=== PATIENT | male | born 1945 | race Hispanic/Latino ===

== ENCOUNTER 2019-03-05 14:31 | Inpatient (IN) | payer OTHER, SELFPAY ==
[2019-03-05] MEDS ORDERED: Nitroglycerin 2% Ointment 1 INCH/1 GM Packet ONE (14:54)
--- NOTE | 2019-03-05 15:26 | RAD ---
SINGLE VIEW OF THE CHEST: COMPARISON: None. HISTORY: Shortness of breath for 2 weeks. FINDINGS: Single view of the chest shows a normal sized cardiomediastinal silhouette. There is no evidence of c onsolidation, mass, or pleural effusion. The bones are unremarkable. IMPRESSION: No evidence of acute cardiopulmonary disease. POS: C
[2019-03-05 15:27] LABS: #Basophils 0.1 thou/uL (0.0-0.2); #Eosinphils 0.2 thou/uL (0.0-0.7); #Lymphocytes 1.7 thou/uL (1.20-3.40); #Monocytes 0.6 thou/uL (0.11-0.59); #Neutrophils 5.5 thou/uL (1.40-6.50); %Basophils 0.7 % (0.0-1.0); %Eosinophils 2.1 % (0.0-10.0); %Lymphocytes 21.1 % (21.0-51.0); %Monocytes 7.4 % (0.0-10.0); %Neutrophils 68.8 % (42.0-75.0); Hemoglobin 13.1 g/dL (14.0-18.0); Mean Corpuscular HGB CONC 31.2 g/dL (32.0-36.0); Mean Corpuscular Hemoglobin 29.5 pg (27.0-31.0); Mean Corpuscular Volume 94.7 fL (78.0-98.0); Mean Platelet Volume 7.2 fL (7.4-10.4); Platelet Count 262 thou/uL (130-400); RBC Distribution Width 13.4 % (11.5-14.5); Red Blood Cell (RBC) Count 4.44 mill/uL (4.70-6.10)
[2019-03-05 15:40] LABS: ALT (SGPT) 17 U/L (8-55); AST (SGOT) 15 U/L (5-34); Albumin 4.1 g/dL (3.4-4.8); Alkaline Phosphatase 68 U/L (40-150); Anion Gap 13 mmol/L (10-20); BUN (Urea Nitrogen) 15 mg/dL (8.4-25.7); Bilirubin, Total 0.8 mg/dL (0.2-1.2); CK (CPK) 88 U/L (30-200); Calc. Creatinine Clearance 0 mL/min (70-130); Calcium 10.3 mg/dL (7.8-10.44); Carbon Dioxide 25 mmol/L (23-31); Chloride 106 mmol/L (98-107); Estimated GFR-MDRD 69; Globulin 2.8 g/dL (2.4-3.5); Glucose 147 mg/dL (83-110); Lipase 9 U/L (8-78); Potassium 4.9 mmol/L (3.5-5.1); Protein, Total 6.9 g/dL (5.8-8.1); Sodium 139 mmol/L (136-145)
[2019-03-05 16:02] LABS: CKMB 5.3 ng/mL (0-6.6)
[2019-03-05] MEDS ORDERED: Dextrose 5% in Water 1,000 ML IV PRN (18:23)
[2019-03-05] MEDS ORDERED: HumaLOG 300 UNITS/3 ML VIAL SC PRN (18:23)
[2019-03-05] MEDS ORDERED: Dextrose 50% Abboject 50 ML SYRINGE SLOW IVP PRN (18:23)
[2019-03-05] MEDS ORDERED: Artificial Tears 18 DROP/0.9 ML EA EYE PRN (18:39)
[2019-03-05] MEDS ORDERED: Furosemide 40 MG/4 ML VIAL SLOW IVP SCH (19:15)
--- NOTE | 2019-03-05 19:20 | HP ---
PRIMARY CARE PROVIDER: [facility]. CHIEF COMPLAINT: "Stopped breathing." HISTORY OF PRESENT ILLNESS: This is a 74-year-old male with history of hypertension, diabetes, dyslipidemia, hypothyroidism, coronary artery disease with history of stents, who presents to the emergency room due to difficulty breathing. The patient reports about a week ago the onset of difficulty lying down at night to sleep, requiring him to sit up for him to breathe. He reports that the symptoms continued and today while sitting up he was unable to catch his breath. He contacted the nurse at the [facility] facility, who administered oxygen, but no medications. He was directed to the emergency room for further evaluation. The patient does endorse chest pressure for a few minutes today that was better when he stood up and started walking around. He denies any precipitating or relieving factors. Denies any other chest pain, nausea, or vomiting. He has noticed abdominal bloating that is new today. He does have a history of coronary disease and reports cardiac stents placed 3 or 4 years ago. In the emergency room, the patient evaluated, received nitropaste of 1 inch and hospitalist called for admission. ALLERGIES: NO KNOWN DRUG ALLERGIES. CURRENT MEDICATIONS: Reconciled with the list provided by the [facility]. 1. Aspirin 81 mg daily. 2. Carbamazepine extended release three tablets once a day. 3. Vitamin B12 injections 1000 mcg q.3 weeks. 4. Furosemide 20 mg b.i.d. 5. Glipizide 10 mg b.i.d. 6. Levothyroxine 150 mcg plus 25 mcg each once daily. 7. Metoprolol tartrate 25 mg b.i.d. 8. Novolin N 7 units at noon, 7 units at bedtime. 9. Pravastatin 40 mg at bedtime. 10. Ranitidine 150 mg daily. 11. Novolin R sliding scale insulin with meals. 12. Metformin 1000 mg b.i.d. 13. As needed Tylenol. PAST MEDICAL HISTORY: 1. Coronary artery disease with history of stents 3 or 4 years ago. 2. GERD. 3. Hypothyroidism secondary to hyperthyroidism for which he received radiation therapy. 4. Osteoarthritis. 5. Diabetes mellitus type 2. 6. Vitamin B12 deficiency. PAST SURGICAL HISTORY: 1. Appendectomy. 2. Tonsillectomy. 3. Back surgery. SOCIAL HISTORY: He denies alcohol or tobacco. He currently is incarcerated. He reports his surrogate decision maker is his , Catherine, and he is a full code. FAMILY HISTORY: Mom, who had a stroke. REVIEW OF SYSTEMS: Positive for abdominal bloating today, itchy watery eyes, chest pressure as noted above. He denies any nausea, vomiting, lower extremity swelling, fevers, or chills. All remaining review of systems are reviewed and negative. PHYSICAL EXAMINATION: VITAL SIGNS: Blood pressure 129/97, pulse 108, respirations 24, sats 99% on 3 L O2, temp 97.7. GENERAL: Awake, alert, responsive, in no apparent distress. The patient is currently in hand and leg cuffs and attended by 2 officers. HEENT: His pupils are equal and round. No scleral icterus. Oral mucosa is pink and moist. NECK: Supple, nontender. No audible carotid bruits. LYMPHATICS: No palpable, cervical, or supraclavicular lymphadenopathy. LUNGS: The patient has right-sided basilar rales. No audible wheezing or rhonchi. HEART: Normal S1 and S2. Regular rate and rhythm. No significant murmur. ABDOMEN: Soft, present bowel sounds, nontender, nondistended. EXTREMITIES: 2+ pitting edema bilateral. VASCULAR: 2+ dorsalis pedis pulses. SKIN: No visible rashes. NEUROLOGIC: No focal deficits. PSYCH: Appears euthymic. DIAGNOSTIC DATA: EKG personally reviewed 1st degree AV block with MI interval of 232, no ST changes, abnormal R-wave progression, sinus rhythm with QTc of 456. Chest x-ray personally reviewed. It does show some volume overload by my read, no pleural effusions and per Radiology read, no acute process. LABORATORY DATA: Labs reviewed. CBC; 8, 13.1, 32.1, 262. Chemistry; 139, 4.9, 106, 25, 15, 1.05, 147. Calcium 10.3. LFTs negative. BNP 834. Troponin 0.043. IMPRESSION: 1. Acute heart failure with no reported history of the same, with the symptoms of orthopnea, lower extremity edema, abdominal bloating, on a patient who is on daily diuretic therapy. 2. Coronary artery disease with history of stents and indeterminate troponin level here. 3. Diabetes mellitus, unknown control. 4. Hypertension. 5. Dyslipidemia. 6. Gastroesophageal reflux disease. 7. Eye irritation. 8. Unknown medical problem for which patient is prescribed carbamazepine. PLAN: 1. Admission to the hospital. 2. Start diuresis with IV furosemide dose now, and scheduled b.i.d. dosing starting tomorrow with monitoring renal function and potassium levels. 3. Continuing his current beta arnol, we will obtain an echocardiogram and Cardiology consultation. 4. Continuing the daily aspirin, statin. 5. Check TSH to ensure that he is on appropriate levothyroxine replacement. 6. We will use sliding scale insulin for now, I anticipate long-acting insulin can be added, however, want to see at least overnight what his blood sugars are. Holding metformin and glipizide for now, add back if the patient does not require any studies. 7. We will add some eyedrops for the itchy watery eyes. 8. DVT prophylaxis with pneumatic compression devices. 9. GI prophylaxis, not indicated. We will keep him on an H2 arnol. 10. Code status is full. Surrogate decision maker is his . 11. The patient is at high risk given age comorbidities and current presentation. Reviewed the plan of care with the patient as well as the [facility] attendant. No questions or further needs at the end of evaluation. Anticipate the patient will be here for few days for diuresis, medication adjustment, and monitoring. Job ID: [id number] MTDD
[2019-03-05 19:33] LABS: Troponin I 0.056 ng/mL (< 0.028)
[2019-03-05] MEDS: Pravastatin Sodium 40 MG TAB PO SCH (20:31)
[2019-03-05] MEDS: Metoprolol Tartrate 25 MG TAB PO SCH (20:31)
[2019-03-05] MEDS: Famotidine 20 MG TAB PO SCH (20:31)
[2019-03-05 21:46] VITALS: BMI 35.1
[2019-03-05 21:53] LABS: Troponin I 0.042 ng/mL (< 0.028)
[2019-03-06] MEDS: Acetaminophen 325 MG TAB PO PRN ×3 (00:34→20:31)
[2019-03-06] MEDS: Furosemide 40 MG/4 ML VIAL SLOW IVP SCH ×2 (05:12→13:32)
[2019-03-06] MEDS: Levothyroxine 175 MCG TAB PO SCH (05:12)
[2019-03-06 05:14] LABS: Anion Gap 13 mmol/L (10-20); BUN (Urea Nitrogen) 15 mg/dL (8.4-25.7); Calc. Creatinine Clearance 92 mL/min (70-130); Calcium 10.3 mg/dL (7.8-10.44); Carbon Dioxide 26 mmol/L (23-31); Chloride 104 mmol/L (98-107); Estimated GFR-MDRD 65; Glucose 200 mg/dL (83-110); Potassium 5.3 mmol/L (3.5-5.1); Sodium 138 mmol/L (136-145)
[2019-03-06] MEDS ORDERED: Prevnar 13-Val Conj/PF 0.5 ML SYRINGE IM ONE (09:00)
[2019-03-06] MEDS: Aspirin Chewable 81 MG TAB PO SCH (10:00)
[2019-03-06] MEDS: Metoprolol Tartrate 25 MG TAB PO SCH ×2 (10:00→20:30)
[2019-03-06] MEDS: Famotidine 20 MG TAB PO SCH ×2 (10:00→20:31)
[2019-03-06] MEDS: HumaLOG 300 UNITS/3 ML VIAL SC PRN ×3 (10:01→17:34)
--- NOTE | 2019-03-06 14:39 | PRG ---
DATE OF SERVICE: 03/06/2019 SUBJECTIVE: The patient was seen and examined at the bedside. He is feeling better. His shortness of breath improved. He does not have any chest pain. OBJECTIVE: VITAL SIGNS: Blood pressure is 147/93, pulse is 108, respirations 18, O2 saturation is 95% on room air, and his temperature is 97.8. HEENT: His head is atraumatic and normocephalic. Sclerae are nonicteric. Oral mucosa is slightly dry. NECK: Supple. Obese. HEART: S1 and S2 normal. There is a 2/6 systolic murmur at the left sternal border, mostly audible. LUNGS: Breath sounds diminished at both bases with bilateral crackles at both bases. ABDOMEN: Soft and nontender. Bowel sounds are present. No organomegaly. EXTREMITIES: 1+ peripheral edema similar bilaterally. NEUROLOGICAL: He follows my commands. He moves his all 4 extremities. There is no any motor or sensory deficits. LABORATORY DATA: Sodium of 130, potassium 5.3, chloride 104, CO2 of 26, BUN 15, creatinine 1.10, glycemia is ranging from 147 to 311, and calcium is 10.3. Three sets of troponin I are 0.043, 0.056, and 0.042. BNP 834.4. Third generation TSH is 0.9225. IMPRESSION: 1. Acute heart failure with history of previous problems. 2. Coronary artery disease with history of stents and indeterminate troponin levels. 3. Diabetes mellitus. 4. Hyperlipidemia. 5. Dyslipidemia. 6. Gastroesophageal reflux disease. PLAN: Continue diuresis. Echocardiogram is pending. Cardiology consultation is pending. We will continue his aspirin and statin. He is getting appropriate dose of levothyroxine. His TSH is normal. We will continue his glipizide and long-acting insulin, which is NPH 7 units at bedtime and we will continue DVT prophylaxis. Job ID: [id number]
--- NOTE | 2019-03-06 16:36 | CON ---
DATE OF CONSULTATION: 03/06/2019 REASON FOR CONSULTATION: Shortness of breath. HISTORY OF PRESENT ILLNESS: Mr. Soto is a 74-year-old white gentleman, who [facility], who presented for shortness of breath, where he states that he has been noticing for the last week worsening shortness of breath, difficulty sleeping at night, and cough and shortness of breath when lying flat. He went to see the nurse in the [facility] and eventually was transferred here for further evaluation. He was found to be in volume overload, so he has been started on IV Lasix, and Cardiology is being consulted for this. He states that he has had stents placed about 4 years ago. He does not remember anything about that admission other than he had stents placed. He cannot remember if he was told he had a weak heart or anything else for that matter. He has not seen a budget controller since. PAST MEDICAL HISTORY: 1. Hypertension. 2. Type 2 diabetes. 3. Hyperlipidemia. 4. . 5. Coronary artery disease with history of stents 4 years ago. 6. receiving radiation therapy. 7. Osteoarthritis. 8. Vitamin B12 deficiency. PAST SURGICAL HISTORY: 1. Appendectomy. 2. Tonsillectomy. 3. Back surgery. 4. Stenting as well. SOCIAL HISTORY: No alcohol, tobacco, or drugs. Currently incarcerated. FAMILY HISTORY: Mother with a stroke. No early coronary artery disease. OUTPATIENT MEDICATIONS: 1. Aspirin 81 a day. 2. Carbamazepine. 3. Vitamin B12. 4. Furosemide 20 mg b.i.d. 5. Glipizide 10 mg b.i.d. 6. Levothyroxine 175 mcg a day. 7. Metoprolol tartrate 25 mg b.i.d. 8. Novolin N. 9. Pravastatin 40 mg a day. 10. Ranitidine. 11. Novolin R sliding scale. 12. Metformin 1000 b.i.d. 13. Tylenol p.r.n. ALLERGIES: NO KNOWN DRUG ALLERGIES. REVIEW OF SYSTEMS: A 12-point review of systems was done and was all negative unless stated in the history of present illness. PHYSICAL EXAMINATION: VITAL SIGNS: Temperature 97.8, pulse 108, respiratory rate 18, satting 95% on room air, and blood pressure 147/93. GENERAL: Awake, alert, and oriented x3, in no distress. HEENT: Normocephalic and atraumatic. NECK: Supple. LUNGS: Have mild crackles at the bases. CARDIOVASCULAR: S1 and S2. No S3 or S4. There is a grade 2/6 systolic murmur at the right upper sternal border. ABDOMEN: Soft, positive bowel sounds. EXTREMITIES: No edema. SKIN: Warm and dry. LABORATORY DATA: Reviewed. CBC with a white count of 8, hemoglobin of 13, hematocrit of 42, platelet count of 262. Chemistry with sodium of 138, potassium 5.3, chloride, carbon dioxide, anion gap, BUN are 104, 26, 13, 15, creatinine 1.1, GFR of 65. Troponin was in the indeterminate range of 0.04, 0.05, and 0.04. TSH was on the low side and was 0.9. Lipase was normal. BNP was 834. ASSESSMENT: 1. Acute on chronic systolic versus diastolic heart failure. 2. Volume overload. 3. Hypertension. 4. Coronary artery disease. PLAN: 1. No evidence of an acute coronary syndrome at this time. 2. Symptoms concerning more for heart failure than an acute coronary syndrome. 3. Agree with continued IV diuresis. 4. Echocardiogram is still pending at the time of evaluation. He cannot tell me much information about his heart otherwise. 5. Further recommendations per results of echocardiogram. 6. For now, continue diuresis. Thank you for letting us participate in the care of your patient. We will follow. Job ID: [id number]
[2019-03-06] MEDS: glipiZIDE 10 MG TAB PO SCH (20:30)
[2019-03-06] MEDS: Pravastatin Sodium 40 MG TAB PO SCH (20:31)
[2019-03-06] MEDS ORDERED: NPH, Human Insulin Isophane 300 UNIT/3 ML VIAL SC SCH (21:00)
[2019-03-07 06:17] LABS: Anion Gap 11 mmol/L (10-20); BUN (Urea Nitrogen) 18 mg/dL (8.4-25.7); Calc. Creatinine Clearance 96 mL/min (70-130); Calcium 9.4 mg/dL (7.8-10.44); Carbon Dioxide 30 mmol/L (23-31); Chloride 99 mmol/L (98-107); Estimated GFR-MDRD 71; Glucose 150 mg/dL (83-110); Potassium 4.1 mmol/L (3.5-5.1); Sodium 136 mmol/L (136-145)
[2019-03-07] MEDS: Levothyroxine 175 MCG TAB PO SCH (06:17)
[2019-03-07] MEDS: Furosemide 40 MG/4 ML VIAL SLOW IVP SCH ×2 (06:17→13:17)
[2019-03-07] MEDS: Famotidine 20 MG TAB PO SCH ×2 (08:47→20:40)
[2019-03-07] MEDS: Aspirin Chewable 81 MG TAB PO SCH (08:47)
[2019-03-07] MEDS: glipiZIDE 10 MG TAB PO SCH ×2 (08:48→20:40)
[2019-03-07] MEDS: Metoprolol Tartrate 25 MG TAB PO SCH ×2 (08:52→20:43)
[2019-03-07] MEDS: HumaLOG 300 UNITS/3 ML VIAL SC PRN ×2 (11:14→17:34)
--- NOTE | 2019-03-07 14:51 | PRG ---
DATE OF SERVICE: 03/07/2019 SUBJECTIVE: The patient is seen and examined at bedside. Two guards are present, one in the room and one outside of the room. The patient has plastic handcuffs and cuffs on his ankles. He states that he feels better. His appetite is fair. Bowel movements, none yesterday. OBJECTIVE: VITAL SIGNS: Blood pressure is 119/73, pulse is 102, temperature is 98.3, respirations 18, O2 saturation 95% on room air. HEENT: His head is atraumatic and normocephalic. Eyes are PERRLA. Sclerae are nonicteric. Oral mucosa is moist. NECK: Supple. LUNGS: Breath sounds diminished at both bases with some bilateral crackles at both bases. HEART: S1 and S2 normal. No S3. No S4. Somewhat distant. ABDOMEN: Soft, nontender. Bowel sounds are present. No organomegaly. EXTREMITIES: No clubbing, cyanosis, or edema. NEUROLOGICAL: He is alert and oriented x3. There are no any motor deficits. LABORATORY DATA: Normal chemistry, glycemia is ranging from 130 to 249. IMPRESSION: 1. Acute congestive heart failure. 2. Coronary artery disease with history of stenting. 3. Diabetes mellitus. 4. Hyperlipidemia. 5. Dyslipidemia. 6. Gastroesophageal reflux disease. PLAN: Plan is to continue diuresis. The patient was seen by Dr. Young for Cardiology consultation. He agrees with the current plan. Continue statin and aspirin. I will intensify his diabetic regimen since his glycemia is ranging from 200 to 300, and the current regimen he was on before this hospitalization is not working. We will double the dose on NPH and do twice-a-day dosing. Job ID: [id number]
--- NOTE | 2019-03-07 15:19 | PQF ---
DEEPAK GAVIRIA ZBIGNIEW A MD [id number] [facility]-288 [id number] CLINICAL DOCUMENTATION IMPROVEMENT CLARIFICATION FORM: ICD-10 Updated PLEASE DO AN ADDENDUM TO THE PROGRESS NOTE WITH ANY DOCUMENTATION UPDATES OR ADDITIONS AND CARRY THROUGH TO DC SUMMARY. THANK YOU. DATE: 03/07/19 ATTN:DR. Francoise LAYTON Please exercise your independent, professional judgment in responding to the clarification form. Clinical indicators are provided on the bottom of this form for your review. Please check appropriate box(s): [ ] NSTEMI ([place] type I) [ ] NSTEMI due to Demand Ischemia (AMI Type II) [ ] Demand Ischemia without [place] [ ] Other diagnosis [ ] Unable to determine In addition, please specify: Present on Admission (POA): [ ] Yes [ ] No [ ] Unable to determine CLINICAL INDICATORS - SIGNS / SYMPTOMS / LABS 03/05 ED PHYSICIAN FINAL DX: CHEST PAIN, DYSPNEA , ELEVATED TROPONIN 03/05 H & P (DEEPAK) CORONARY ARTERY DISEASE W HISTORY OF STENTS AND INDETERMINATE TROPONIN LEVEL HERE. 03/05 TROPONIN I 0.043, 0.056, 0.042 03/06 PN ( CALIN) IMPRESSION 2) CORONARY ARTERY DISEASE W HISTORY OF STENTS AND INDETERMINATE TROPONIN LEVELS. RISK: HX OF CAD W STENTS , DM, DYSLIPIDEMIA ( DEEPAK/ H & P ) TREATMENTS: FEED RESEARCH TECHNICIAN CONSULT CONTINUOUS TELEMETRY MONITORING THANK YOU! JENNY (This form is maintained as a part of the permanent medical record) 2014 [employer], [employer]. All Rights Reserved [email or web address] [phone] MTDD
--- NOTE | 2019-03-07 15:25 | PDOC.CTH ---
Cardiology Progress Note - Subjective He is feeling better. Breathing is back to normal. - Objective Vital Signs Temp Pulse Resp BP Pulse Ox 03/07/19 13:13 119/73 03/07/19 11:10 98.3 F 102 H 18 97/54 L 95 03/07/19 08:45 108/70 03/07/19 07:33 98.5 F 95 18 104/56 L 94 L 03/07/19 03:45 98.3 F 88 20 98/67 92 L Weight 233 lb 3.2 oz 03/06/19 03/07/19 03/08/19 06:59 06:59 06:59 Intake Total 215 600 Output Total 3150 4500 Balance -2935 -3900 - Physical Examination General/Neuro: alert & oriented x3, NAD Neck: no JVD present Lungs: CTA, unlabored respirations Heart: RRR Abdomen: NT/ND Extremities: other: (no edema) - Telemetry Telemetry Rhythm: NSR - Labs Result Diagrams: 03/05/19 15:15 03/07/19 05:33 Troponin/CKMB CK-MB (CK-2) 5.3 ng/mL (0-6.6) 03/05/19 15:15 Troponin I 0.042 ng/mL (< 0.028) H 03/05/19 21:21 - Assessment/Plan 1. Acute on chronic diastolic heart failure. 2. Elevated gradient across aortic valve. 3. HTN 4. CAD, stable no ACS. PLAN: - Aortic valve looks to open adequately by direct visualization of the valve with echo but gradients are elevated and calculated valve area would make the valve seem severely stenotic. I do not think this is the case. I cannot see any sub aortic stenosis or any sub aortic membrane on trans thoracic echo. - Will further evaluate Aortic valve with a FREDDY on Sunday. - Would cut back on diuresis to once a day IV lasix and switch to PO lasix daily on Sunday. - Continue other home meds.
[2019-03-07] MEDS: Pravastatin Sodium 40 MG TAB PO SCH (20:40)
[2019-03-07] MEDS: NPH, Human Insulin Isophane 300 UNIT/3 ML VIAL SC SCH (20:44)
[2019-03-08] MEDS: Levothyroxine 175 MCG TAB PO SCH (05:46)
[2019-03-08 07:51] LABS: Anion Gap 14 mmol/L (10-20); BUN (Urea Nitrogen) 21 mg/dL (8.4-25.7); Calc. Creatinine Clearance 84 mL/min (70-130); Calcium 9.8 mg/dL (7.8-10.44); Carbon Dioxide 28 mmol/L (23-31); Chloride 98 mmol/L (98-107); Estimated GFR-MDRD 66; Glucose 185 mg/dL (83-110); Potassium 3.7 mmol/L (3.5-5.1); Sodium 136 mmol/L (136-145)
[2019-03-08] MEDS ORDERED: Furosemide 40 MG/4 ML VIAL SLOW IVP SCH (09:00)
--- NOTE | 2019-03-08 09:33 | PDOC.CTH ---
Cardiology Progress Note - Subjective No complaints. Good diuresis overnight. - Objective Vital Signs Temp Pulse Resp BP Pulse Ox 03/08/19 07:59 94 L 03/08/19 07:56 98.4 F 103 H 20 116/59 L 87 L 03/08/19 03:40 98.3 F 101 H 20 111/56 L 93 L 03/07/19 23:15 104 H 108/52 L Weight 225 lb 8 oz 03/07/19 03/08/19 03/09/19 06:59 06:59 06:59 Intake Total 600 600 Output Total 4500 3600 Balance -3900 -3000 - Physical Examination General/Neuro: alert & oriented x3 Neck: no JVD present Lungs: CTA Heart: RRR, other: (2/6 SM at [facility]) Abdomen: NT/ND - Telemetry Telemetry Rhythm: SR - Labs Result Diagrams: 03/05/19 15:15 03/09/19 05:22 Troponin/CKMB CK-MB (CK-2) 5.3 ng/mL (0-6.6) 03/05/19 15:15 Troponin I 0.042 ng/mL (< 0.028) H 03/05/19 21:21 - Assessment/Plan 1. Acute on chronic diastolic heart failure. 2. Elevated gradient across aortic valve. 3. HTN 4. CAD, stable no ACS. PLAN: - Diurese and plan for FREDDY to asses AV on Sunday. Pt seen and examined. Pt prepared to FREDDY on Sunday. No other recommentaions. Keep NPO after MN on sunday
[2019-03-08] MEDS: Metoprolol Tartrate 25 MG TAB PO SCH ×2 (10:24→20:27)
[2019-03-08] MEDS: Famotidine 20 MG TAB PO SCH ×2 (10:24→20:27)
[2019-03-08] MEDS: glipiZIDE 10 MG TAB PO SCH (10:25)
[2019-03-08] MEDS: Aspirin Chewable 81 MG TAB PO SCH (10:25)
[2019-03-08] MEDS: NPH, Human Insulin Isophane 300 UNIT/3 ML VIAL SC SCH ×2 (12:31→20:59)
[2019-03-08] MEDS: HumaLOG 300 UNITS/3 ML VIAL SC PRN ×2 (12:47→17:54)
--- NOTE | 2019-03-08 13:29 | EKG ---
Test Reason : SOB Blood Pressure : / mmHG Vent. Rate : 106 BPM Atrial Rate : 106 BPM P-R Int : 000 ms QRS Dur : 078 ms QT Int : 344 ms P-R-T Axes : 085 -11 045 degrees QTc Int : 456 ms Sinus tachycardia with 1st degree A-V block with Premature supraventricular complexes Otherwise normal ECG Confirmed by CRISTINA KELLY DO ([id number]), subeditor GAVIN RECINOS ([id number]) on 03/08/2019 1:29:30 PM Referred By: Confirmed By:CRISTINA KELLY DO
[2019-03-08] MEDS ORDERED: NPH, Human Insulin Isophane 300 UNIT/3 ML VIAL SC SCH (14:45)
--- NOTE | 2019-03-08 15:07 | PRG ---
DATE OF SERVICE: 03/08/2019 SUBJECTIVE: The patient is seen and examined at the bedside. He gets somewhat dizzy and tachycardic when he gets up and this makes him feel bad. OBJECTIVE: VITAL SIGNS: Blood pressure is 136/77, pulse is 92, respiratory rate is 20, he is 93% on room air. HEENT: His head is atraumatic and normocephalic. Eyes are PERRLA. Sclerae are nonicteric. Oral mucosa is moist. NECK: Supple. LUNGS: Breath sounds diminished at both bases with few crackles bilaterally at both bases. HEART: S1 and S2, somewhat distant. Somewhat irregular. No S3. No S4. ABDOMEN: Soft, nontender. Bowel sounds present. No organomegaly. EXTREMITIES: 1+ peripheral edema similar bilaterally on lower extremities. NEUROLOGIC: He is alert and oriented x4. There are no any motor deficits. LABORATORY DATA: Showed normal chemistry, glycemia is ranging from 157 to 263, calcium is 9.8. Echocardiogram showed LVEF estimated at 50% to 55%, grade 1 diastolic dysfunction, moderate mitral regurgitation, and hemodynamic measurements suggestive of [id number] aortic valve stenosis, but this measurement did not go with direct visualization of the valve and since the valve is opening adequately, FREDDY is recommended. IMPRESSION: 1. Acute congestive heart failure. 2. Coronary artery disease with history of stenting. 3. Diabetes mellitus type 2. 4. Hyperlipidemia. 5. Gastroesophageal reflux disease. PLAN: Senior Sql Server Developer wants to do FREDDY to get better view of his heart. I am going to stop his Lasix today because it looks like he is volume depleted. He gets tachycardic when he gets up and his glycemia is ranging from 150 to 265, which is some improvement from the previous measurements, which were above 200s and 300s most of the time. I will continue his regimen with small change. I will go up on his insulin to 10 units twice a day and continue sliding scale. Job ID: [id number]
[2019-03-08] MEDS ORDERED: glipiZIDE 10 MG TAB PO SCH (18:00)
[2019-03-08] MEDS: Pravastatin Sodium 40 MG TAB PO SCH (20:27)
[2019-03-09] MEDS: Acetaminophen 325 MG TAB PO PRN (00:41)
[2019-03-09] MEDS ORDERED: Diabetic Tussin 200 MG/10 ML UDCUP PO PRN (00:42)
[2019-03-09] MEDS: Levothyroxine 175 MCG TAB PO SCH (05:38)
[2019-03-09 06:04] LABS: Anion Gap 12 mmol/L (10-20); BUN (Urea Nitrogen) 24 mg/dL (8.4-25.7); Calc. Creatinine Clearance 108 mL/min (70-130); Calcium 9.5 mg/dL (7.8-10.44); Carbon Dioxide 28 mmol/L (23-31); Chloride 99 mmol/L (98-107); Estimated GFR-MDRD 90; Glucose 174 mg/dL (83-110); Potassium 3.5 mmol/L (3.5-5.1); Sodium 135 mmol/L (136-145)
[2019-03-09] MEDS: Metoprolol Tartrate 25 MG TAB PO SCH ×2 (08:18→20:44)
[2019-03-09] MEDS: glipiZIDE 10 MG TAB PO SCH ×2 (08:18→16:01)
[2019-03-09] MEDS: guaiFENesin ER 600 MG TAB PO SCH ×2 (08:18→20:44)
[2019-03-09] MEDS: Famotidine 20 MG TAB PO SCH ×2 (08:19→20:44)
[2019-03-09] MEDS: Aspirin Chewable 81 MG TAB PO SCH (08:19)
[2019-03-09] MEDS: NPH, Human Insulin Isophane 300 UNIT/3 ML VIAL SC SCH ×2 (08:22→20:51)
[2019-03-09] MEDS ORDERED: Metoprolol Tartrate 25 MG TAB PO SCH (12:00)
[2019-03-09 12:10] LABS: #Eosinphils 0.1 thou/uL (0.0-0.7); #Lymphocytes 1.5 thou/uL (1.20-3.40); #Monocytes 0.9 thou/uL (0.11-0.59); #Neutrophils 8.3 thou/uL (1.40-6.50); %Basophils 0.4 % (0.0-1.0); %Lymphocytes 13.5 % (21.0-51.0); %Monocytes 7.9 % (0.0-10.0); %Neutrophils 77.2 % (42.0-75.0); Hemoglobin 14.7 g/dL (14.0-18.0); Mean Corpuscular HGB CONC 30.3 g/dL (32.0-36.0); Mean Corpuscular Hemoglobin 28.3 pg (27.0-31.0); Mean Corpuscular Volume 93.4 fL (78.0-98.0); Platelet Count 307 thou/uL (130-400); RBC Distribution Width 13.3 % (11.5-14.5); Red Blood Cell (RBC) Count 5.18 mill/uL (4.70-6.10); White Blood Cell (WBC) Count 10.8 thou/uL (4.8-10.8)
--- NOTE | 2019-03-09 12:31 | PDOC.CTH ---
Cardiology Progress Note - Subjective C/O dry cough today. No CP/SOB. Toprol decreased secondary to hypotension today. - Objective Vital Signs Temp Pulse Pulse Pulse Resp BP BP 03/09/19 11:54 114 H 104 H 128/77 128/67 03/09/19 11:06 97.9 F 100 18 03/09/19 08:00 98.0 F 101 H 16 03/09/19 03:35 98.8 F 97 20 BP BP Pulse Ox Pulse Ox Pulse Ox 03/09/19 11:54 94 L 96 03/09/19 11:06 93/52 L 95 03/09/19 08:00 86/42 L 94 L 03/09/19 03:35 101/54 L 97 Weight 223 lb 03/08/19 03/09/19 03/10/19 06:59 06:59 06:59 Intake Total 600 360 Output Total 3600 1300 Balance -3000 -940 - Physical Examination General/Neuro: alert & oriented x3 Neck: no JVD present Lungs: CTA Heart: other: (2/6 SM at [facility] - Labs Result Diagrams: 03/09/19 11:46 03/09/19 05:22 Troponin/CKMB CK-MB (CK-2) 5.3 ng/mL (0-6.6) 03/05/19 15:15 Troponin I 0.042 ng/mL (< 0.028) H 03/05/19 21:21 - Assessment/Plan 1. Acute on chronic diastolic heart failure. 2. Elevated gradient across aortic valve. 3. HTN 4. CAD, stable no ACS. Volume status improved. Plan for FREDDY tomorrow by Dr. Young. No changes on my part today.
[2019-03-09] MEDS: HumaLOG 300 UNITS/3 ML VIAL SC PRN ×2 (12:35→17:48)
--- NOTE | 2019-03-09 14:04 | PRG ---
DATE OF SERVICE: 03/09/2019 SUBJECTIVE: The patient is seen and examined at the bedside. He gets dizzy when he gets up and he wants me to keep the Green catheter in. He does want to get up and urinate since he is on diuretics. His appetite is fair. OBJECTIVE: VITAL SIGNS: Blood pressure is running between 86 systolic to 114 and from 42 to 77 diastolic. His temperature is 97.9, pulse is 100, respiratory rate is 18, and O2 saturation is a 95. HEENT: His head is atraumatic and normocephalic. Eyes are PERRLA. Sclerae are nonicteric. Oral mucosa is moist. NECK: Supple. LUNGS: Breath sounds somewhat diminished at both bases. HEART: S1 and S2 normal. ABDOMEN: Soft, nontender. EXTREMITIES: 1+ peripheral edema similar bilaterally on both lower extremities. NEUROLOGICAL: He follows my commands. He moves his all 4 extremities. LABORATORY DATA: Showed normal CBC. Sodium of 135. The rest of chemistry is within normal limits, except for glucose which is running from 158 to 327. Microbiology, none. IMPRESSION: 1. Acute congestive heart failure. 2. Coronary artery disease with history of stenting. 3. Diabetes mellitus type 2. 4. Hyperlipidemia. 5. Gastroesophageal reflux disease. 6. Hypotension. PLAN: We held his Lasix today and his blood pressure should be getting better, although I am planning to cut back on his metoprolol from 25 to 12.5 mg twice a day and start him on 40 mg of Lasix p.o. tomorrow morning. Also, the plan is to go up on his insulin NPH to 16 units twice a day and continue his sliding scale. We would keep his Green catheter in, and we will check his vitamin D level. Job ID: [id number]
[2019-03-09] MEDS: Pravastatin Sodium 40 MG TAB PO SCH (20:44)
[2019-03-10] MEDS ORDERED: Ondansetron PF 4 MG/2 ML Vial IVP PRN (00:20)
[2019-03-10 05:04] LABS: Anion Gap 10 mmol/L (10-20); BUN (Urea Nitrogen) 25 mg/dL (8.4-25.7); Calc. Creatinine Clearance 96 mL/min (70-130); Carbon Dioxide 28 mmol/L (23-31); Chloride 101 mmol/L (98-107); Estimated GFR-MDRD 78; Glucose 158 mg/dL (83-110); Potassium 3.9 mmol/L (3.5-5.1); Sodium 135 mmol/L (136-145)
[2019-03-10] MEDS: Levothyroxine 175 MCG TAB PO SCH (05:31)
[2019-03-10] MEDS: Metoprolol Tartrate 25 MG TAB PO SCH ×2 (05:34→20:25)
[2019-03-10] MEDS: glipiZIDE 10 MG TAB PO SCH ×2 (09:00→16:43)
[2019-03-10] MEDS: Famotidine 20 MG TAB PO SCH ×2 (09:00→20:25)
[2019-03-10] MEDS: guaiFENesin ER 600 MG TAB PO SCH ×2 (09:00→22:32)
[2019-03-10] MEDS: NPH, Human Insulin Isophane 300 UNIT/3 ML VIAL SC SCH ×2 (09:05→20:26)
--- NOTE | 2019-03-10 10:13 | PQF ---
DEEPAK GAVIRIA ZBIGNIEW A MD [id number] [facility]-288 [id number] CLINICAL DOCUMENTATION IMPROVEMENT CLARIFICATION FORM: ICD-10 Updated PLEASE DO AN ADDENDUM TO THE PROGRESS NOTE WITH ANY DOCUMENTATION UPDATES OR ADDITIONS AND CARRY THROUGH TO DC SUMMARY. THANK YOU. DATE: 03/07/19 ,03/12/19 ATTN:DR. Francoise LAYTON, DR. Aleta SOSA Please exercise your independent, professional judgment in responding to the clarification form. Clinical indicators are provided on the bottom of this form for your review. Please check appropriate box(s): [ ] NSTEMI ([place] type I) [ x ] NSTEMI due to Demand Ischemia (AMI Type II) [ ] Demand Ischemia without [place] [ ] Other diagnosis [ ] Unable to determine In addition, please specify: Present on Admission (POA): [ x ] Yes [ ] No [ ] Unable to determine CLINICAL INDICATORS - SIGNS / SYMPTOMS / LABS 03/05 ED PHYSICIAN FINAL DX: CHEST PAIN, DYSPNEA , ELEVATED TROPONIN 03/05 H & P (DEEPAK) CORONARY ARTERY DISEASE W HISTORY OF STENTS AND INDETERMINATE TROPONIN LEVEL HERE. 03/05 TROPONIN I 0.043, 0.056, 0.042 03/06 PN ( CALIN) IMPRESSION 2) CORONARY ARTERY DISEASE W HISTORY OF STENTS AND INDETERMINATE TROPONIN LEVELS. 03/07 PN (CAREY) ACUTE ON CHRONIC DIASTOLIC HEART FAILURE 03/07 ECHO: EF 50-55, MILDLY DILATED LEFT ATRIUM, MITRAL CALCIFICATION IS PRESENT , MODERATE MITRAL REGURGITATION, MILD TRICUSPID REGURGITATION, AORTIC VALVE SCLEROSIS BUT OPENS WELL. RECOMMEND FREDDY FOR FURTHER EVALUATION. RISK: HX OF CAD W STENTS , DM, DYSLIPIDEMIA ( DEEPAK/ H & Nico ) TREATMENTS: CREDIT PRODUCT ANALYST CONSULT CONTINUOUS TELEMETRY MONITORING THANK YOU ! JENNY (This form is maintained as a part of the permanent medical record) 2014 [employer], [employer]. All Rights Reserved [email or web address] [phone] [email or web address]
[2019-03-10] MEDS: Aspirin Chewable 81 MG TAB PO SCH (11:05)
[2019-03-10] MEDS ORDERED: PROPOFOL 20 ML ONE (12:52)
--- NOTE | 2019-03-10 14:24 | PRG ---
DATE OF SERVICE: 03/10/2019 SUBJECTIVE: The patient is seen and examined at the bedside. He is getting ready for his FREDDY by Dr. Young. He still gets somewhat dizzy when he gets up. OBJECTIVE: VITAL SIGNS: Blood pressure is 108/61, pulse is 99, temperature is 97.7, respirations are 16, O2 saturation is 98% on room air. HEENT: His head is atraumatic and normocephalic. Sclerae are nonicteric. Oral mucosa is moist. NECK: Supple. LUNGS: Diminished at both bases with few crackles bilaterally at both bases. HEART: S1, S2 normal. No S3. No S4. There is a systolic murmur at the right sternal border, 3/6. EXTREMITIES: No clubbing, cyanosis, or edema. NEUROLOGICAL: He is alert and oriented x4. LABORATORY DATA: Showed sodium of 135, potassium 3.9, chloride 101, CO2 of 28, BUN 25, creatinine 0.94. Glycemia is ranging from 147 to 209. Vitamin D level is 5. Calcium is 10.0. IMPRESSION: 1. Acute congestive heart failure. 2. Coronary artery disease with history of stenting. 3. Diabetes mellitus type 2. 4. Hyperlipidemia. 5. Gastroesophageal reflux disease. 6. Hypotension secondary to iatrogenic cause. 7. Aortic valve murmur, which is going to be checked with a FREDDY, which is supposed to be done today by Dr. Young. We will continue the regimen as of now. Job ID: [id number]
[2019-03-10] MEDS ORDERED: PROPOFOL 200 MG/20 ML VIAL ONE (15:28)
[2019-03-10] MEDS: Pravastatin Sodium 40 MG TAB PO SCH (20:25)
[2019-03-11 05:23] LABS: Anion Gap 12 mmol/L (10-20); BUN (Urea Nitrogen) 27 mg/dL (8.4-25.7); Calc. Creatinine Clearance 96 mL/min (70-130); Calcium 9.9 mg/dL (7.8-10.44); Carbon Dioxide 26 mmol/L (23-31); Chloride 101 mmol/L (98-107); Estimated GFR-MDRD 80; Glucose 216 mg/dL (83-110); Potassium 4.4 mmol/L (3.5-5.1); Sodium 135 mmol/L (136-145)
[2019-03-11] MEDS: Levothyroxine 175 MCG TAB PO SCH (05:33)
[2019-03-11] MEDS: guaiFENesin ER 600 MG TAB PO SCH ×2 (09:01→20:09)
[2019-03-11] MEDS: Famotidine 20 MG TAB PO SCH ×2 (09:01→20:09)
[2019-03-11] MEDS: glipiZIDE 10 MG TAB PO SCH ×2 (09:02→16:28)
[2019-03-11] MEDS: Acetaminophen 325 MG TAB PO PRN ×2 (09:02→21:06)
[2019-03-11] MEDS: Aspirin Chewable 81 MG TAB PO SCH (09:02)
[2019-03-11] MEDS: Metoprolol Tartrate 25 MG TAB PO SCH ×2 (09:02→21:03)
[2019-03-11] MEDS: NPH, Human Insulin Isophane 300 UNIT/3 ML VIAL SC SCH ×2 (09:05→21:01)
[2019-03-11] MEDS: HumaLOG 300 UNITS/3 ML VIAL SC PRN ×2 (09:05→12:35)
--- NOTE | 2019-03-11 11:26 | ECHO ---
TRANSESOPHAGEAL ECHOCARDIOGRAM: DATE OF SERVICE: 03/10/19 REASON FOR STUDY: Heart failure. Transesophageal echocardiogram performed to evaluate for aortic earlene ve elevated pressures. DETAILS: The anesthesia department provided anesthesia for the patient. Please see their notes for details. Af ter adequate level of sedation achieved, the transesophageal probe was inserted into the patient's mo uth and into the esophagus, and multiplanar views were then obtained. FINDINGS: Left ventricle normal sized with reduced systolic function. Ejection fraction estimated at about 35-4 0%. Left atrium dilated. Right atrium severely dilated. Right ventricle dilated with reduced RV systolic function. Aortic valve structurally normal, three cusps. No stenosis or regurgitation. No subvalvular stenosis or supravalvular stenosis seen. Mitral valve has a ruptured leaflet, in effectively prolapsing the anterior leaflet with severe louise l regurgitation with anteriorly directed jet. Tricuspid valve structurally normal. Moderate TR. Pulmonary valve structurally normal. No stenosis or regurgitation. Left atrial appendage without mass or thrombus. CONCLUSIONS: 1. Reduced systolic function, ejection fraction at 35-40%. 2. Dilated right ventricle with reduced RV systolic function. 3. Biatrial enlargement. 4. Tricuspid aortic valve with normal function. 5. Ruptured chordae with mitral valve prolapse of the anterior leaflet due to the ruptured chordae, with severe mitral regurgitation and anteriorly directed jet with Coanda effect that reaches all the way up to the top of the left atrium. 5. Moderate tricuspid regurgitation.
--- NOTE | 2019-03-11 14:24 | PRG ---
DATE OF SERVICE: 03/11/2019 SUBJECTIVE: He seems to be doing better. He does not have much complaints to offer. OBJECTIVE: VITAL SIGNS: Blood pressure is 111/55, pulse is 100, respiratory rate is 18, O2 saturation is 98% on 2 L by nasal cannula. HEENT: Head is atraumatic and normocephalic. Eyes are PERRLA. Sclerae are nonicteric. Oral mucosa is moist. NECK: Supple. LUNGS: Breath sounds again diminished at both bases with sporadic crackles at both bases. HEART: S1, S2 normal. No S3, no S4. There is a systolic murmur 3/6 at the apex, mostly audible. ABDOMEN: Soft and nontender. EXTREMITIES: No clubbing, cyanosis, or edema. He has plastic cuffs on his hands and ankles. NEUROLOGIC: He follows my commands. He moves his all 4 extremities. LABORATORY DATA: Labs showed sodium of 135, potassium 4.4, chloride 101, CO2 of 26, BUN 27, creatinine 0.92. Glycemia is ranging from 170 to 287, calcium is 9.9. IMPRESSION: 1. Acute congestive heart failure. 2. Coronary artery disease with history of stenting. 3. Diabetes mellitus type 2. 4. Severe mitral regurgitation with prolapse of the anterior leaflet, cardiomyopathy with left ventricular ejection fraction of 35% to 40%. 5. Diabetes mellitus type 2. We are going to restart his metformin today. He is on 1000 mg twice a day according to his schedule prior to this hospitalization. We will continue his aspirin and Synthroid along with beta-arnol and statin, and he should be able to go back to his place tomorrow as per Dr. Young's recommendation. Job ID: [id number]
[2019-03-11] MEDS ORDERED: Furosemide 40 MG/4 ML VIAL SLOW IVP SCH (18:30)
--- NOTE | 2019-03-11 18:32 | PDOC.CTH ---
Cardiology Progress Note - Subjective No new issues. Still requiring oxygen supplementation. - Objective Vital Signs Temp Pulse Pulse Pulse Resp BP BP 03/11/19 16:00 98.3 F 98 16 03/11/19 13:04 100 95 111/55 L 115/67 03/11/19 12:40 97.5 F L 100 18 03/11/19 07:00 97.7 F 93 18 BP Pulse Ox Pulse Ox Pulse Ox 03/11/19 16:00 115/80 98 03/11/19 13:04 97 95 03/11/19 12:40 112/66 98 03/11/19 07:00 119/73 98 Weight 222 lb 9.6 oz 03/10/19 03/11/19 03/12/19 06:59 06:59 06:59 Intake Total 549 262 7925 Output Total 1050 900 500 Balance -210 20 950 - Physical Examination General/Neuro: alert & oriented x3, NAD Neck: no JVD present Lungs: CTA, unlabored respirations Heart: RRR Abdomen: NT/ND Extremities: + edema B (trace) - Telemetry Telemetry Rhythm: NSR - Labs Result Diagrams: 03/09/19 11:46 03/11/19 04:47 Troponin/CKMB CK-MB (CK-2) 5.3 ng/mL (0-6.6) 03/05/19 15:15 Troponin I 0.042 ng/mL (< 0.028) H 03/05/19 21:21 - Assessment/Plan 1. Acute on chronic systolic heart failure. 2. Severe MR 3. HTN 4. CAD, stable no ACS. PLAN: - Aortic valve is only sclerotic without stenosis. Gradients seen were actually anteriorly directed jet of severe MR. He has a ruptured chordae and prolapse of the mitral leaflet leading to anteriorly directed jet of MR. - WIll gove on dose IV lasix today and PO maintenance tomorrow. - Continue other home meds. - Home tomorrow if he remains stable.
[2019-03-11] MEDS: Pravastatin Sodium 40 MG TAB PO SCH (20:09)
[2019-03-12 05:23] LABS: Anion Gap 13 mmol/L (10-20); BUN (Urea Nitrogen) 26 mg/dL (8.4-25.7); Calc. Creatinine Clearance 95 mL/min (70-130); Calcium 10.5 mg/dL (7.8-10.44); Carbon Dioxide 28 mmol/L (23-31); Chloride 99 mmol/L (98-107); Estimated GFR-MDRD 78; Glucose 158 mg/dL (83-110); Potassium 4.2 mmol/L (3.5-5.1); Sodium 136 mmol/L (136-145)
[2019-03-12] MEDS: Levothyroxine 175 MCG TAB PO SCH (05:28)
[2019-03-12] MEDS: Acetaminophen 325 MG TAB PO PRN ×2 (05:31→18:07)
[2019-03-12] MEDS: glipiZIDE 10 MG TAB PO SCH ×2 (08:56→18:01)
[2019-03-12] MEDS: Furosemide 40 MG TAB PO SCH (08:56)
[2019-03-12] MEDS: Famotidine 20 MG TAB PO SCH ×2 (08:57→20:04)
[2019-03-12] MEDS: Aspirin Chewable 81 MG TAB PO SCH (08:57)
[2019-03-12] MEDS: Metoprolol Tartrate 25 MG TAB PO SCH ×2 (08:57→20:04)
[2019-03-12] MEDS: guaiFENesin ER 600 MG TAB PO SCH ×2 (08:57→20:04)
[2019-03-12] MEDS: NPH, Human Insulin Isophane 300 UNIT/3 ML VIAL SC SCH ×2 (08:58→21:34)
[2019-03-12] MEDS: HumaLOG 300 UNITS/3 ML VIAL SC PRN ×2 (11:20→18:01)
--- NOTE | 2019-03-12 18:44 | PDOC.CTH ---
Cardiology Progress Note - Subjective Breathing back to baseline. No new CV issues. - Objective Vital Signs Temp Pulse Resp BP BP Pulse Ox 03/12/19 15:45 98.5 F 97 16 120/59 L 95 03/12/19 11:36 96 18 115/60 03/12/19 11:34 98.7 F 93 16 92/54 L 95 03/12/19 08:03 97.4 F L 108 H 18 120/75 96 Weight 217 lb 6.4 oz 03/11/19 03/12/19 03/13/19 06:59 06:59 06:59 Intake Total 920 2050 Output Total 900 2100 800 Balance 20 -50 -800 - Physical Examination General/Neuro: alert & oriented x3, NAD Neck: no JVD present Lungs: CTA, unlabored respirations Heart: RRR Abdomen: NT/ND Extremities: other: (No edema.) - Telemetry Telemetry Rhythm: NSR - Labs Result Diagrams: 03/09/19 11:46 03/12/19 04:34 Troponin/CKMB CK-MB (CK-2) 5.3 ng/mL (0-6.6) 03/05/19 15:15 Troponin I 0.042 ng/mL (< 0.028) H 03/05/19 21:21 - Assessment/Plan 1. Acute on chronic systolic heart failure. 2. Severe MR 3. HTN 4. CAD, stable no ACS. PLAN: - PO lasix. - Continue other home meds. - Home anytime from cardiac perspective.
[2019-03-12] MEDS: Pravastatin Sodium 40 MG TAB PO SCH (20:04)
--- NOTE | 2019-03-12 20:41 | PRG ---
DATE OF SERVICE: 03/12/2019 SUBJECTIVE: The patient is a 74-year-old male with hypertension; diabetes; coronary artery disease, status post stent placement, who was brought in from the retirement with shortness of breath. His workup was consistent with congestive heart failure exacerbation. He was started on IV diuretics. The patient was evaluated by Cardiology, Dr. Young. Echocardiogram showed ejection fraction of 50% to 55% with 1/3 diastolic dysfunction, [id number] aortic valve stenosis. He underwent a transesophageal echocardiogram, that showed ejection fraction of 35% to 40% with ruptured chordae with mitral valve prolapse of the anterior leaflet due to ruptured chordae with severe mitral regurgitation. Aortic valve was normal without any stenosis. Earlier today, the patient had a near syncopal episode while he was trying to urinate. No loss of consciousness reported. There were no significant injuries reported. At this time, he denies any headache, double vision, blurring of vision, or facial asymmetry. OBJECTIVE: VITAL SIGNS: Temperature 98.5, pulse rate of 97, respirations of 16 , blood pressure 120/59, O2 saturation 95% on room air. CURRENT MEDICATIONS: Reviewed. The patient is on: 1. Aspirin. 2. Tegretol. 3. Lasix p.o. 4. Glipizide. 5. Lisinopril. 6. NPH 16 units b.i.d. 7. Metoprolol 12.5 b.i.d. PHYSICAL EXAMINATION: GENERAL: A 74-year-old male, in no apparent distress. LUNGS: Show diminished air entry at bilateral bases with scattered rhonchi. HEART: S1 and S2 present. Regular rate and rhythm. No rubs or gallops. ABDOMEN: Soft. Bowel sounds present. EXTREMITIES: No calf tenderness. NEUROLOGIC: Grossly nonfocal. Power was 5/5 in all extremities. LABORATORY FINDINGS: Sodium 136, potassium 4.2, chloride 99, bicarb 28, BUN 26, creatinine 0.94. Vitamin D was 5.0. Troponin maximum was 0.056. BNP 834. Telemetry monitoring by my review showed sinus rhythm. Chest x-ray by my review on admission showed mild pulmonary vascular congestion. IMPRESSION: 1. Bekpp-il-dascsec systolic heart failure exacerbation, ACC stage C. 2. Severe mitral regurgitation secondary to ruptured chordae. 3. Elevated troponin secondary to demand ischemia/type 2 myocardial infarction. 4. Coronary artery disease. 5. Vitamin D deficiency. 6. Obesity with BMI of 30.3. 7. Chronic kidney disease, stage 2. 8. Moderate tricuspid regurgitation. 9. Diabetes mellitus, type 2. 10. Gastroesophageal reflux disease. 11. Generalized weakness. 12. Urinary retention. 13. Hyperlipidemia. PLAN: Green catheter has been discontinued today. Postvoid residual was around 30 mL. We will continue to monitor. We will consult walking program. The patient will be discharged in a.m., after overnight monitoring if okay with Cardiology. We will continue Lasix oral. We will continue current dose of NPH. We will recheck labs in a.m. Continue fluid restriction. Replace vitamin D. Plan was discussed with the patient. He stated understanding. Job ID: [id number] MTDD
[2019-03-13] MEDS: Levothyroxine 175 MCG TAB PO SCH (05:06)
[2019-03-13 05:09] LABS: Hemoglobin 14.3 g/dL (14.0-18.0); Platelet Count 337 thou/uL (130-400)
[2019-03-13 05:29] LABS: Anion Gap 14 mmol/L (10-20); BUN (Urea Nitrogen) 27 mg/dL (8.4-25.7); Calc. Creatinine Clearance 97 mL/min (70-130); Calcium 10.1 mg/dL (7.8-10.44); Carbon Dioxide 26 mmol/L (23-31); Chloride 99 mmol/L (98-107); Estimated GFR-MDRD 82; Glucose 116 mg/dL (83-110); Magnesium 1.9 mg/dL (1.6-2.6); Potassium 3.9 mmol/L (3.5-5.1); Sodium 135 mmol/L (136-145)
[2019-03-13] MEDS: Furosemide 40 MG TAB PO SCH (08:44)
[2019-03-13] MEDS: Calcium Carbonate + Vit D 1 TAB PO SCH ×2 (08:44→17:23)
[2019-03-13] MEDS: Metoprolol Tartrate 25 MG TAB PO SCH (08:44)
[2019-03-13] MEDS: glipiZIDE 10 MG TAB PO SCH ×2 (08:44→17:30)
[2019-03-13] MEDS: Aspirin Chewable 81 MG TAB PO SCH (08:44)
[2019-03-13] MEDS: Famotidine 20 MG TAB PO SCH (08:45)
[2019-03-13] MEDS: guaiFENesin ER 600 MG TAB PO SCH (08:46)
[2019-03-13] MEDS ORDERED: Lisinopril 2.5 MG TAB PO SCH (09:00)
[2019-03-13] MEDS: NPH, Human Insulin Isophane 300 UNIT/3 ML VIAL SC SCH (09:14)
[2019-03-13] MEDS: HumaLOG 300 UNITS/3 ML VIAL SC PRN (11:26)
[2019-03-13 16:33] VITALS: BP 132/74; TEMP 98.2
--- NOTE | 2019-03-14 08:01 | DIS ---
DATE OF ADMISSION: 03/05/2019 DATE OF DISCHARGE: 03/13/2019 DISCHARGE DISPOSITION: The patient is an inmate. A basic metabolic profile after 1 week is recommended. Primary care physician advised to follow. The patient was advised to follow up with the staff educator at [facility]. The patient was seen and examined on the day of discharge. Denies any new complaints. No chest pain, shortness of breath, or palpitations reported. DISCHARGE MEDICATIONS: 1. Carvedilol 3.125 mg b.i.d. 2. Lisinopril 1.25 mg daily. 3. Multivitamin one tablet daily. 4. Pravastatin 40 mg nightly. 5. Metformin 1000 mg b.i.d. 6. Levothyroxine 175 mcg daily. 7. NPH 7 units at bedtime with regular insulin sliding scale. 8. Glipizide 10 mg b.i.d. 9. Lasix 20 mg b.i.d. 10. Carbamazepine 300 mg daily. 11. Aspirin 81 mg daily. 12. Vitamin B12 1000 mcg every 30 days. 13. Calcium with vitamin D daily. 14. Ergocalciferol 1.25 mg every 7 days. The patient was extensively counseled on congestive heart failure. INPATIENT TOP STOP ATTACHER: Cardiology, Dr. Young. DIAGNOSTIC TESTS: Echocardiogram showed left ventricular ejection fraction of 50% to 55% with grade 1 of 3 diastolic dysfunction with questionable aortic valve stenosis. He underwent a transesophageal echocardiogram on March 10, 2019, that showed normal aortic valve. Ejection fraction was 35% to 40% with dilated right ventricle and ruptured chordae with mitral valve prolapse of the anterior leaflet due to ruptured chordae with severe mitral regurgitation. He also had moderate tricuspid regurgitation. BRIEF HOSPITAL COURSE: The patient is a 74-year-old male with cardiomyopathy, hypertension, diabetes mellitus type 2, coronary artery disease status post stent, presented to the hospital with shortness of breath on March 06, 2019. The patient was admitted by Dr. Stark, who followed the patient until the March 11. He was evaluated by Cardiology. His workup was consistent with congestive heart failure exacerbation. His weight on admission was 251 pounds, that improved to 216 pounds. His workup was consistent with severe mitral regurgitation due to ruptured chordae. He was extensively counseled on congestive heart failure. Lasix has been changed to oral. Green catheter was removed yesterday. He has been urinating well. He needs to be on 2 L fluid restriction. He was advised to follow up with Urology at [facility]. FINAL DIAGNOSES: 1. Acute on chronic systolic heart failure exacerbation. 2. Severe mitral regurgitation due to ruptured chordae. 3. Moderate tricuspid regurgitation. 4. Type 2 myocardial infarction present on admission (due to demand ischemia). 5. Coronary artery disease status post stent placement. 6. Vitamin D deficiency. His vitamin D level was 5.0. 7. Obesity with a body mass index of 30.3. 8. Chronic kidney disease, stage 2. 9. Diabetes mellitus type 2. 10. Gastroesophageal reflux disease. 11. Urinary retention, requiring Green catheter. Please note that Green catheter was removed yesterday. 12. Hyperlipidemia. TIME SPENT WITH PATIENT: Total time coordinating the discharge with this patient was 36 minutes. Job ID: [id number]
[2019-03-19] MEDS ORDERED: Ergocalciferol 1.25 MG(50,000 UNITS) CAP PO SCH (09:00)
== END 2019-03-13 19:30 | DRG 280 ==
LOC: ERS 14:31 → 2NO 18:52 → OBSVTOIN 18:52
PROVIDERS: ADMIT Internal Medicine; ATTEND Internal Medicine
PROC: B24BZZ4 Ultrasonography of Heart with Aorta, Transesophageal (ICD-10-PCS; principal; 2019-03-10)
DX: I13.0 Hypertensive heart and chronic kidney disease with heart failure and stage 1 through stage 4 chronic kidney disease, or unspecified chronic kidney disease (principal); I21.A1 Myocardial infarction type 2; I50.23 Acute on chronic systolic (congestive) heart failure; E11.22 Type 2 diabetes mellitus with diabetic chronic kidney disease; E78.5 Hyperlipidemia, unspecified; E03.9 Hypothyroidism, unspecified; I25.10 Atherosclerotic heart disease of native coronary artery without angina pectoris; K21.9 Gastro-esophageal reflux disease without esophagitis; M19.90 Unspecified osteoarthritis, unspecified site; E53.8 Deficiency of other specified B group vitamins; I08.1 Rheumatic disorders of both mitral and tricuspid valves; E66.9 Obesity, unspecified; N18.2 Chronic kidney disease, stage 2 (mild); R33.9 Retention of urine, unspecified; Z68.30 Body mass index [BMI] 30.0-30.9, adult; Z95.5 Presence of coronary angioplasty implant and graft; Z90.49 Acquired absence of other specified parts of digestive tract; Z79.82 Long term (current) use of aspirin; Z79.4 Long term (current) use of insulin; Z79.899 Other long term (current) drug therapy
CPT/HCPCS: 36415; 36416; 71045; 80048; 80053; 82306; 82550; 82553; 83690; 83735; 83880; 84443; 84484; 85014; 85018; 85025; 85049; 90471; 90670; 93005; 93306; 93312; 93798; G0009; J1815; J1940; J2704

== ENCOUNTER 2019-10-05 18:54 | Emergency (ER) | payer OTHER ==
--- NOTE | 2019-10-05 20:12 | RAD ---
XR Chest 1 View Portable HISTORY: Dizziness COMPARISON: 03/05/2019 FINDINGS: The heart size is normal. There is continued elevation the right hemidiaphragm. The lungs a re without focal areas of consolidation, pneumothorax or pleural effusions. IMPRESSION: No radiographic evidence of acute cardiopulmonary process.
[2019-10-05 20:25] LABS: #Basophils 0.1 thou/uL (0.0-0.2); #Eosinphils 0.7 thou/uL (0.0-0.7); #Lymphocytes 1.6 thou/uL (1.20-3.40); #Monocytes 0.7 thou/uL (0.11-0.59); #Neutrophils 6.1 thou/uL (1.40-6.50); %Basophils 1.1 % (0.0-1.0); %Lymphocytes 17.2 % (21.0-51.0); %Monocytes 7.5 % (0.0-10.0); %Neutrophils 66.3 % (42.0-75.0); Hemoglobin 11.8 g/dL (14.0-18.0); Mean Corpuscular HGB CONC 34.3 g/dL (32.0-36.0); Mean Corpuscular Hemoglobin 33.2 pg (27.0-31.0); Mean Corpuscular Volume 96.9 fL (78.0-98.0); Mean Platelet Volume 7.6 fL (7.4-10.4); Platelet Count 302 thou/uL (130-400); RBC Distribution Width 13.8 % (11.5-14.5); Red Blood Cell (RBC) Count 3.55 mill/uL (4.70-6.10); White Blood Cell (WBC) Count 9.1 thou/uL (4.8-10.8)
[2019-10-05 20:49] LABS: ALT (SGPT) 42 U/L (8-55); AST (SGOT) 34 U/L (5-34); Albumin 3.8 g/dL (3.4-4.8); Alkaline Phosphatase 82 U/L (40-110); Anion Gap 12 mmol/L (10-20); BUN (Urea Nitrogen) 18 mg/dL (8.4-25.7); Bilirubin, Total 0.5 mg/dL (0.2-1.2); Calc. Creatinine Clearance 0 mL/min (70-130); Calcium 8.9 mg/dL (7.8-10.44); Carbon Dioxide 24 mmol/L (23-31); Chloride 103 mmol/L (98-107); Estimated GFR-MDRD 63; Globulin 2.5 g/dL (2.4-3.5); Glucose 152 mg/dL (83-110); Potassium 4.8 mmol/L (3.5-5.1); Protein, Total 6.3 g/dL (5.8-8.1); Sodium 134 mmol/L (136-145)
[2019-10-05] MEDS ORDERED: Ketorolac Tromethamine 30 MG/ML VIAL ONE (21:09)
[2019-10-05] MEDS ORDERED: Meclizine HCl 25 MG TAB ONE ×2 (21:09→21:11)
[2019-10-05 21:22] LABS: CKMB 8.4 ng/mL (0-6.6)
[2019-10-05] MEDS ORDERED: diphenhydrAMINE 25 MG CAP ONE (22:13)
[2019-10-05] MEDS ORDERED: Ondansetron ODT 4 MG TAB ONE ×2 (22:16→22:57)
== END 2019-10-06 00:25 ==
LOC: ERS 18:54 → EEVIPCON 18:54 → ERS 10-06 00:25
DX: I10 Essential (primary) hypertension (principal); R11.0 Nausea; K21.9 Gastro-esophageal reflux disease without esophagitis; I25.10 Atherosclerotic heart disease of native coronary artery without angina pectoris; E03.9 Hypothyroidism, unspecified; M19.90 Unspecified osteoarthritis, unspecified site; E11.9 Type 2 diabetes mellitus without complications; D51.9 Vitamin B12 deficiency anemia, unspecified; Z79.4 Long term (current) use of insulin; Z79.82 Long term (current) use of aspirin; Z79.899 Other long term (current) drug therapy
CPT/HCPCS: 71045; 80053; 82553; 83880; 84484; 85025; 93005; 96372; J1885; J8597; Q0162; Q0163

== ENCOUNTER 2019-10-12 15:00 | Inpatient (IN) | payer OTHER ==
[~2019-10-12 15:00] MED LIST: Iopamidol-370 76% 500 ML 1 ML ONE
[2019-10-12 16:00] LABS: #Eosinphils 0.1 thou/uL (0.0-0.7); #Lymphocytes 0.7 thou/uL (1.20-3.40); #Monocytes 0.9 thou/uL (0.11-0.59); #Neutrophils 14.4 thou/uL (1.40-6.50); %Basophils 0.3 % (0.0-1.0); %Eosinophils 0.9 % (0.0-10.0); %Lymphocytes 4.2 % (21.0-51.0); %Monocytes 5.8 % (0.0-10.0); %Neutrophils 88.8 % (42.0-75.0); Hemoglobin 11.7 g/dL (14.0-18.0); Mean Corpuscular Hemoglobin 32.5 pg (27.0-31.0); Mean Corpuscular Volume 98.6 fL (78.0-98.0); Mean Platelet Volume 7.3 fL (7.4-10.4); Platelet Count 343 thou/uL (130-400); RBC Distribution Width 13.8 % (11.5-14.5); White Blood Cell (WBC) Count 16.2 thou/uL (4.8-10.8)
[2019-10-12 16:22] LABS: BUN (Urea Nitrogen) 22 mg/dL (8.4-25.7); CK (CPK) 150 U/L (30-200); Calc. Creatinine Clearance 0 mL/min (70-130); Calcium 9.2 mg/dL (7.8-10.44); Carbon Dioxide 23 mmol/L (23-31); Estimated GFR-MDRD 49; Globulin 3.2 g/dL (2.4-3.5); Glucose 225 mg/dL (83-110); Potassium 4.8 mmol/L (3.5-5.1); Protein, Total 6.7 g/dL (5.8-8.1); Sodium 135 mmol/L (136-145)
--- NOTE | 2019-10-12 16:31 | ULT ---
EXAM: Bilateral lower extremity venous ultrasound HISTORY: Bilateral lower extremity pain and swelling. COMPARISON: None TECHNIQUE: Multiplanar grayscale and color Doppler images were obtained in a bilateral lower extremit y venous ultrasound. Spectral analysis of the Doppler waveforms were performed. FINDINGS: The bilateral common femoral vein, profunda femoral veins, superficial femoral veins, and p opliteal veins are normal in appearance without visible thrombus. These vessels demonstrate normal compression, flow, and augmentation. The bilateral posterior tibial veins, profunda femoral veins and greater saphenous veins are patent w ithout evidence of DVT. Bilateral lower extremity soft tissue edema. IMPRESSION: 1. No evidence of DVT in the left or right lower extremity. 2. Bilateral lower extremity soft tissue edema.
[2019-10-12 16:47] LABS: CKMB 8.7 ng/mL (0-6.6)
[2019-10-12 16:59] LABS: Albumin 3.5 g/dL (3.4-4.8)
[2019-10-12 17:00] LABS: Chloride 102 mmol/L (98-107)
--- NOTE | 2019-10-12 17:00 | RAD ---
Exam: Chest one view HISTORY:Dyspnea Comparison: 10/05/2019 FINDINGS: Cardiac silhouette: Normal Aorta: Unremarkable Pulmonary vessels: Normal Costophrenic angles: Clear LUNGS: Diminished lung volumes. Probable right lower lobe atelectasis. Pneumothorax: None Osseous abnormalities: None IMPRESSION: Diminished lung volumes. Right lower lobe atelectasis.
--- NOTE | 2019-10-12 17:01 | CT ---
Exam: CT angiogram of the chest HISTORY: Dyspnea COMPARISON: None TECHNIQUE: CT angiogram of the chest is performed in the axial plane. Three-dimensional reformatted i mages are submitted for interpretation FINDINGS: Mediastinum: No mass, lymphadenopathy or hematoma. HEART: Normal size. No significant pericardial fluid. There are coronary artery calcifications. Aorta: No aneurysm or dissection Upper solid abdominal viscera: No abnormality enhancement. Trachea and central bronchi: Patent Pleural spaces: Small to moderate right-sided pleural effusion. Lung parenchyma: Groundglass opacities, scattered throughout the lung parenchyma. There is more focal linear opacification in the middle lobe and right lower lobe which may represent areas of atelectasis. Infiltrate cannot be entirely excluded. Pneumothorax: None Osseous structures: No lytic or blastic lesions Soft tissues: There is evidence of mild anasarca. There is increased density in the right and to less er extent left breast with coarse calcifications. Findings may represent gynecomastia. Mammogram is recommended for confirmation. Pulmonary arteries: Adequate contrast opacification pulmonary arterial system to the level of segment al arteries. No filling defect to suggest pulmonary embolism IMPRESSION: 1. No evidence of pulmonary artery embolism to the level of the segmental arteries. 2. Right middle lobe and lower lobe atelectasis. Right-sided pleural effusion. 3. Probable gynecomastia with coarse calcifications in the right and to lesser extent left breast. Co nfirmation of gynecomastia with a nonemergent mammogram. Transcribed Date/Time: 10/12/2019 5:26 PM
[2019-10-12 17:03] LABS: Anion Gap 17 mmol/L (10-20); Bilirubin, Total 0.4 mg/dL (0.2-1.2)
[2019-10-12 17:04] LABS: Alkaline Phosphatase 99 U/L (40-110)
[2019-10-12 17:06] LABS: AST (SGOT) 20 U/L (5-34)
[2019-10-12 17:07] LABS: ALT (SGPT) 26 U/L (8-55)
--- NOTE | 2019-10-12 17:55 | PDOC.FPRHP ---
- History of Present Illness Chief Complaint: B leg cramping History of Present Illness: 74-year-old male with a past medical history of type two diabetes, hypertension , mitral valve prolapse with anterior leaflet insufficiency. Pt c/o 2 week hx of LE pain, crampy in character, at first intermittent, and became constant today prompting him to come to ER from [facility]. Pt denies CP, palpitations, Loer extremity edema. Patient admits having orthopnea when laying flat to sleep. Denies PND. Patient states he is chronically short of breath and he has no increased shortness of breath than normal. Pt states he has gained about 10 pounds over the last month. He drinks about 4, 32 oz water daily. Has noticed increase in thirst and urination. Pt states today he has been unable to urinate because he has not had much to drink today however. Denies dysuria or hematuria. Pt was never followed up with cardiology after being worked up for heart failure in February. He had a FREDDY, which shoed ruptured chordae on anterior leaflet of MV, with severe MR. Dilated RV with decreased RV function. EF 35-40%. CXr today: RLL atelectasis BNP 570 Trop 0.058 D-dimer 2.49, CTA neg for PE. R sided pleural effision. Gynocomastia present, recommending f/u mammogram. Cr 1.41, up from baseline. wbc 16.2 glucose 225 - Allergies/Adverse Reactions Allergies Allergy/AdvReac Type Severity Reaction Status Date / Time No Known Allergies Allergy Verified 10/12/19 22:31 - Home Medications Medication Instructions Recorded Confirmed Type Aspirin [Ecotrin Low Strength] 81 mg PO DAILY 03/06/19 10/12/19 History Furosemide [Lasix] 20 mg PO BID 03/06/19 10/12/19 History Insulin NPH Human Isophane 10 unit SC BID-AC 03/06/19 10/12/19 History [NovoLIN N] Insulin Regular, Human [Novolin R] 0 - 100 unit SQ ACHS 03/06/19 10/12/19 History Levothyroxine Sodium [Synthroid] 0.025 mcg PO DAILY 03/06/19 10/12/19 History carBAMazepine [Carbamazepine ER] 600 mg PO DAILY 03/06/19 10/12/19 History metFORMIN [Glucophage] 1,000 mg PO BID-WM 03/06/19 10/12/19 History Acetaminophen [Tylenol] 650 mg PO TID 10/12/19 10/12/19 History Loratadine [Claritin] 10 mg PO DAILY PRN 10/12/19 10/12/19 History Meclizine HCl [Antivert] 25 mg PO BID PRN 10/12/19 10/12/19 History Naphazoline/Hpm/Ps80/Zinc Sulf 1 - 2 drop EA EYE QID PRN 10/12/19 10/12/19 History [Clear Eyes Complete Eye Drops] Naproxen [Naprosyn] 500 mg PO BID 10/12/19 10/12/19 History diphenhydrAMINE [Benadryl] 25 mg PO TID PRN 10/12/19 10/12/19 History - History PMHx: HTN, DM II, MV prolapse with severe MV regurgitation causing R sided HF. FHx: mother: form CVA, father: from CVA, 2 sons that via drug overdose. Social: lives in [facility]. Denies current tobacco use, etoh or illicit drug use. States he smoked about 5 years when younger. - Review of Systems General: reports: weight/appetite/sleep changes (increase weight recently). denies: fever/chills, night sweats Eyes: denies: eye pain, vision changes Respiratory: reports: shortness of breath, exercise intolerance Cardiovascular: reports: orthopnea. denies: chest pain, palpitation, edema, paroxysmal nocturnal dyspnea Gastrointestinal: denies: nausea, vomiting, diarrhea, constipation, abdominal pain Genitourinary: reports: polyuria. denies: incontinence, dysuria, discharge Skin: denies: rashes Musculoskeletal: reports: pain, tenderness, stiffness. denies: swelling, arthritis/arthralgias Neurological: denies: numbness, syncope, seizure, weakness - Vital signs BP: 135/85 HR: 98 RR: 16 Tmax: 97.3 Pox: 100% on ra Wt: 119 kg - Physical Exam Constitutional: NAD, awake, alert and oriented HEENT: normocephalic and atraumatic, PERRLA, EOMI, conjunctiva clear, no scleral icterus, grossly normal vision, grossly normal hearing, MMM, oropharynx clear Neck: supple, FROM, trachea midline -Neck: JVD, with + hepatojugular reflex Chest: no-tender to palpation, no lesions Heart: RRR, normal S1/S2, no murmurs/rubs/gallops, pulses present -Heart: BLE pitting 2 + edema Lungs: no respiratory distress, good air movement -Lungs: Bibasilar crackles Abdomen: soft, non-tender, bowel sounds present Musculoskeletal: normal structure, normal tone, ROM grossly normal Neurological: no focal deficit, CN II-XII intact, normal sensation Skin: no rash/lesions, good turgor, capillary refill <2 seconds, no jaundice Heme/Lymphatic: no unusual bruising or bleeding, no purpura Psychiatric: normal mood and affect FMR H&P: Results - Labs Result Diagrams: 10/12/19 15:44 10/12/19 15:44 Lab results: WBC 16.2 thou/uL (4.8-10.8) H 10/12/19 15:44 Hgb 11.7 g/dL (14.0-18.0) L 10/12/19 15:44 Hct 35.5 % (42.0-52.0) L 10/12/19 15:44 MCV 98.6 fL (78.0-98.0) H 10/12/19 15:44 Plt Count 343 thou/uL (130-400) 10/12/19 15:44 Neutrophils % 88.8 % (42.0-75.0) H 10/12/19 15:44 Sodium 135 mmol/L (136-145) L 10/12/19 15:44 Potassium 4.8 mmol/L (3.5-5.1) 10/12/19 15:44 Chloride 102 mmol/L (98-107) 10/12/19 15:44 Carbon Dioxide 23 mmol/L (23-31) 10/12/19 15:44 BUN 22 mg/dL (8.4-25.7) 10/12/19 15:44 Creatinine 1.41 mg/dL (0.7-1.3) H 10/12/19 15:44 Glucose 225 mg/dL (83-110) H 10/12/19 15:44 Calcium 9.2 mg/dL (7.8-10.44) 10/12/19 15:44 Total Bilirubin 0.4 mg/dL (0.2-1.2) 10/12/19 15:44 AST 20 U/L (5-34) 10/12/19 15:44 ALT 26 U/L (8-55) 10/12/19 15:44 Alkaline Phosphatase 99 U/L (40-110) 10/12/19 15:44 Creatine Kinase 150 U/L (30-200) 10/12/19 15:44 CK-MB (CK-2) 8.7 ng/mL (0-6.6) H* 10/12/19 15:44 B-Natriuretic Peptide 570.4 pg/mL (0-100) H 10/12/19 15:43 Serum Total Protein 6.7 g/dL (5.8-8.1) 10/12/19 15:44 Albumin 3.5 g/dL (3.4-4.8) 10/12/19 15:44 - Radiology Interpretation Chest x-ray Status: image reviewed by me (RLL atelectasis), report reviewed by me CT scan - chest Status: report reviewed by me (no PE. R sided pleura effusion) FMR H&P: A/P - Problem List (1) Mitral valve anterior leaflet prolapse Current Visit: Yes Status: Acute Code(s): I34.1 - NONRHEUMATIC MITRAL (VALVE ) PROLAPSE (2) HTN (hypertension) Current Visit: Yes Status: Acute Code(s): I10 - ESSENTIAL (PRIMARY) HYPERTENSION (3) DM II (diabetes mellitus, type II), controlled Current Visit: Yes Status: Acute Code(s): E11.9 - TYPE 2 DIABETES MELLITUS WITHOUT COMPLICATIONS (4) CHF (congestive heart failure) Current Visit: Yes Status: Acute Code(s): I50.9 - HEART FAILURE, UNSPECIFIED (5) Macrocytic anemia Current Visit: Yes Status: Acute Code(s): D53.9 - NUTRITIONAL ANEMIA, UNSPECIFIED - Plan 74 y/o male admitted for further treatment and workup of acute CHF exacerbation 1. Acute CHF exacerbation, HFrEF - FREDDY in 02/2019: ruptured chordae of anterior leaflet MV prolapse with severe MR. biatrial enlargement, RV dilation with decreased RV function. EF 35-40% - ordered TTE - CXR RLL atelectais - CTA chest: R sided pleural effusion, no PE. D-dimer 2.49 - BNP 570 - Fluid restrict <1800 mL daily, daily weights, strict I/O. - IV 40 mg lasix BID 2. Indeterminate troponin levels - Trop 0.058, trending X2 - EKG: Sinus, rate 99, no ST elevations or depressions. - Most likely 2/2 volume overload and stretching of myocytes 3. FABIAN - Cr 1.41, up from baseline. - Cr 1.13 last week. - given 40 IV lasix, will monitor QAM for improvement. 4. R sided Pleural effusion - Most likely from R sided heart strain - will repeat c-xray in AM to monitor 5. hx of DM II - random Glucose 225 - ordered A1C - continue metformin 1000 mg BID, SSI, Qachs accuchecks. 6. Hx of HTN - pt only on lasix Po 20 mg BID - will monitor and optimize therapy. BETSY-I, bb 7. Hx of hypothyroidism - continuehome medication of levothyroxine 25 mcg daily 8. Macrocytic anemia - Iron, ITBC, ferritin ordered - B12, folate ordered Code status: full code diet: HH, CC, <1800 mL daily fluid restriction dvt ppx: lovenox Dispo: stable, admit to tele inpt. FMR H&P: Upper Level - Plan Date/Time: 10/12/19 0805 PCP: Olamide HPI: 69 yo M with chief complaint of leg cramps being admitted for CHF exacerbation. PMH includes CAD, HTN, OA, DM2, Anemia, right sided HF. Leg cramps have been going on for months, have gotten worse over the last few weeks. He denies CP or palpitations. He does get short of breath lying flat. Drinks 4+ 32 oz. bottles of water per day. Denies fevers, chills, or sweats. Does not know if he saw any cardiologists after his last admission to [facility]. REVIEW OF SYSTEMS: Gen: no fever, chills, or sweats Neuro: denies headache Eyes: no visual changes ENT: no hearing changes, no sore throat, no congestion Resp: see hpi Card: denies CP, palpitations GI: denies abd pain, N/V/D Skin: no rash, no erythema PHYSICAL EXAMINATION: General: NAD, alert and oriented x3 HEENT: PERRLA, EOMI, normal sclera, oropharynx without erythema or exudate Neck: Supple. Full ROM. Heart/Cardiovascular System: RRR, Cap refill < 3 seconds, 2/6 diastolic murmur Lungs/Respiratory System: decreased sounds at bases, short of breath at the end of a sentence, not in resp distress, no posturing Abdomen/Gastro-Intestinal System: normal bowel sounds, nontender Extremities: Warm extremities. +3 edema to mid calf Neuro: No gross deficits appreciated. CN 2-12 grossly intact Psychiatry: Awake, Alert and cooperative with exam Skin: no rashes, ulcers Musculoskeletal: Full ROM A/P: # HFrEF Exacerbation, Severe mitral valve prolapse, RV reduced fxn - FREDDY march 14 showed EF 35-40%, ruptured chordae w/ severe mitral valve prolapse - Discharged in february with wt 216lbs, wt today 250lbs - Not adhering to fluid rest, unknown outpt followup - CTA neg, Doppler neg bilatal, dimer 2.2, BNP 570 - TTE ordered, Lasix 40mg BID, Cr 1.41 - Consult Cardiology in AM, appreciate recs - trend trops # FABIAN - Cr 1.41, baseline ~0.9 - Cortez diuresis # HTN, DM2, hypothyroidism - Home meds # Chronic Anemia - Hgb 11.7, iron studies # mild R pleural effusion, atelectasis - Repeat CXR in AM # Gynectomastia - Noted on CTA, consider outpt mammo Fluids: tko Code status: full PPx: lovenox Dispo: inpt, will likely take afew days of diuresis
[2019-10-12] MEDS ORDERED: Furosemide 40 MG/4 ML VIAL ONE (18:46)
[2019-10-12] MEDS ORDERED: Dextrose 5% in Water 1,000 ML IV PRN (19:47)
[2019-10-12] MEDS ORDERED: Dextrose 50% Abboject 50 ML SYRINGE SLOW IVP PRN (19:47)
[2019-10-12 20:12] LABS: Troponin I 0.045 ng/mL (< 0.028)
[2019-10-12 20:30] LABS: Hemoglobin A1c 8.6 % (4.0-6.0)
[2019-10-12 23:27] LABS: Troponin I 0.046 ng/mL (< 0.028)
[2019-10-13] MEDS ORDERED: diphenhydrAMINE 25 MG CAP PO PRN (00:23)
[2019-10-13] MEDS ORDERED: Loratadine 10 MG TAB PO PRN (00:23)
[2019-10-13] MEDS ORDERED: NAPHAZOLINE EA EYE PRN (00:23)
[2019-10-13] MEDS ORDERED: ZINC SULF EA EYE PRN (00:23)
[2019-10-13] MEDS ORDERED: [UNRECOGNIZED DRUG - OTHER] EA EYE PRN (00:23)
[2019-10-13 00:40] LABS: Amphetamine Not Detected (NotDetected); Barbiturates Screen Not Detected (NotDetected); Benzodiazepine Screen Not Detected (NotDetected); Cocaine Metabolite Screen Not Detected (NotDetected); Medtox Control Line Valid? VALID (VALID); Medtox Reader # READER 4; Methadone Not Detected (NotDetected); Methamphetamine Not Detected (NotDetected); Opiate Screen Not Detected (NotDetected); Oxycodone Screen Not Detected (NotDetected); Phencyclidine (PCP) Not Detected (NotDetected); THC/Cannabinoid Screen Not Detected (NotDetected); Tricyclic Screen Not Detected (NotDetected)
[2019-10-13 01:57] LABS: Iron 10 ug/dL (65-175); Iron Binding Capacity, Total 211 mcg/dL (261-462)
[2019-10-13 04:43] LABS: Ferritin 264.74 ng/mL (22-322)
[2019-10-13 05:11] LABS: Anion Gap 17 mmol/L (10-20); BUN (Urea Nitrogen) 19 mg/dL (8.4-25.7); Calc. Creatinine Clearance 95 mL/min (70-130); Calcium 9.7 mg/dL (7.8-10.44); Carbon Dioxide 21 mmol/L (23-31); Chloride 101 mmol/L (98-107); Estimated GFR-MDRD 64; Glucose 150 mg/dL (83-110); Magnesium 1.8 mg/dL (1.6-2.6); Potassium 4.2 mmol/L (3.5-5.1); Sodium 135 mmol/L (136-145)
[2019-10-13] MEDS: Furosemide 40 MG/4 ML VIAL SLOW IVP SCH ×2 (05:22→13:57)
[2019-10-13 05:38] LABS: Mean Corpuscular HGB CONC 32.4 g/dL (32.0-36.0); Mean Corpuscular Hemoglobin 31.9 pg (27.0-31.0); Mean Corpuscular Volume 98.5 fL (78.0-98.0); Platelet Count 328 thou/uL (130-400); RBC Distribution Width 13.9 % (11.5-14.5); Red Blood Cell (RBC) Count 3.75 mill/uL (4.70-6.10); White Blood Cell (WBC) Count 21.9 thou/uL (4.8-10.8)
[2019-10-13] MEDS ORDERED: Levothyroxine Sodium 25 MCG TAB PO SCH (06:00)
[2019-10-13 06:05] LABS: Band 27 % (5-11); Lymphocytes 4 % (21-51); MDiff Complete? YES; Monocytes 4 % (0-10); Neutrophil 65 % (42-75)
[2019-10-13] MEDS: carBAMazepine SR 300 mg Capsule PO SCH (08:09)
[2019-10-13] MEDS: metFORMIN 500 MG TAB PO SCH ×2 (08:10→17:56)
[2019-10-13] MEDS: Acetaminophen 325 MG TAB PO SCH ×3 (08:10→20:01)
[2019-10-13] MEDS: Naproxen 500 MG TAB PO SCH ×2 (08:12→17:55)
[2019-10-13] MEDS: Aspirin 81 mg Enteric Coated Tablet PO SCH (08:12)
[2019-10-13] MEDS: Enoxaparin Sodium 40 MG/0.4 ML SYRINGE SC SCH (08:12)
[2019-10-13] MEDS: Insulin Regular 300 UNITS/3 ML VIAL SC PRN ×3 (08:14→21:42)
--- NOTE | 2019-10-13 08:26 | PDOC.FM ---
- Subjective Subjective: Pt is a 74 yo male prisoner here for shortness of breath. He remains dyspneic. He started diuresing yesterday. He also subtherapeutic on levothyroxine. He denies diarrhea, fever, hemoptysis, dysuria, hematuria, progressing skin lesions. - Objective Vital Signs & Weight: Vital Signs (12 hours) Temp Pulse Resp BP BP Pulse Ox 10/13/19 03:04 97.6 F 98 20 139/82 96 10/12/19 21:57 97.3 F L 98 16 135/85 100 Weight Weight 119.023 kg I&O: 10/12/19 10/13/19 10/14/19 06:59 06:59 06:59 Output Total 525 Balance -525 Result Diagrams: 10/13/19 03:40 10/13/19 03:40 Phys Exam - Physical Examination Constitutional: NAD HEENT: PERRLA, moist MMs Respiratory: no wheezing Decreased breath sounds on R side Cardiovascular: RRR, no significant murmur Gastrointestinal: soft, non-tender, no distention Musculoskeletal: pulses present 1+ Pitting edema Psychiatric: normal affect, A&O x 3 Skin: cap refill <2 seconds Deviation from normal: skin scratches on legs but no sign of erythema Dx/Plan (1) Hypothyroid Code(s): E03.9 - HYPOTHYROIDISM, UNSPECIFIED Status: Acute (2) Leukocytosis Code(s): D72.829 - ELEVATED WHITE BLOOD CELL COUNT, UNSPECIFIED Status: Acute (3) CHF (congestive heart failure) Code(s): I50.9 - HEART FAILURE, UNSPECIFIED Status: Acute (4) DM II (diabetes mellitus, type II), controlled Code(s): E11.9 - TYPE 2 DIABETES MELLITUS WITHOUT COMPLICATIONS Status: Acute (5) HTN (hypertension) Code(s): I10 - ESSENTIAL (PRIMARY) HYPERTENSION Status: Acute (6) Macrocytic anemia Code(s): D53.9 - NUTRITIONAL ANEMIA, UNSPECIFIED Status: Acute (7) Mitral valve anterior leaflet prolapse Code(s): I34.1 - NONRHEUMATIC MITRAL (VALVE) PROLAPSE Status: Acute - Plan Plan: 74 y/o male admitted for further treatment and workup of acute CHF exacerbation 1. Acute CHF exacerbation, HFrEF - FREDDY in 02/2019: ruptured chordae of anterior leaflet MV prolapse with severe MR. biatrial enlargement, RV dilation with decreased RV function. EF 35-40% - ordered TTE - CXR RLL atelectais - CTA chest: R sided pleural effusion, no PE. D-dimer 2.49 - BNP 570 - Fluid restrict <1800 mL daily, daily weights, strict I/O. - IV 40 mg lasix BID 2. Indeterminate troponin levels - Trop 0.058, trending X2 - EKG: Sinus, rate 99, no ST elevations or depressions. - Most likely 2/2 volume overload and stretching of myocytes 3. FABIAN, Cardiorenal Syndrome - Cr 1.41 -> 1.1 - Cr 1.13 last week. - given 40 IV lasix, will monitor QAM for improvement. 4. R sided Pleural effusion - Most likely from R sided heart strain - will repeat c-xray in AM to monitor 5. hx of DM II - random Glucose 225 - ordered A1C - continue metformin 1000 mg BID, SSI, Qachs accuchecks. 6. Hx of HTN - pt only on lasix Po 20 mg BID - will monitor and optimize therapy. BETSY-I, bb 7. Hx of hypothyroidism Subtherapeutic. - start levothyroxine 125 mcg 8. Macrocytic anemia - Iron, ITBC, ferritin ordered - B12, folate ordered 9. Leukocytosis No signs of infection but WBC 21.9. - will discuss care on rounds Code status: full code diet: HH, CC, <1800 mL daily fluid restriction dvt ppx: lovenox Dispo: stable, admit to tele inpt.
--- NOTE | 2019-10-13 08:28 | RAD ---
TWO VIEWS OF THE CHEST: COMPARISON: 10/12/2019. HISTORY: CHF. FINDINGS: Two views of the chest show an enlarged but stable cardiomediastinal silhouette. Atelectasis is seen in the right lung base. There is no evidence of pleural effusion. IMPRESSION: Cardiomegaly and right basilar atelectasis. POS: [facility]
[2019-10-13 11:38] LABS: Free T4 (Free Thyroxine) Less than 0.40 ng/dL (0.70-1.48)
[2019-10-13] MEDS ORDERED: Azithromycin 250 MG TAB PO SCH (12:30)
--- NOTE | 2019-10-13 13:03 | PRG ---
DATE OF SERVICE: 10/13/2019 ADDENDUM: This as an addendum to the note of Dr. Johny Cheng. Mr. Soto is a 74-year-old man who was noted last February to have flail mitral valve leaflet and significant mitral regurgitation. [facility] with leg cramping, pain as well as some symptoms of orthopnea. He states that he is chronically short of breath. He also states he has gained about 10 pounds in the last month. In the event, he was admitted with changes consistent with mild pulmonary congestion and has responded well to intravenous Lasix. We are repeating his echo to examine again his mitral valve and we will consult Cardiology to determine whether or not surgical intervention will be necessary. Otherwise, we will continue with his heart failure regimen as clinically he has improved somewhat. There was a questionable infiltrate on chest x-ray as well, so we will go ahead and cover him with antibiotics given that his white count is also significantly elevated. Job ID: [id number]
[2019-10-13] MEDS: cefTRIAXone\\ROCEPHIN 1 GM in Sodium Chloride 0.9% 100 ML IVPB SCH (14:02)
[2019-10-13 15:12] LABS: Bacteria/HPF None Seen HPF (None Seen); Bilirubin Negative (Negative); Blood, Urine Negative (Negative); Clarity Clear (Clear); Glucose, Urine (Dipstick) 150 mg/dL (Negative); Leukocyte Negative Leu/uL (Negative); Nitrite Negative (Negative); Protein, Urine (Dipstick) 100 mg/dL (Neg-Trace); RBC/HPF 0-3 HPF (0-3); Squamous Epithelial None Seen HPF (0-3); Urobilinogen 3 mg/dL (Less than 2); WBC/HPF 0-3 HPF (0-3)
--- NOTE | 2019-10-13 16:34 | CON ---
DATE OF CONSULTATION: 10/13/2019 REASON FOR CONSULTATION: Heart failure. HISTORY OF PRESENT ILLNESS: Mr. Soto is a 74-year-old white gentleman, who comes to the hospital, brought in from shelter for shortness of breath and bilateral leg cramping. He has gained about 10 pounds over the last month. He drinks four 32-ounce water bottles daily in shelter. He is having orthopnea, but no PND. He started noticing worsening leg cramps, so he has to be seen, and [facility] He was seen in the hospital back in February of 2019. At that point, he had a transesophageal echo that showed ruptured chordae on his mitral valve with severe anteriorly directed jet of MR. His EF at that time was about 35% to 40%. There was moderate TR at that time. Given his reduced EF, it was thought that he would not be a candidate for repair of the valve; however, he continues to come in for heart failure exacerbations. Currently, he denies any chest pain, tightness, or pressure, only he has shortness of breath. PAST MEDICAL HISTORY: 1. Hypertension. 2. Type 2 diabetes. 3. 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 4. Coronary artery disease with stenting several years back. 5. Osteoarthritis. 6. Vitamin B12. 7. Hypothyroidism. 8. GERD. SURGICAL HISTORY: 1. Appendectomy. 2. Tonsillectomy. 3. Back surgery. 4. Stenting in the past. FAMILY HISTORY: Mother with CVA. Father with CVA. Two sons of drug overdose. SOCIAL HISTORY: Currently in shelter. Denies alcohol, tobacco, or drugs. Former tobacco user, none for a long time. OUTPATIENT MEDICATIONS: Include; 1. Lasix 20 mg b.i.d. 2. Aspirin 81 a day. 3. Insulin Novolin N. 4. Novolin R. 5. Synthroid 25 mcg a day. 6. Carbamazepine 600 mg a day. 7. Metformin 1000 mg b.i.d. 8. Tylenol p.r.n. 9. Loratadine p.r.n. 10. Meclizine. 11. Clear Eyes Complete eye drops p.r.n. 12. Naproxen 500 mg b.i.d. 13. Diphenhydramine 25 mg p.o. t.i.d. REVIEW OF SYSTEMS: A 12-point review of systems was done and was all negative unless stated in the history of present illness. PHYSICAL EXAMINATION: VITAL SIGNS: Temperature 97.5, pulse 95, respiratory rate 20, saturating 95% on room air, and blood pressure 123/60. GENERAL: Awake, alert, and oriented x3. No distress. HEENT: Normocephalic and atraumatic. NECK: Supple. LUNGS: Clear. CARDIOVASCULAR: S1 and S2. There is a holosystolic murmur at the apex. ABDOMEN: Soft. EXTREMITIES: 2+ edema. SKIN: Warm and dry. LABORATORY DATA: Laboratory work was reviewed. CBC with a white count of 16, up to 21; hemoglobin of 12; hematocrit of 37; and platelet count of 328. Coags, D-dimer was elevated. Chemistry with a sodium of 135, potassium 4.8, chloride 102, carbon dioxide of 23, anion gap of 17, BUN of 23, creatinine 1.41, GFR of 49, glucose of 225, calcium 9.2. CK-MB of 8.7. Troponin was 0.05, 0.04, and 0.04 with a BNP of 570. TSH was 40 with undetectable free T3 and undetectable free T4 suggestive of him not taking any of his thyroid medications. UA was reviewed. Toxicology was negative. ASSESSMENT: 1. Acute on chronic systolic heart failure. 2. Right-sided heart failure secondary to severe mitral regurgitation. 3. Reduced systolic function, EF at 35% to 40%. 4. Medication noncompliance. 5. Severe hypothyroidism, likely secondary to noncompliance. PLAN: 1. IV diuresis. 2. His mitral valve is most likely going to need repair. He may not be a great candidate given his reduced EF already, but we do not perform this procedure in this facility. We would recommend transfer to a higher level of care in [place] for further evaluation of his mitral valve. His noncompliance is likely the source of his acute exacerbation. At this time, continue IV diuresis. Workup for infection is being done by the primary team as he does have an elevated white count. I have not seen any fevers though. 3. Thank you for letting us to participate in the care of your patient. We will continue to follow. Job ID: [id number]
[2019-10-14 04:17] LABS: Anion Gap 15 mmol/L (10-20); BUN (Urea Nitrogen) 25 mg/dL (8.4-25.7); Calc. Creatinine Clearance 91 mL/min (70-130); Calcium 9.4 mg/dL (7.8-10.44); Carbon Dioxide 22 mmol/L (23-31); Chloride 101 mmol/L (98-107); Estimated GFR-MDRD 62; Glucose 172 mg/dL (83-110); Potassium 4.2 mmol/L (3.5-5.1); Sodium 134 mmol/L (136-145)
[2019-10-14 05:31] LABS: Band 22 % (5-11); Eosinophils 2 % (0-10); Hemoglobin 11.1 g/dL (14.0-18.0); Lymphocytes 6 % (21-51); MDiff Complete? YES; Mean Corpuscular Hemoglobin 32.2 pg (27.0-31.0); Mean Corpuscular Volume 97.6 fL (78.0-98.0); Monocytes 5 % (0-10); Neutrophil 65 % (42-75); Platelet Count 320 thou/uL (130-400); Red Blood Cell (RBC) Count 3.44 mill/uL (4.70-6.10); White Blood Cell (WBC) Count 19.2 thou/uL (4.8-10.8)
[2019-10-14] MEDS: Furosemide 40 MG/4 ML VIAL SLOW IVP SCH ×2 (05:46→13:39)
[2019-10-14] MEDS: Levothyroxine Sodium 50 MCG TAB PO SCH (05:46)
[2019-10-14] MEDS ORDERED: Levothyroxine Sodium 75 MCG TAB PO SCH (06:00)
[2019-10-14] MEDS ORDERED: Levothyroxine Sodium 125 MCG TAB PO SCH (06:00)
--- NOTE | 2019-10-14 06:47 | PDOC.FM ---
- Subjective Subjective: Pt remains short of breath but improving. He does not tolerate walking well. Seen by cardiology yesterday who states he will need transfer if pt wants procedure. Discussed this with pt today and he would like transfer to [place] for evaluation. - Objective Vital Signs & Weight: Vital Signs (12 hours) Temp Pulse Resp BP Pulse Ox 10/14/19 03:19 97.8 F 95 18 109/61 95 10/14/19 01:27 94 16 93 L 10/13/19 19:00 97.6 F 99 20 119/61 97 Weight Weight 118.297 kg I&O: 10/12/19 10/13/19 10/14/19 06:59 06:59 06:59 Intake Total 500 Output Total 525 725 Balance -525 -225 Result Diagrams: 10/14/19 03:35 10/14/19 03:35 EKG Reviewed by me: Yes (NSR) Phys Exam - Physical Examination Constitutional: NAD HEENT: PERRLA, sclera anicteric Neck: no JVD, full ROM Respiratory: no wheezing, no rhonchi decreased breath sounds Cardiovascular: RRR, no significant murmur Gastrointestinal: soft, non-tender, no distention Musculoskeletal: pulses present trace pitting edema Neurological: normal sensation, moves all 4 limbs Psychiatric: normal affect, A&O x 3 Dx/Plan (1) Hypothyroid Code(s): E03.9 - HYPOTHYROIDISM, UNSPECIFIED Status: Acute (2) Leukocytosis Code(s): D72.829 - ELEVATED WHITE BLOOD CELL COUNT, UNSPECIFIED Status: Acute (3) CHF (congestive heart failure) Code(s): I50.9 - HEART FAILURE, UNSPECIFIED Status: Acute (4) DM II (diabetes mellitus, type II), controlled Code(s): E11.9 - TYPE 2 DIABETES MELLITUS WITHOUT COMPLICATIONS Status: Acute (5) HTN (hypertension) Code(s): I10 - ESSENTIAL (PRIMARY) HYPERTENSION Status: Acute (6) Macrocytic anemia Code(s): D53.9 - NUTRITIONAL ANEMIA, UNSPECIFIED Status: Acute (7) Mitral valve anterior leaflet prolapse Code(s): I34.1 - NONRHEUMATIC MITRAL (VALVE) PROLAPSE Status: Acute - Plan Plan: 74 y/o male admitted for further treatment and workup of acute CHF exacerbation 1. Acute CHF exacerbation, HFrEF 2/2 mitral valve regurgitation - continue diuresis - FREDDY in 02/2019: ruptured chordae of anterior leaflet MV prolapse with severe MR. biatrial enlargement, RV dilation with decreased RV function. EF 35-40% - ordered TTE - CXR RLL atelectais - CTA chest: R sided pleural effusion, no PE. D-dimer 2.49 - BNP 570 - Fluid restrict <1800 mL daily, daily weights, strict I/O. - IV 40 mg lasix BID - Cardiology consulted - If pt would like to have valve repair will need to be transferred for procedure as we do not do this at our facility, cards does not believe he is a great candidate for procedure due to depressed EF, also believe he is non-compliant complicating exacerbations. - Pt would prefer to be evaluated for mitral valve replacement in [place]. 2. Indeterminate troponin levels - Trop 0.058 indeterminate, denies chest pain. - EKG: Sinus, rate 99, no ST elevations or depressions. - Most likely 2/2 volume overload and stretching of myocytes 3. FABIAN, Cardiorenal Syndrome - stable - Cr 1.41 -> 1.15 - Cr 1.13 last week. - continue 40 IV lasix, will monitor QAM for improvement. 4. R sided Pleural effusion - likely secondary to heart failure exacerbation. Shortness of breath improving at rest. 5. hx of DM II - random Glucose 225 - a1c 8.6 - continue metformin 1000 mg BID, SSI, Qachs accuchecks. 6. Hx of HTN - pt only on lasix Po 20 mg BID - will monitor and optimize therapy. 7. Hx of hypothyroidism Subtherapeutic. - start levothyroxine 50 mcg. Recheck in the outpt setting for appropriate titration. 8. Macrocytic anemia - Iron, ITBC are low. ferritin WNL. - B12 WNL, folate borderline although this was not an RBC folate. 9. Leukocytosis No signs of infection but WBC 21.9 -> 19.2 with bandemia. - currently treating for possible pneumonia not seen due to pleural effusion, congestion. Procalcitonin negative. Afebrile. - Will continue to treat. If discharged will switch to amoxicillen, cont azithro Code status: full code diet: HH, CC, <1800 mL daily fluid restriction dvt ppx: lovenox Dispo: stable, admit to tele inpt.
[2019-10-14] MEDS: Aspirin 81 mg Enteric Coated Tablet PO SCH (09:18)
[2019-10-14] MEDS: Acetaminophen 325 MG TAB PO SCH ×3 (09:18→21:12)
[2019-10-14] MEDS: Naproxen 500 MG TAB PO SCH ×2 (09:19→17:50)
[2019-10-14] MEDS: Azithromycin 250 MG TAB PO SCH (09:20)
[2019-10-14] MEDS: metFORMIN 500 MG TAB PO SCH ×2 (09:20→17:50)
[2019-10-14] MEDS: Enoxaparin Sodium 40 MG/0.4 ML SYRINGE SC SCH (09:21)
[2019-10-14] MEDS: Insulin Regular 300 UNITS/3 ML VIAL SC PRN ×4 (09:21→21:12)
[2019-10-14] MEDS: carBAMazepine SR 300 mg Capsule PO SCH (09:22)
--- NOTE | 2019-10-14 11:53 | PRG ---
DATE OF SERVICE: 10/14/2019 Mr. Soto states that overall this morning he feels better and improved. He is still short of breath, although this has improved somewhat. We held a discussion with him about his mitral valve and the need for repair. He has opted for transfer to [facility] in [place] to be evaluated for mitral valve repair and replacement. Job ID: [id number]
[2019-10-14] MEDS: cefTRIAXone\\ROCEPHIN 1 GM in Sodium Chloride 0.9% 100 ML IVPB SCH (13:45)
--- NOTE | 2019-10-14 15:42 | PDOC.CPN ---
- Subjective Date: 10/14/19 Time: 15:40 Interval history: No new issues. Breathing close to baseline. - Review of Systems General: denies: fever/chills, weight/appetite/sleep changes, night sweats, fatigue Respiratory: reports: shortness of breath. denies: cough, congestion, exercise intolerance Cardiovascular: denies: chest pain, palpitation, edema, paroxysmal nocturnal dyspnea, orthopnea Gastrointestinal: denies: nausea, vomiting, diarrhea, constipation, abd pain, GI bleeding Musculoskeletal: denies: pain, tenderness, stiffness, swelling, arthritis/ arthralgias Neurological: denies: numbness, syncope, seizure, weakness - Objective Allergies/Adverse Reactions: Allergies Allergy/AdvReac Type Severity Reaction Status Date / Time No Known Allergies Allergy Verified 10/12/19 22:31 Visit Medications: Current Medications Acetaminophen (Tylenol) 650 mg PO TID [facility] Last Admin: 10/14/19 15:07 Dose: 650 mg Aspirin (Ecotrin) 81 mg PO DAILY [facility] Last Admin: 10/14/19 09:18 Dose: 81 mg Azithromycin (Zithromax) 500 mg PO DAILY [facility] Stop: 10/16/19 09:01 Last Admin: 10/14/19 09:20 Dose: 500 mg Carbamazepine (Carbatrol) 600 mg PO DAILY [facility] Last Admin: 10/14/19 09:22 Dose: 600 mg Dextrose/Water (Dextrose 50%) 25 gm SLOW IVP PRN PRN PRN Reason: Hypoglycemia Diphenhydramine HCl (Benadryl) 25 mg PO TIDPRN PRN PRN Reason: ALLERGIES/ITCHING Enoxaparin Sodium (Lovenox) 40 mg SC 0900 [facility] Last Admin: 10/14/19 09:21 Dose: 40 mg Furosemide (Lasix) 40 mg SLOW IVP 0600,1400 [facility] Last Admin: 10/14/19 13:39 Dose: 40 mg Glucagon (Glucagon) 1 mg IM PRN PRN PRN Reason: Hypoglycemia Dextrose/Water (D5w) 1,000 mls @ 0 mls/hr IV .Q0M PRN PRN Reason: Hypoglycemia Ceftriaxone Sodium 1 gm/ (Sodium Chloride) 100 mls @ 200 mls/hr IVPB Q24HR [facility] Last Admin: 10/14/19 13:45 Dose: 100 mls Insulin Human Regular (Humulin R) 0 units SC .MILD SLIDING SCALE PRN PRN Reason: Mild Correctional Scale Last Admin: 10/14/19 11:40 Dose: 5 unit Insulin Human Regular (Humulin R) 0 units SC .BEDTIME SLIDING SC PRN PRN Reason: Bedtime Correctional Scale Last Admin: 10/13/19 21:42 Dose: 3 unit Levothyroxine Sodium (Synthroid) 50 mcg PO 0600 [facility] Last Admin: 10/14/19 05:46 Dose: 50 mcg Loratadine (Claritin) 10 mg PO DAILYPRN PRN PRN Reason: Allergies Meclizine HCl (Antivert) 25 mg PO BIDPRN PRN PRN Reason: Dizziness Metformin HCl (Glucophage) 1,000 mg PO BID-[facility] Last Admin: 10/14/19 09:20 Dose: 1,000 mg Naproxen (Naprosyn) 500 mg PO BID-[facility] Last Admin: 10/14/19 09:19 Dose: 500 mg Sodium Chloride (Flush - Normal Saline) 10 ml IVF Q12HR [facility] Last Admin: 10/14/19 09:26 Dose: 10 ml Sodium Chloride (Flush - Normal Saline) 10 ml IVF PRN PRN PRN Reason: Saline Flush Vital Signs & Weight: Vital Signs Temp Pulse Pulse Pulse Resp BP BP 10/14/19 15:10 97.9 F 103 H 18 124/74 10/14/19 11:22 98.1 F 100 22 H 137/91 H 10/14/19 10:40 98 100 127/77 10/14/19 08:10 10/14/19 07:36 97.5 F L 93 20 135/80 Pulse Ox 10/14/19 15:10 97 10/14/19 11:22 95 10/14/19 10:40 10/14/19 08:10 98 10/14/19 07:36 98 Weight 260 lb 12.8 oz - Physical Exam General: alert & oriented x3 HEENT: mucus membranes moist Neck: supple neck Cardiac: regular rate and rhythm, systolic murmur Lungs: normal breath sounds Neuro: grossly intact Abdomen: active bowel sounds Extremities: 1+ LE edema Skin: clear Musculoskeletal: no pain - Labs Result Diagrams: 10/14/19 03:35 10/14/19 03:35 Troponin/CKMB CK-MB (CK-2) 8.7 ng/mL (0-6.6) H* 02/16/20 15:44 Troponin I 0.046 ng/mL (< 0.028) H 10/12/19 22:51 - Telemetry Sinus rhythms and dysrhythmias: sinus rhythm - Assessment/Plan Assessment/Plan: 1. Acute on chronic systolic and diastolic heart failure. 2. Severe MR 3. Flail Anterior mitral valve leaflet 4. EF at 50-55% on echo yesterday. PLAN: - Continue IV diuresis. - Will need Mitral valve repair. Will plan on transfer to [place] for consideration of MV repair/replacement. - Continue other meds.
[2019-10-15 05:08] LABS: #Eosinphils 0.4 thou/uL (0.0-0.7); #Lymphocytes 1.2 thou/uL (1.20-3.40); #Monocytes 0.9 thou/uL (0.11-0.59); #Neutrophils 15.4 thou/uL (1.40-6.50); %Basophils 0.1 % (0.0-1.0); %Eosinophils 2.1 % (0.0-10.0); %Lymphocytes 6.8 % (21.0-51.0); %Monocytes 5.2 % (0.0-10.0); %Neutrophils 85.8 % (42.0-75.0); Hemoglobin 11.4 g/dL (14.0-18.0); Mean Corpuscular HGB CONC 33.2 g/dL (32.0-36.0); Mean Corpuscular Hemoglobin 32.6 pg (27.0-31.0); Mean Corpuscular Volume 98.4 fL (78.0-98.0); Mean Platelet Volume 7.8 fL (7.4-10.4); Platelet Count 342 thou/uL (130-400); RBC Distribution Width 14.1 % (11.5-14.5); Red Blood Cell (RBC) Count 3.49 mill/uL (4.70-6.10)
[2019-10-15 05:26] LABS: Anion Gap 15 mmol/L (10-20); BUN (Urea Nitrogen) 28 mg/dL (8.4-25.7); Calc. Creatinine Clearance 91 mL/min (70-130); Calcium 9.5 mg/dL (7.8-10.44); Carbon Dioxide 24 mmol/L (23-31); Chloride 100 mmol/L (98-107); Estimated GFR-MDRD 62; Glucose 196 mg/dL (83-110); Potassium 4.3 mmol/L (3.5-5.1); Sodium 135 mmol/L (136-145)
[2019-10-15] MEDS: Levothyroxine Sodium 50 MCG TAB PO SCH (06:07)
[2019-10-15] MEDS: Furosemide 40 MG/4 ML VIAL SLOW IVP SCH ×2 (06:07→14:44)
--- NOTE | 2019-10-15 06:47 | PDOC.FM ---
- Subjective Subjective: Pt is remains orthopneic, sob with movement. He has poor mobility requiring help to sit on the side of bed. He had his echo performed yesterday revealing EF 50-55%. He has urinary retention. He has a erythematous lesion on R groin and did not know it. - Objective Vital Signs & Weight: Vital Signs (12 hours) Temp Pulse Resp BP Pulse Ox 10/15/19 04:02 97.5 F L 89 20 139/90 95 10/14/19 20:25 97.7 F 98 20 113/65 94 L 10/14/19 20:00 94 L Weight Weight 118.297 kg I&O: 10/13/19 10/14/19 10/15/19 06:59 06:59 06:59 Intake Total 500 1170 Output Total 525 725 700 Balance -525 -225 470 Result Diagrams: 10/15/19 04:04 10/15/19 04:04 EKG Reviewed by me: Yes (NSR) Phys Exam - Physical Examination Constitutional: NAD HEENT: PERRLA, moist MMs Respiratory: no wheezing, no rhonchi Decreased breath sound in R base Cardiovascular: RRR, no significant murmur Gastrointestinal: soft, non-tender, positive bowel sounds Musculoskeletal: pulses present Trace edema Neurological: normal sensation, moves all 4 limbs Psychiatric: normal affect, A&O x 3 Skin: cap refill <2 seconds Deviation from normal: Erythematous, warm to touch, indurated w/o fluctuance lesion in the R groin Dx/Plan (1) Hypothyroid Code(s): E03.9 - HYPOTHYROIDISM, UNSPECIFIED Status: Acute (2) Leukocytosis Code(s): D72.829 - ELEVATED WHITE BLOOD CELL COUNT, UNSPECIFIED Status: Acute (3) CHF (congestive heart failure) Code(s): I50.9 - HEART FAILURE, UNSPECIFIED Status: Acute (4) DM II (diabetes mellitus, type II), controlled Code(s): E11.9 - TYPE 2 DIABETES MELLITUS WITHOUT COMPLICATIONS Status: Acute (5) HTN (hypertension) Code(s): I10 - ESSENTIAL (PRIMARY) HYPERTENSION Status: Acute (6) Macrocytic anemia Code(s): D53.9 - NUTRITIONAL ANEMIA, UNSPECIFIED Status: Acute (7) Mitral valve anterior leaflet prolapse Code(s): I34.1 - NONRHEUMATIC MITRAL (VALVE) PROLAPSE Status: Acute - Plan Plan: 74 y/o male admitted for further treatment and workup of acute CHF exacerbation 1. Acute CHF exacerbation, HFrEF 2/2 mitral valve regurgitation - continue diuresis - FREDDY in 02/2019: ruptured chordae of anterior leaflet MV prolapse with severe MR. biatrial enlargement, RV dilation with decreased RV function. EF 35-40%. - TTE 10/14/19: EF 50-55% - CXR RLL atelectais - CTA chest: R sided pleural effusion, no PE. D-dimer 2.49 - BNP 570 - Fluid restrict <1800 mL daily, daily weights, strict I/O. - IV 40 mg lasix BID - Cardiology consulted - If pt would like to have valve repair will need to be transferred for procedure as we do not do this at our facility, cards does not believe he is a great candidate for procedure due to depressed EF, also believe he is non-compliant complicating exacerbations. - Waiting for [facility] to call for acceptance. Spoke with the team yesterday but did not receive call from accepting physician. 2. Indeterminate troponin levels - stable - Trop 0.058 indeterminate, denies chest pain. - EKG: Sinus, rate 99, no ST elevations or depressions. - Most likely 2/2 volume overload and stretching of myocytes 3. FABIAN, Cardiorenal Syndrome - stable - Cr 1.41 -> 1.15 - Cr 1.13 last week. - continue 40 IV lasix, will monitor QAM for improvement. 4. R sided Pleural effusion - stable - monitor 5. hx of DM II - a1c 8.6 - continue metformin 1000 mg BID, SSI, Qachs accuchecks. 6. Hx of HTN - pt only on lasix Po 20 mg BID - will monitor and optimize therapy. 7. Hx of hypothyroidism Subtherapeutic. - start levothyroxine 50 mcg. Recheck in the outpt setting for appropriate titration. 8. Macrocytic anemia - Iron, ITBC are low. ferritin WNL. - B12 WNL, folate borderline although this was not an RBC folate. 9. Cellulitis R Groin - d/c azithro, ceftriaxone - start clindamycin, diflucan 10. Urinary Retention - start flomax, straight cath x 1 Code status: full code diet: HH, CC, <1800 mL daily fluid restriction dvt ppx: lovenox Dispo: stable, pending transfer to [facility] for mitral valve repair
[2019-10-15] MEDS: metFORMIN 500 MG TAB PO SCH ×2 (09:26→17:04)
[2019-10-15] MEDS: Acetaminophen 325 MG TAB PO SCH ×3 (09:27→20:14)
[2019-10-15] MEDS: Azithromycin 250 MG TAB PO SCH (09:27)
[2019-10-15] MEDS: Enoxaparin Sodium 40 MG/0.4 ML SYRINGE SC SCH (09:27)
[2019-10-15] MEDS: Naproxen 500 MG TAB PO SCH ×2 (09:27→17:36)
[2019-10-15] MEDS: Aspirin 81 mg Enteric Coated Tablet PO SCH (09:27)
[2019-10-15] MEDS: carBAMazepine SR 300 mg Capsule PO SCH (09:28)
[2019-10-15] MEDS ORDERED: Tamsulosin HCl 0.4 MG CAP PO SCH (11:15)
--- NOTE | 2019-10-15 11:24 | PRG ---
DATE OF SERVICE: 10/15/2019 Mr. Soto is still awaiting transfer to [facility] to consider mitral valve repair. We have noted a red rash in the intertriginous areas of the groin consistent with cellulitis. He likely has an overlying yeast infection as well. We will begin intravenous Cleocin as well as p.o. Diflucan. Job ID: [id number]
[2019-10-15] MEDS: Fluconazole 100 MG TAB PO SCH ×2 (11:48→20:14)
[2019-10-15] MEDS: Clindamycin/D5W 900 MG in Premix Bag 1 BAG IVPB SCH ×2 (11:49→20:14)
[2019-10-15] MEDS: Insulin Regular 300 UNITS/3 ML VIAL SC PRN ×3 (11:54→20:14)
--- NOTE | 2019-10-15 18:31 | PDOC.CPN ---
- Subjective Date: 10/15/19 Time: 18:28 Interval history: No new issues. Still SOB but better. More confused today. - Review of Systems ROS unobtainable: due to mental status - Objective Allergies/Adverse Reactions: Allergies Allergy/AdvReac Type Severity Reaction Status Date / Time No Known Allergies Allergy Verified 10/12/19 22:31 Visit Medications: Current Medications Acetaminophen (Tylenol) 650 mg PO TID [facility] Last Admin: 10/15/19 14:44 Dose: 650 mg Aspirin (Ecotrin) 81 mg PO DAILY [facility] Last Admin: 10/15/19 09:27 Dose: 81 mg Carbamazepine (Carbatrol) 600 mg PO DAILY [facility] Last Admin: 10/15/19 09:28 Dose: 600 mg Dextrose/Water (Dextrose 50%) 25 gm SLOW IVP PRN PRN PRN Reason: Hypoglycemia Diphenhydramine HCl (Benadryl) 25 mg PO TIDPRN PRN PRN Reason: ALLERGIES/ITCHING Enoxaparin Sodium (Lovenox) 40 mg SC 0900 [facility] Last Admin: 10/15/19 09:27 Dose: 40 mg Fluconazole (Diflucan) 150 mg PO Q7H [facility] Stop: 10/16/19 09:01 Last Admin: 10/15/19 11:48 Dose: 150 mg Furosemide (Lasix) 40 mg SLOW IVP 0600,1400 [facility] Last Admin: 10/15/19 14:44 Dose: 40 mg Glucagon (Glucagon) 1 mg IM PRN PRN PRN Reason: Hypoglycemia Dextrose/Water (D5w) 1,000 mls @ 0 mls/hr IV .Q0M PRN PRN Reason: Hypoglycemia Clindamycin Phosphate/Dextrose (900 mg/ Device) 50 mls @ 100 mls/hr IVPB Q8H [facility] Last Admin: 10/15/19 11:49 Dose: 50 mls Insulin Human Regular (Humulin R) 0 units SC .MILD SLIDING SCALE PRN PRN Reason: Mild Correctional Scale Last Admin: 10/15/19 17:30 Dose: 4 unit Insulin Human Regular (Humulin R) 0 units SC .BEDTIME SLIDING SC PRN PRN Reason: Bedtime Correctional Scale Last Admin: 10/14/19 21:12 Dose: 2 unit Levothyroxine Sodium (Synthroid) 50 mcg PO 0600 [facility] Last Admin: 10/15/19 06:07 Dose: 50 mcg Loratadine (Claritin) 10 mg PO DAILYPRN PRN PRN Reason: Allergies Meclizine HCl (Antivert) 25 mg PO BIDPRN PRN PRN Reason: Dizziness Metformin HCl (Glucophage) 1,000 mg PO BID-[facility] Last Admin: 10/15/19 17:04 Dose: 1,000 mg Naproxen (Naprosyn) 500 mg PO BID-[facility] Last Admin: 10/15/19 17:36 Dose: 500 mg Sodium Chloride (Flush - Normal Saline) 10 ml IVF Q12HR [facility] Last Admin: 10/15/19 09:29 Dose: 10 ml Sodium Chloride (Flush - Normal Saline) 10 ml IVF PRN PRN PRN Reason: Saline Flush Tamsulosin HCl (Flomax) 0.4 mg PO DAILY [facility] Vital Signs & Weight: Vital Signs Temp Pulse Pulse Pulse Resp BP BP 10/15/19 15:38 98.3 F 97 15 114/53 L 10/15/19 11:17 97.5 F L 103 H 25 H 152/85 H 10/15/19 10:38 102 H 106 H 133/68 10/15/19 08:28 99.1 F 95 23 H 132/75 Pulse Ox 10/15/19 15:38 93 L 10/15/19 11:17 93 L 10/15/19 10:38 10/15/19 08:28 94 L Weight 260 lb 12.8 oz - Physical Exam General: no apparent distress HEENT: mucus membranes moist Neck: supple neck Cardiac: regular rate and rhythm Lungs: normal breath sounds Neuro: no lateralizing findings Abdomen: active bowel sounds Extremities: no edema Skin: clear Musculoskeletal: no pain - Labs Result Diagrams: 10/15/19 04:04 10/15/19 04:04 Troponin/CKMB CK-MB (CK-2) 8.7 ng/mL (0-6.6) H* 10/12/19 15:44 Troponin I 0.046 ng/mL (< 0.028) H 10/12/19 22:51 - Telemetry Sinus rhythms and dysrhythmias: sinus rhythm - Assessment/Plan Assessment/Plan: 1. Acute on chronic systolic and diastolic heart failure. 2. Severe MR 3. Flail posterior mitral valve leaflet 4. EF at 50-55% on echo yesterday. PLAN: - Continue IV diuresis. - Will need Mitral valve repair. - Continue other meds. - Echo done confirmed severe MR, he has an anteriorly directed jet that reaches the roof of a very large LA. - Awaiting transfer for consideration of mitral valve repair in [facility].
[2019-10-16] MEDS: Fluconazole 100 MG TAB PO SCH ×2 (01:41→09:30)
[2019-10-16 04:43] LABS: #Basophils 0.1 thou/uL (0.0-0.2); #Eosinphils 0.3 thou/uL (0.0-0.7); #Lymphocytes 1.6 thou/uL (1.20-3.40); #Monocytes 0.9 thou/uL (0.11-0.59); #Neutrophils 11.1 thou/uL (1.40-6.50); %Basophils 0.4 % (0.0-1.0); %Eosinophils 2.2 % (0.0-10.0); %Lymphocytes 11.5 % (21.0-51.0); %Monocytes 6.4 % (0.0-10.0); %Neutrophils 79.5 % (42.0-75.0); Hemoglobin 11.5 g/dL (14.0-18.0); Mean Corpuscular HGB CONC 31.7 g/dL (32.0-36.0); Mean Corpuscular Hemoglobin 31.6 pg (27.0-31.0); Mean Corpuscular Volume 99.7 fL (78.0-98.0); Mean Platelet Volume 7.4 fL (7.4-10.4); Platelet Count 342 thou/uL (130-400); RBC Distribution Width 14.2 % (11.5-14.5); Red Blood Cell (RBC) Count 3.63 mill/uL (4.70-6.10); White Blood Cell (WBC) Count 13.9 thou/uL (4.8-10.8)
[2019-10-16] MEDS: Clindamycin/D5W 900 MG in Premix Bag 1 BAG IVPB SCH ×3 (05:06→20:52)
[2019-10-16 05:09] LABS: Anion Gap 16 mmol/L (10-20); BUN (Urea Nitrogen) 27 mg/dL (8.4-25.7); Calc. Creatinine Clearance 97 mL/min (70-130); Calcium 9.4 mg/dL (7.8-10.44); Carbon Dioxide 22 mmol/L (23-31); Chloride 100 mmol/L (98-107); Estimated GFR-MDRD 66; Glucose 166 mg/dL (83-110); Sodium 134 mmol/L (136-145)
[2019-10-16] MEDS: Furosemide 40 MG/4 ML VIAL SLOW IVP SCH ×2 (06:21→14:39)
[2019-10-16] MEDS: Levothyroxine Sodium 50 MCG TAB PO SCH (06:21)
--- NOTE | 2019-10-16 06:36 | PDOC.FPRHP ---
- Allergies/Adverse Reactions Allergies Allergy/AdvReac Type Severity Reaction Status Date / Time No Known Allergies Allergy Verified 10/12/19 22:31 - Home Medications Medication Instructions Recorded Confirmed Type Aspirin [Ecotrin Low Strength] 81 mg PO DAILY 03/06/19 10/12/19 History Furosemide [Lasix] 20 mg PO BID 03/06/19 10/12/19 History Insulin NPH Human Isophane 10 unit SC BID-AC 03/06/19 10/12/19 History [NovoLIN N] Insulin Regular, Human [Novolin R] 0 - 100 unit SQ ACHS 03/06/19 10/12/19 History Levothyroxine Sodium [Synthroid] 0.025 mcg PO DAILY 03/06/19 10/12/19 History carBAMazepine [Carbamazepine ER] 600 mg PO DAILY 03/06/19 10/12/19 History metFORMIN [Glucophage] 1,000 mg PO BID-[facility] 03/06/19 10/12/19 History Acetaminophen [Tylenol] 650 mg PO TID 10/12/19 10/12/19 History Loratadine [Claritin] 10 mg PO DAILY PRN 10/12/19 10/12/19 History Meclizine HCl [Antivert] 25 mg PO BID PRN 10/12/19 10/12/19 History Naphazoline/Hpm/Ps80/Zinc Sulf 1 - 2 drop EA EYE QID PRN 10/12/19 10/12/19 History [Clear Eyes Complete Eye Drops] Naproxen [Naprosyn] 500 mg PO BID 10/12/19 10/12/19 History diphenhydrAMINE [Benadryl] 25 mg PO TID PRN 10/12/19 10/12/19 History - History PMHx: PSHx: FHx: Social: - Vital signs BP: [] HR: [] RR: [] Tmax: [] Pox: []% on [] Wt: [] FMR H&P: Results - Labs Result Diagrams: 10/16/19 04:13 10/16/19 04:13 Lab results: WBC 13.9 thou/uL (4.8-10.8) H 10/16/19 04:13 Hgb 11.5 g/dL (14.0-18.0) L 10/16/19 04:13 Hct 36.2 % (42.0-52.0) L 10/16/19 04:13 MCV 99.7 fL (78.0-98.0) H 10/16/19 04:13 Plt Count 342 thou/uL (130-400) 10/16/19 04:13 Neutrophils % 79.5 % (42.0-75.0) H 10/16/19 04:13 Band Neuts % (Manual) 22 % (5-11) H 10/14/19 03:35 Sodium 134 mmol/L (136-145) L 10/16/19 04:13 Potassium 4.0 mmol/L (3.5-5.1) 10/16/19 04:13 Chloride 100 mmol/L (98-107) 10/16/19 04:13 Carbon Dioxide 22 mmol/L (23-31) L 10/16/19 04:13 BUN 27 mg/dL (8.4-25.7) H 10/16/19 04:13 Creatinine 1.08 mg/dL (0.7-1.3) 10/16/19 04:13 Glucose 166 mg/dL (83-110) H 10/16/19 04:13 Calcium 9.4 mg/dL (7.8-10.44) 10/16/19 04:13 Total Bilirubin 0.4 mg/dL (0.2-1.2) 10/12/19 15:44 AST 20 U/L (5-34) 10/12/19 15:44 ALT 26 U/L (8-55) 10/12/19 15:44 Alkaline Phosphatase 99 U/L (40-110) 10/12/19 15:44 Creatine Kinase 150 U/L (30-200) 10/12/19 15:44 CK-MB (CK-2) 8.7 ng/mL (0-6.6) H* 10/12/19 15:44 B-Natriuretic Peptide 570.4 pg/mL (0-100) H 10/12/19 15:43 Serum Total Protein 6.7 g/dL (5.8-8.1) 10/12/19 15:44 Albumin 3.5 g/dL (3.4-4.8) 10/12/19 15:44 Urine Ketones 10 mg/dL (Negative) A 10/13/19 12:40 Urine Blood Negative (Negative) 10/13/19 12:40 Urine Nitrite Negative (Negative) 10/13/19 12:40 Ur Leukocyte Esterase Negative Gabe/uL (Negative) 10/13/19 12:40 Urine RBC 0-3 HPF (0-3) 10/13/19 12:40 Urine WBC 0-3 HPF (0-3) 10/13/19 12:40 Ur Squamous Epith Cells None Seen HPF (0-3) 10/13/19 12:40 Urine Bacteria None Seen HPF (None Seen) 10/13/19 12:40 FMR H&P: A/P - Problem List (1) Hypothyroid Current Visit: Yes Status: Acute Code(s): E03.9 - HYPOTHYROIDISM, UNSPECIFIED (2) Leukocytosis Current Visit: Yes Status: Acute Code(s): D72.829 - ELEVATED WHITE BLOOD CELL COUNT, UNSPECIFIED (3) CHF (congestive heart failure) Current Visit: Yes Status: Acute Code(s): I50.9 - HEART FAILURE, UNSPECIFIED (4) DM II (diabetes mellitus, type II), controlled Current Visit: Yes Status: Acute Code(s): E11.9 - TYPE 2 DIABETES MELLITUS WITHOUT COMPLICATIONS (5) HTN (hypertension) Current Visit: Yes Status: Acute Code(s): I10 - ESSENTIAL (PRIMARY) HYPERTENSION (6) Macrocytic anemia Current Visit: Yes Status: Acute Code(s): D53.9 - NUTRITIONAL ANEMIA, UNSPECIFIED (7) Mitral valve anterior leaflet prolapse Current Visit: Yes Status: Acute Code(s): I34.1 - NONRHEUMATIC MITRAL (VALVE ) PROLAPSE FMR H&P: Upper Level - Plan Date/Time: 10/16/19 0634 I, [], have evaluated this patient and agree with findings/plan as outlined by college intern resident. Pertinent changes/additions are listed here.
--- NOTE | 2019-10-16 08:28 | RAD ---
EXAM: CHEST ONE VIEW HISTORY: Dyspnea. COMPARISON: 10/13/2019 FINDINGS: Cardiac silhouette is magnified by projection but does appear mildly enlarged. Central pulmonary vasc ulature is mildly increased. There is persistent elevation of the right hemidiaphragm with increased density right lung base probably attributable to atelectasis. Left lung remains clear. No o ther interval change. IMPRESSION: 1. Persistent elevation right hemidiaphragm with increased density right lung base likely attributabl e to atelectasis. 2. Mild cardiomegaly and prominence of the central pulmonary vasculature.
[2019-10-16 09:00] LABS: Actual Bicarbonate (HCO3a) 24.8 mEq/L (22-28); Analyzer IN Cardio OR; Base Excess (BEa) 1.5 mEq/L (-2.0 to +3.0); CO2 Tension 34.7 mmHg (35.0-45.0); Calcium, Ionized 1.13 mmol/L (1.12-1.30); Carboxyhemoglobin (COHb) 1.5 gm% (0.0-3.0); Hemoglobin (Hb) 11.5 g/dL (14.0-18.0); Potassium - ABG Lab 3.88 mmol/L (3.70-5.30); pH, Arterial 7.47 (7.35-7.45)
[2019-10-16 09:01] LABS: ALV-art Gradient 34.355 (0-20); Puncture Site RR
--- NOTE | 2019-10-16 09:24 | PDOC.FM ---
- Subjective Subjective: Pt is short of breath, slightly altered this am. He has slow recollection and difficulty comprehending questions. He has slight upper airway wheezing, tachypnea. Cellulitis is much improved. - Objective Vital Signs & Weight: Vital Signs (12 hours) Temp Pulse Resp BP Pulse Ox 10/16/19 08:00 98.7 F 91 26 H 143/78 H 93 L 10/16/19 03:03 96.4 F L 87 18 95/64 92 L 10/15/19 23:22 96.3 F L 88 16 104/61 95 Weight Weight 109.571 kg I&O: 10/15/19 10/16/19 10/17/19 06:59 06:59 06:59 Intake Total 1170 460 Output Total 700 2090 Balance 470 -1630 Result Diagrams: 10/16/19 04:13 10/16/19 04:13 Phys Exam - Physical Examination uncomfortable, tachypnea HEENT: PERRLA, moist MMs Neck: no JVD, full ROM decreased air movement, upper resp wheezing, no crackles Cardiovascular: RRR, no significant murmur Gastrointestinal: soft, non-tender, no distention Musculoskeletal: no edema, pulses present Neurological: normal sensation, moves all 4 limbs Deviation from normal: AAO x 2, decreased mentation Skin: no rash, cap refill <2 seconds Dx/Plan (1) Hypothyroid Code(s): E03.9 - HYPOTHYROIDISM, UNSPECIFIED Status: Acute (2) Leukocytosis Code(s): D72.829 - ELEVATED WHITE BLOOD CELL COUNT, UNSPECIFIED Status: Acute (3) CHF (congestive heart failure) Code(s): I50.9 - HEART FAILURE, UNSPECIFIED Status: Acute (4) DM II (diabetes mellitus, type II), controlled Code(s): E11.9 - TYPE 2 DIABETES MELLITUS WITHOUT COMPLICATIONS Status: Acute (5) HTN (hypertension) Code(s): I10 - ESSENTIAL (PRIMARY) HYPERTENSION Status: Acute (6) Macrocytic anemia Code(s): D53.9 - NUTRITIONAL ANEMIA, UNSPECIFIED Status: Acute (7) Mitral valve anterior leaflet prolapse Code(s): I34.1 - NONRHEUMATIC MITRAL (VALVE) PROLAPSE Status: Acute - Plan Plan: 74 y/o male admitted for further treatment and workup of acute CHF exacerbation 1. Acute CHF exacerbation, HFrEF 2/2 mitral valve regurgitation - continue diuresis - FREDDY in 02/2019: ruptured chordae of anterior leaflet MV prolapse with severe MR. biatrial enlargement, RV dilation with decreased RV function. EF 35-40%. - TTE 10/14/19: EF 50-55% - CXR RLL atelectais - CTA chest: R sided pleural effusion, no PE. D-dimer 2.49 - BNP 570 - Fluid restrict <1800 mL daily, daily weights, strict I/O. - IV 40 mg lasix BID - Cardiology consulted - If pt would like to have valve repair will need to be transferred for procedure as we do not do this at our facility, cards does not believe he is a great candidate for procedure due to depressed EF, also believe he is non-compliant complicating exacerbations. - Waiting for [facility] to call for acceptance. Spoke with the team yesterday but did not receive call from accepting physician. 2. Indeterminate troponin levels - stable - Trop 0.058 indeterminate, denies chest pain. - EKG: Sinus, rate 99, no ST elevations or depressions. - Most likely 2/2 volume overload and stretching of myocytes 3. FABIAN, Cardiorenal Syndrome - stable - Cr 1.41 -> 1.08 - Cr 1.13 last week. - continue lasix 40 IV BID, will monitor QAM for improvement. 4. R sided Pleural effusion - stable - monitor 5. hx of DM II - a1c 8.6 - continue metformin 1000 mg BID, SSI, Qachs accuchecks. 6. Hx of HTN - pt only on lasix Po 20 mg BID - will monitor and optimize therapy. 7. Hx of hypothyroidism Subtherapeutic. - start levothyroxine 50 mcg. Recheck in the outpt setting for appropriate titration. 8. Macrocytic anemia - Iron, ITBC are low. ferritin WNL. - B12 WNL, folate borderline although this was not an RBC folate. 9. Cellulitis R Groin - improving - d/c azithro, ceftriaxone - start clindamycin, diflucan 10. Urinary Retention - start flomax, - improved 11. Decreased Mentation 12. Tachypnea - ABG, CXR ordered Code status: full code diet: HH, CC, <1800 mL daily fluid restriction dvt ppx: lovenox Dispo: ordered cxr, abg; pending transfer to [facility] for mitral valve repair
[2019-10-16] MEDS: Acetaminophen 325 MG TAB PO SCH ×3 (09:31→20:53)
[2019-10-16] MEDS: Naproxen 500 MG TAB PO SCH ×2 (09:31→18:07)
[2019-10-16] MEDS: metFORMIN 500 MG TAB PO SCH ×2 (09:32→17:58)
[2019-10-16] MEDS: Tamsulosin HCl 0.4 MG CAP PO SCH (09:32)
[2019-10-16] MEDS: Enoxaparin Sodium 40 MG/0.4 ML SYRINGE SC SCH (09:32)
[2019-10-16] MEDS: Aspirin 81 mg Enteric Coated Tablet PO SCH (09:32)
[2019-10-16] MEDS ORDERED: Nystatin Powder 15 GM BOT TOP PRN (11:15)
--- NOTE | 2019-10-16 11:47 | PRG ---
DATE OF SERVICE: 10/16/2019 Mr. Soto became more acutely short of breath and lethargic early this morning. He was given Lasix and has improved slightly. His ABG on room air showed a pH of 7.47, pCO2 of 34.7, and a pO2 of 72. His chest x-ray also done this morning showed an elevated right hemidiaphragm and some atelectasis at the right base. There was mild cardiomegaly and prominence of the central pulmonary vasculature. In the event clinically this morning, he has improved, but still is short of breath and appears to be tiring. It will be prudent to transfer to the MICU for a BiPAP and consultation with the cytotechnologist. We are still attempting to arrange his transfer to [facility] for consideration of mitral valve repair. Job ID: [id number]
[2019-10-16] MEDS: Insulin Regular 300 UNITS/3 ML VIAL SC PRN ×2 (12:28→21:26)
[2019-10-16 12:46] VITALS: BP 116/63
--- NOTE | 2019-10-16 18:27 | PDOC.CPN ---
- Subjective Date: 10/16/19 Time: 18:25 Interval history: he had to be transferred to [facility] for worsening on his breathing. He got better after neb and IV lasix. On my evaluation he is doing better. - Review of Systems General: denies: fever/chills, weight/appetite/sleep changes, night sweats, fatigue Respiratory: denies: cough, congestion, shortness of breath, exercise intolerance Cardiovascular: denies: chest pain, palpitation, edema, paroxysmal nocturnal dyspnea, orthopnea Gastrointestinal: denies: nausea, vomiting, diarrhea, constipation, abd pain, GI bleeding Musculoskeletal: denies: pain, tenderness, stiffness, swelling, arthritis/ arthralgias Neurological: denies: numbness, syncope, seizure, weakness - Objective Allergies/Adverse Reactions: Allergies Allergy/AdvReac Type Severity Reaction Status Date / Time No Known Allergies Allergy Verified 10/12/19 22:31 Visit Medications: Current Medications Acetaminophen (Tylenol) 650 mg PO TID [facility] Last Admin: 10/16/19 14:39 Dose: 650 mg Aspirin (Ecotrin) 81 mg PO DAILY [facility] Last Admin: 10/16/19 09:32 Dose: 81 mg Carbamazepine (Tegretol Xr) 600 mg PO DAILY [facility] Last Admin: 10/16/19 09:30 Dose: 600 mg Dextrose/Water (Dextrose 50%) 25 gm SLOW IVP PRN PRN PRN Reason: Hypoglycemia Diphenhydramine HCl (Benadryl) 25 mg PO TIDPRN PRN PRN Reason: ALLERGIES/ITCHING Enoxaparin Sodium (Lovenox) 40 mg SC 0900 [facility] Last Admin: 10/16/19 09:32 Dose: 40 mg Furosemide (Lasix) 40 mg SLOW IVP 0600,1400 [facility] Last Admin: 10/16/19 14:39 Dose: 40 mg Glucagon (Glucagon) 1 mg IM PRN PRN PRN Reason: Hypoglycemia Dextrose/Water (D5w) 1,000 mls @ 0 mls/hr IV .Q0M PRN PRN Reason: Hypoglycemia Clindamycin Phosphate/Dextrose (900 mg/ Device) 50 mls @ 100 mls/hr IVPB Q8H [facility] Last Admin: 10/16/19 12:31 Dose: 50 mls Insulin Human Regular (Humulin R) 0 units SC .MILD SLIDING SCALE PRN PRN Reason: Mild Correctional Scale Last Admin: 10/16/19 12:28 Dose: 4 unit Insulin Human Regular (Humulin R) 0 units SC .BEDTIME SLIDING SC PRN PRN Reason: Bedtime Correctional Scale Last Admin: 10/15/19 20:14 Dose: 3 unit Levothyroxine Sodium (Synthroid) 50 mcg PO 0600 [facility] Last Admin: 10/16/19 06:21 Dose: 50 mcg Lisinopril (Zestril) 10 mg PO DAILY [facility] Loratadine (Claritin) 10 mg PO DAILYPRN PRN PRN Reason: Allergies Meclizine HCl (Antivert) 25 mg PO BIDPRN PRN PRN Reason: Dizziness Metformin HCl (Glucophage) 1,000 mg PO BID-[facility] Last Admin: 10/16/19 17:58 Dose: 1,000 mg Naproxen (Naprosyn) 500 mg PO BID-[facility] Last Admin: 10/16/19 18:07 Dose: 500 mg Nystatin (Mycostatin Powder) 0 gm TOP BID PRN PRN Reason: Topical Irritations Sodium Chloride (Flush - Normal Saline) 10 ml IVF Q12HR [facility] Last Admin: 10/16/19 09:46 Dose: 10 ml Sodium Chloride (Flush - Normal Saline) 10 ml IVF PRN PRN PRN Reason: Saline Flush Tamsulosin HCl (Flomax) 0.4 mg PO DAILY [facility] Last Admin: 10/16/19 09:32 Dose: 0.4 mg Vital Signs & Weight: Vital Signs Temp Pulse Resp BP Pulse Ox 10/16/19 16:00 97.4 F L 10/16/19 15:39 97 10/16/19 11:37 97.4 F L 96 23 H 116/63 95 10/16/19 09:31 93 L 10/16/19 08:00 98.7 F 91 26 H 143/78 H 93 L Weight 241 lb 9 oz - Physical Exam General: alert & oriented x3 HEENT: mucus membranes moist Neck: supple neck Cardiac: regular rate and rhythm, systolic murmur Lungs: clear to auscultation Neuro: grossly intact Abdomen: active bowel sounds Extremities: 1+ LE edema Skin: clear Musculoskeletal: no pain - Labs Result Diagrams: 10/16/19 04:13 10/16/19 04:13 Troponin/CKMB CK-MB (CK-2) 8.7 ng/mL (0-6.6) H* 10/12/19 15:44 Troponin I 0.046 ng/mL (< 0.028) H 10/12/19 22:51 - Telemetry Sinus rhythms and dysrhythmias: sinus rhythm - Assessment/Plan Assessment/Plan: 1. Acute on chronic systolic and diastolic heart failure. 2. Severe MR 3. Flail posterior mitral valve leaflet 4. EF at 50-55% on echo yesterday. PLAN: - Continue IV diuresis. - Will need Mitral valve repair. - Continue other meds. - Awaiting transfer for consideration of mitral valve repair in [facility].
[2019-10-16] MEDS: Meclizine HCl 25 MG TAB PO PRN (20:53)
[2019-10-17 03:33] LABS: #Basophils 0.1 thou/uL (0.0-0.2); #Eosinphils 0.4 thou/uL (0.0-0.7); #Lymphocytes 1.7 thou/uL (1.20-3.40); #Monocytes 1.2 thou/uL (0.11-0.59); %Basophils 0.3 % (0.0-1.0); %Eosinophils 3.1 % (0.0-10.0); %Lymphocytes 11.8 % (21.0-51.0); %Monocytes 8.6 % (0.0-10.0); %Neutrophils 76.3 % (42.0-75.0); Hemoglobin 11.5 g/dL (14.0-18.0); Mean Corpuscular HGB CONC 32.7 g/dL (32.0-36.0); Mean Corpuscular Hemoglobin 32.7 pg (27.0-31.0); Mean Platelet Volume 8.1 fL (7.4-10.4); Platelet Count 302 thou/uL (130-400); RBC Distribution Width 14.3 % (11.5-14.5); Red Blood Cell (RBC) Count 3.51 mill/uL (4.70-6.10); White Blood Cell (WBC) Count 14.5 thou/uL (4.8-10.8)
[2019-10-17 03:50] LABS: Anion Gap 18 mmol/L (10-20); Calcium 8.8 mg/dL (7.8-10.44); Carbon Dioxide 21 mmol/L (23-31); Chloride 97 mmol/L (98-107); Potassium 4.5 mmol/L (3.5-5.1); Sodium 131 mmol/L (136-145)
[2019-10-17 03:59] LABS: BUN (Urea Nitrogen) 29 mg/dL (8.4-25.7); Calc. Creatinine Clearance 84 mL/min (70-130); Estimated GFR-MDRD 61; Glucose 186 mg/dL (83-110)
[2019-10-17] MEDS: Clindamycin/D5W 900 MG in Premix Bag 1 BAG IVPB SCH ×3 (04:20→20:43)
--- NOTE | 2019-10-17 06:01 | PDOC.FM ---
- Subjective Subjective: Pt is doing better today. He tolerated no bipap yesterday or this morning but did place on bipap around 0600 just for supplementation. Nurses state he did not have tachypnea, dyspnea, or hypoxia. He is AAO x 2 but might be affected by apathy as he is incarcerated. - Objective Vital Signs & Weight: Vital Signs (12 hours) Temp 10/17/19 04:00 98.2 F 10/17/19 00:00 97.6 F 10/16/19 19:31 97.1 F L Weight Weight 109.571 kg Most Recent Monitor Data Heart Rate from ECG 81 NIBP 99/65 NIBP BP-Mean 76 Respiration from ECG 16 SpO2 94 I&O: 10/15/19 10/16/19 10/17/19 06:59 06:59 06:59 Intake Total 1170 460 290 Output Total 700 2090 1360 Balance 470 -4193 -1304 Result Diagrams: 10/17/19 03:07 10/17/19 03:07 Phys Exam - Physical Examination Constitutional: NAD HEENT: PERRLA, moist MMs Respiratory: no wheezing, no rales, clear to auscultation bilateral On bipap Cardiovascular: RRR, no significant murmur Gastrointestinal: soft, non-tender, no distention Musculoskeletal: no edema, pulses present Neurological: non-focal, normal sensation Psychiatric: normal affect Deviation from normal: AAO x 2 Skin: normal turgor, cap refill <2 seconds Dx/Plan (1) Hypothyroid Code(s): E03.9 - HYPOTHYROIDISM, UNSPECIFIED Status: Acute (2) Leukocytosis Code(s): D72.829 - ELEVATED WHITE BLOOD CELL COUNT, UNSPECIFIED Status: Acute (3) CHF (congestive heart failure) Code(s): I50.9 - HEART FAILURE, UNSPECIFIED Status: Acute (4) DM II (diabetes mellitus, type II), controlled Code(s): E11.9 - TYPE 2 DIABETES MELLITUS WITHOUT COMPLICATIONS Status: Acute (5) HTN (hypertension) Code(s): I10 - ESSENTIAL (PRIMARY) HYPERTENSION Status: Acute (6) Macrocytic anemia Code(s): D53.9 - NUTRITIONAL ANEMIA, UNSPECIFIED Status: Acute (7) Mitral valve anterior leaflet prolapse Code(s): I34.1 - NONRHEUMATIC MITRAL (VALVE) PROLAPSE Status: Acute - Plan Plan: 74 y/o male admitted for further treatment and workup of acute CHF exacerbation 1. Acute CHF exacerbation, HFrEF 2/2 mitral valve regurgitation - continue diuresis - FREDDY in 02/2019: ruptured chordae of anterior leaflet MV prolapse with severe MR. biatrial enlargement, RV dilation with decreased RV function. EF 35-40%. - TTE 10/14/19: EF 50-55% - CXR RLL atelectais - CTA chest: R sided pleural effusion, no PE. D-dimer 2.49 - BNP 570 - Fluid restrict <1800 mL daily, daily weights, strict I/O. - IV 40 mg lasix BID - Cardiology consulted - If pt would like to have valve repair will need to be transferred for procedure as we do not do this at our facility, cards does not believe he is a great candidate for procedure due to depressed EF, also believe he is non-compliant complicating exacerbations. - Waiting for [facility] to call for acceptance. - Will transfer to [facility] from [facility]. 2. Indeterminate troponin levels - stable - Trop 0.058 indeterminate, denies chest pain. - EKG: Sinus, rate 99, no ST elevations or depressions. - Most likely 2/2 volume overload and stretching of myocytes 3. FABIAN, Cardiorenal Syndrome - stable - Cr 1.41 -> 1.08 -> 1.16. Pt likely intravascularly depleted. Will consider decreasing lasix/transitioning to oral. - Cr 1.13 last week. - continue lasix 40 IV BID, will monitor QAM for improvement. 4. R sided Pleural effusion - stable - monitor 5. hx of DM II - a1c 8.6 - continue metformin 1000 mg BID, SSI, Qachs accuchecks. 6. Hx of HTN - pt only on lasix Po 20 mg BID at home - will monitor and optimize therapy. 7. Hx of hypothyroidism Subtherapeutic. - start levothyroxine 50 mcg. Recheck in the outpt setting for appropriate titration. 8. Macrocytic anemia - Iron, ITBC are low. ferritin WNL. - B12 WNL, folate borderline although this was not an RBC folate. 9. Cellulitis R Groin - improving - d/c azithro, ceftriaxone - continue clindamycin, nystatin powder, d/c diflucan 10. Urinary Retention - start flomax - straight cath this morning. 11. Decreased Mentation 12. Tachypnea - improved. transfer back from tele 13. Undiagnosed NELSON - preferred for pt to be on cpap overnight. Likely contributed to his AMS yesterday. Code status: full code diet: HH, CC, <1800 mL daily fluid restriction dvt ppx: lovenox Dispo: transfer to [facility], pending transfer to [facility]
[2019-10-17] MEDS: Furosemide 40 MG/4 ML VIAL SLOW IVP SCH ×2 (06:26→12:53)
[2019-10-17] MEDS: Levothyroxine Sodium 50 MCG TAB PO SCH (06:26)
[2019-10-17] MEDS: Insulin Regular 300 UNITS/3 ML VIAL SC PRN ×3 (06:30→22:09)
[2019-10-17] MEDS: Enoxaparin Sodium 40 MG/0.4 ML SYRINGE SC SCH (09:19)
[2019-10-17] MEDS: Lisinopril 10 MG TAB PO SCH (09:21)
[2019-10-17] MEDS: Tamsulosin HCl 0.4 MG CAP PO SCH (09:21)
[2019-10-17] MEDS: metFORMIN 500 MG TAB PO SCH ×2 (09:21→17:14)
[2019-10-17] MEDS: Aspirin 81 mg Enteric Coated Tablet PO SCH (09:21)
[2019-10-17] MEDS: Acetaminophen 325 MG TAB PO SCH ×3 (09:53→20:43)
--- NOTE | 2019-10-17 10:34 | CON ---
DATE OF CONSULTATION: 10/17/2019 CONSULTING PHYSICIAN: [facility]. REASON FOR CONSULTATION: Use of BiPAP for respiratory failure. HISTORY OF PRESENT ILLNESS: The patient is a 74-year-old prisoner who presented to the hospital on 10/12 in congestive heart failure from severe systolic heart failure and mitral regurgitation. His EF is about 35% to 40%. Last night he was brought to the [facility] and placed on BiPAP for increasing shortness of breath. I was able to get him off the BiPAP this morning. PAST MEDICAL HISTORY: 1. Hypertension. 2. Diabetes mellitus type 2. 3. 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 4. Coronary artery disease. 5. Osteoarthritis. 6. Vitamin B12 deficiency. 7. Hypothyroidism. 8. Gastroesophageal reflux. PAST SURGICAL HISTORY: 1. Appendectomy. 2. Tonsillectomy. 3. Back surgery. 4. Coronary stenting. FAMILY MEDICAL HISTORY: Remarkable for stroke. SOCIAL HISTORY: Nonsmoker, but did smoke in the past. Does not consume alcohol. He has been in half-way for quite some time. CURRENT INPATIENT MEDICATIONS: 1. Ecotrin. 2. Tegretol. 3. Lovenox. 4. Lasix. 5. Synthroid. 6. Zestril. 7. Claritin. 8. Antivert. 9. Glucophage. 10. Naprosyn. 11. Mycostatin powder. 12. Tamsulosin. PHYSICAL EXAMINATION: VITAL SIGNS: Temperature 98.2, pulse 88, blood pressure 122/81, O2 saturation 99%. GENERAL: He is currently resting comfortably, in no acute distress. HEENT: Unremarkable. NECK: No adenopathy or JVD. LUNGS: He has inspiratory crackles in both bases. CARDIOVASCULAR: S1-S2 regular with 3/6 holosystolic murmur. ABDOMEN: Soft and nontender. EXTREMITIES: No clubbing, cyanosis, or edema. His chest x-ray does not show much in the way of heart failure, although his right diaphragm is slightly elevated compared to left. LABORATORY DATA: White blood cell count 14.5, hematocrit 35, and platelet count 302. ABGs; pH of 7.47, pCO2 of 34, pO2 of 72 on room air. Sodium 131, potassium 4.5, chloride 97, CO2 of 21, BUN 29, creatinine 1.2, glucose 186. ASSESSMENT: 1. Severe systolic dysfunction with mitral regurgitation. 2. Current time I do not find him hypoxic or in respiratory failure. PLAN: I would go ahead and stop the BiPAP and observe him. Continue IV diuretics as you are doing. Job ID: [id number]
--- NOTE | 2019-10-17 12:37 | PRG ---
DATE OF SERVICE: 10/17/2019 ADDENDUM: This is an addendum to the note of Dr. Maik Cain. Mr. Soto is slightly better this morning. He is not quite as air hungry as he was yesterday on the floor. He has also been seen this morning by Dr. Young and we feel it is safe to transfer him back to a telemetry bed. We have still had no word from [facility] regarding his transfer for valve repair. We will continue to monitor him and treat him medically. Job ID: [id number]
--- NOTE | 2019-10-17 14:07 | PDOC.CPN ---
- Subjective Date: 10/17/19 Time: 14:04 Interval history: No new issues. Using BiPAP at night only. - Review of Systems General: denies: fever/chills, weight/appetite/sleep changes, night sweats, fatigue Respiratory: reports: shortness of breath. denies: cough, congestion, exercise intolerance Cardiovascular: reports: edema. denies: chest pain, palpitation, paroxysmal nocturnal dyspnea, orthopnea Gastrointestinal: denies: nausea, vomiting, diarrhea, constipation, abd pain, GI bleeding Musculoskeletal: denies: pain, tenderness, stiffness, swelling, arthritis/ arthralgias Neurological: denies: numbness, syncope, seizure, weakness - Objective Allergies/Adverse Reactions: Allergies Allergy/AdvReac Type Severity Reaction Status Date / Time No Known Allergies Allergy Verified 10/12/19 22:31 Visit Medications: Current Medications Acetaminophen (Tylenol) 650 mg PO TID [facility] Last Admin: 10/17/19 09:53 Dose: 650 mg Aspirin (Ecotrin) 81 mg PO DAILY [facility] Last Admin: 10/17/19 09:21 Dose: 81 mg Carbamazepine (Tegretol Xr) 600 mg PO DAILY [facility] Last Admin: 10/17/19 09:20 Dose: 600 mg Dextrose/Water (Dextrose 50%) 25 gm SLOW IVP PRN PRN PRN Reason: Hypoglycemia Diphenhydramine HCl (Benadryl) 25 mg PO TIDPRN PRN PRN Reason: ALLERGIES/ITCHING Enoxaparin Sodium (Lovenox) 40 mg SC 0900 [facility] Last Admin: 10/17/19 09:19 Dose: 40 mg Furosemide (Lasix) 40 mg SLOW IVP 0600,1400 [facility] Last Admin: 10/17/19 12:53 Dose: 40 mg Glucagon (Glucagon) 1 mg IM PRN PRN PRN Reason: Hypoglycemia Dextrose/Water (D5w) 1,000 mls @ 0 mls/hr IV .Q0M PRN PRN Reason: Hypoglycemia Clindamycin Phosphate/Dextrose (900 mg/ Device) 50 mls @ 100 mls/hr IVPB Q8H [facility] Last Admin: 10/17/19 12:53 Dose: 50 mls Insulin Human Regular (Humulin R) 0 units SC .MILD SLIDING SCALE PRN PRN Reason: Mild Correctional Scale Last Admin: 10/17/19 12:34 Dose: 5 unit Insulin Human Regular (Humulin R) 0 units SC .BEDTIME SLIDING SC PRN PRN Reason: Bedtime Correctional Scale Last Admin: 10/16/19 21:26 Dose: 3 unit Levothyroxine Sodium (Synthroid) 50 mcg PO 0600 [facility] Last Admin: 10/17/19 06:26 Dose: 50 mcg Lisinopril (Zestril) 10 mg PO DAILY [facility] Last Admin: 10/17/19 09:21 Dose: 10 mg Loratadine (Claritin) 10 mg PO DAILYPRN PRN PRN Reason: Allergies Meclizine HCl (Antivert) 25 mg PO BIDPRN PRN PRN Reason: Dizziness Last Admin: 10/16/19 20:53 Dose: 25 mg Metformin HCl (Glucophage) 1,000 mg PO BID-[facility] Last Admin: 10/17/19 09:21 Dose: 1,000 mg Naproxen (Naprosyn) 500 mg PO BID-[facility] Last Admin: 10/16/19 18:07 Dose: 500 mg Nystatin (Mycostatin Powder) 0 gm TOP BID PRN PRN Reason: Topical Irritations Sodium Chloride (Flush - Normal Saline) 10 ml IVF Q12HR [facility] Last Admin: 10/17/19 09:21 Dose: 10 ml Sodium Chloride (Flush - Normal Saline) 10 ml IVF PRN PRN PRN Reason: Saline Flush Tamsulosin HCl (Flomax) 0.4 mg PO DAILY [facility] Last Admin: 10/17/19 09:21 Dose: 0.4 mg Vital Signs & Weight: Vital Signs Temp Pulse Resp Pulse Ox 10/17/19 07:43 95 10/17/19 07:00 97.6 F 10/17/19 06:30 83 21 H 100 10/17/19 04:00 98.2 F Weight 248 lb 8 oz - Physical Exam General: appears well HEENT: mucus membranes moist Neck: supple neck Cardiac: regular rate and rhythm Lungs: clear to auscultation Neuro: grossly intact Abdomen: active bowel sounds Extremities: 1+ LE edema Skin: clear Musculoskeletal: no pain - Labs Result Diagrams: 10/17/19 03:07 10/17/19 03:07 Troponin/CKMB CK-MB (CK-2) 8.7 ng/mL (0-6.6) H* 10/12/19 15:44 Troponin I 0.046 ng/mL (< 0.028) H 10/12/19 22:51 - Telemetry Sinus rhythms and dysrhythmias: sinus rhythm - Assessment/Plan Assessment/Plan: 1. Acute on chronic systolic and diastolic heart failure. 2. Severe MR 3. Flail posterior mitral valve leaflet 4. EF at 50-55% on echo yesterday. PLAN: - Continue IV diuresis. - Will need Mitral valve repair. - Continue other meds. - Awaiting transfer for consideration of mitral valve repair in [facility].
--- NOTE | 2019-10-17 14:32 | PDOC.EVN ---
Event Note - Event Note Event Note: Resident team alerted patient's blood pressures were 60/40's at 1405, pulse 85, 96% O2 saturation, decreased mentation. He had just been given lasix 40 mg IV, pt lying on side when episode was precipitated. Upon inspection he was at baseline, AAO x [address], with pressures ~ 90's/60's in Trendelenburg. 18 gauge placed in R arm, garcia catheter placed for urinary retention with 250 mls evacuated. He was taken out of Trendelenburg and pressures remained stable. Pt denied chest pain, fevers, chills, increasing shortness of breath. NS 500 ml bolus, BMP, CBC, troponin, and ABG obtained. MD Maik Kochman, DO 10/17/19 1430
[2019-10-17 14:35] LABS: Actual Bicarbonate (HCO3a) 27.5 mEq/L (22-28); Base Excess (BEa) 3.2 mEq/L (-2.0 to +3.0); CO2 Tension 40.8 mmHg (35.0-45.0); Calcium, Ionized 1.11 mmol/L (1.12-1.30); Carboxyhemoglobin (COHb) 1.4 gm% (0.0-3.0); Hemoglobin (Hb) 11.1 g/dL (14.0-18.0); Potassium - ABG Lab 3.47 mmol/L (3.70-5.30); pH, Arterial 7.45 (7.35-7.45)
[2019-10-17 14:37] LABS: Puncture Site RRAD
[2019-10-17 15:16] LABS: Hemoglobin 12.3 g/dL (14.0-18.0); Mean Corpuscular HGB CONC 31.9 g/dL (32.0-36.0); Mean Corpuscular Hemoglobin 31.3 pg (27.0-31.0); Mean Corpuscular Volume 98.1 fL (78.0-98.0); Mean Platelet Volume 7.1 fL (7.4-10.4); Platelet Count 355 thou/uL (130-400); RBC Distribution Width 14.2 % (11.5-14.5); Red Blood Cell (RBC) Count 3.92 mill/uL (4.70-6.10); White Blood Cell (WBC) Count 13.4 thou/uL (4.8-10.8)
[2019-10-17 15:34] LABS: Anion Gap 18 mmol/L (10-20); BUN (Urea Nitrogen) 28 mg/dL (8.4-25.7); Band 9 % (5-11); Burr Cells SLIGHT = 2-5 cells (100X) (0-1/hpf); Calc. Creatinine Clearance 86 mL/min (70-130); Carbon Dioxide 24 mmol/L (23-31); Chloride 96 mmol/L (98-107); Eosinophils 1 % (0-10); Estimated GFR-MDRD 61; Glucose 207 mg/dL (83-110); Lymphocytes 6 % (21-51); MDiff Complete? YES; Metamyelocyte 1 % (0-0); Monocytes 9 % (0-10); Neutrophil 74 % (42-75); Platelet Morphology Comment Appears Adequate; Polychromasia SLIGHT = 2-3 cells (100X) (0-2/hpf); Sodium 134 mmol/L (136-145); Spherocytes SLIGHT = 1-5 cells (100X) (None Seen); Toxic Granulation SLIGHT; Vacuoles SLIGHT
[2019-10-17 15:57] LABS: Troponin I 0.056 ng/mL (< 0.028)
[2019-10-17] MEDS: Naproxen 500 MG TAB PO SCH (17:16)
[2019-10-18 03:53] LABS: #Basophils 0.1 thou/uL (0.0-0.2); #Eosinphils 0.3 thou/uL (0.0-0.7); #Lymphocytes 1.4 thou/uL (1.20-3.40); #Neutrophils 9.5 thou/uL (1.40-6.50); %Basophils 0.6 % (0.0-1.0); %Eosinophils 2.7 % (0.0-10.0); %Lymphocytes 11.4 % (21.0-51.0); %Monocytes 7.7 % (0.0-10.0); %Neutrophils 77.6 % (42.0-75.0); Hemoglobin 11.3 g/dL (14.0-18.0); Mean Corpuscular HGB CONC 32.5 g/dL (32.0-36.0); Mean Corpuscular Hemoglobin 31.8 pg (27.0-31.0); Mean Corpuscular Volume 97.8 fL (78.0-98.0); Mean Platelet Volume 7.2 fL (7.4-10.4); Platelet Count 359 thou/uL (130-400); RBC Distribution Width 14.4 % (11.5-14.5); Red Blood Cell (RBC) Count 3.55 mill/uL (4.70-6.10); White Blood Cell (WBC) Count 12.3 thou/uL (4.8-10.8)
[2019-10-18] MEDS: Clindamycin/D5W 900 MG in Premix Bag 1 BAG IVPB SCH ×3 (04:00→20:01)
[2019-10-18 04:13] LABS: Anion Gap 15 mmol/L (10-20); BUN (Urea Nitrogen) 30 mg/dL (8.4-25.7); Calc. Creatinine Clearance 86 mL/min (70-130); Calcium 8.9 mg/dL (7.8-10.44); Carbon Dioxide 26 mmol/L (23-31); Chloride 95 mmol/L (98-107); Estimated GFR-MDRD 61; Glucose 210 mg/dL (83-110); Potassium 3.9 mmol/L (3.5-5.1); Sodium 132 mmol/L (136-145)
--- NOTE | 2019-10-18 05:42 | PDOC.FM ---
- Subjective Subjective: Pt is doing well today. He had no overnight events. He denies worsening shortness of breath. Continues with lower extremity pain which has been present for a year. He denies fever, chills. - Objective Vital Signs & Weight: Vital Signs (12 hours) Temp 10/18/19 03:43 97.8 F 10/17/19 23:45 98.1 F 10/17/19 20:00 97.9 F Weight Weight 112.718 kg Most Recent Monitor Data Heart Rate from ECG 92 NIBP 91/54 NIBP BP-Mean 66 Respiration from ECG 20 SpO2 97 I&O: 10/16/19 10/17/19 10/18/19 06:59 06:59 06:59 Intake Total 840 042 6599 Output Total 9845 2220 0643 Balance -1630 -1070 -1992 Result Diagrams: 10/18/19 03:29 10/18/19 03:29 Phys Exam - Physical Examination Constitutional: NAD HEENT: PERRLA, moist MMs Neck: no JVD, full ROM Respiratory: no wheezing, no rhonchi, clear to auscultation bilateral Cardiovascular: RRR, no significant murmur Gastrointestinal: soft, no distention, positive bowel sounds Musculoskeletal: no edema, pulses present Neurological: non-focal, normal sensation Psychiatric: normal affect Skin: no rash, cap refill <2 seconds Dx/Plan (1) Hypothyroid Code(s): E03.9 - HYPOTHYROIDISM, UNSPECIFIED Status: Acute (2) Leukocytosis Code(s): D72.829 - ELEVATED WHITE BLOOD CELL COUNT, UNSPECIFIED Status: Acute (3) CHF (congestive heart failure) Code(s): I50.9 - HEART FAILURE, UNSPECIFIED Status: Acute (4) DM II (diabetes mellitus, type II), controlled Code(s): E11.9 - TYPE 2 DIABETES MELLITUS WITHOUT COMPLICATIONS Status: Acute (5) HTN (hypertension) Code(s): I10 - ESSENTIAL (PRIMARY) HYPERTENSION Status: Acute (6) Macrocytic anemia Code(s): D53.9 - NUTRITIONAL ANEMIA, UNSPECIFIED Status: Acute (7) Mitral valve anterior leaflet prolapse Code(s): I34.1 - NONRHEUMATIC MITRAL (VALVE) PROLAPSE Status: Acute - Plan Plan: 74 y/o male admitted for further treatment and workup of acute CHF exacerbation 1. Acute CHF exacerbation, HFrEF 2/2 mitral valve regurgitation - continue diuresis - FREDDY in 02/2019: ruptured chordae of anterior leaflet MV prolapse with severe MR. biatrial enlargement, RV dilation with decreased RV function. EF 35-40%. - TTE 10/14/19: EF 50-55% - CXR RLL atelectais - CTA chest: R sided pleural effusion, no PE. D-dimer 2.49 - BNP 570 - Fluid restrict <1800 mL daily, daily weights, strict I/O. - IV 40 mg lasix BID - Cardiology consulted - If pt would like to have valve repair will need to be transferred for procedure as we do not do this at our facility, cards does not believe he is a great candidate for procedure due to depressed EF, also believe he is non-compliant complicating exacerbations. - Waiting for [facility] to call for acceptance. - Will transfer from [facility] to [facility] - No overnight events, diuresed 2 L 2. Indeterminate troponin levels - stable - Trop 0.058 indeterminate, denies chest pain. - EKG: Sinus, rate 99, no ST elevations or depressions. - Most likely 2/2 volume overload and stretching of myocytes 3. FABIAN, Cardiorenal Syndrome - stable - d/c lasix as he is likely 4. R sided Pleural effusion - stable - monitor 5. hx of DM II - a1c 8.6 - continue metformin 1000 mg BID, SSI, Qachs accuchecks. 6. Hx of HTN - pt only on lasix Po 20 mg BID at home - will monitor and optimize therapy. 7. Hx of hypothyroidism Subtherapeutic. - start levothyroxine 50 mcg. Recheck in the outpt setting for appropriate titration. 8. Macrocytic anemia - Iron, ITBC are low. ferritin WNL. - B12 WNL, folate borderline although this was not an RBC folate. 9. Cellulitis R Groin - improving - d/c azithro, ceftriaxone - continue clindamycin, nystatin powder, d/c diflucan 10. Urinary Retention - start flomax - straight cath this morning. 11. Decreased Mentation 12. Tachypnea - improved. transfer back from [facility] 13. Undiagnosed NELSON - preferred for pt to be on cpap overnight. Likely contributed to his AMS yesterday. Code status: full code diet: HH, CC, <1800 mL daily fluid restriction dvt ppx: lovenox Dispo: transfer to tele, pending transfer to [facility]
[2019-10-18] MEDS: Levothyroxine Sodium 50 MCG TAB PO SCH (06:19)
[2019-10-18] MEDS: Insulin Regular 300 UNITS/3 ML VIAL SC PRN ×2 (06:19→20:32)
[2019-10-18] MEDS: Meclizine HCl 25 MG TAB PO PRN (06:19)
[2019-10-18] MEDS ORDERED: Ondansetron ODT 4 MG TAB PO PRN (06:47)
[2019-10-18] MEDS: Ondansetron PF 4 MG/2 ML Vial IVP PRN (07:09)
[2019-10-18] MEDS: Naproxen 500 MG TAB PO SCH (08:53)
[2019-10-18] MEDS: metFORMIN 500 MG TAB PO SCH ×2 (08:53→17:49)
[2019-10-18] MEDS: Tamsulosin HCl 0.4 MG CAP PO SCH (08:54)
[2019-10-18] MEDS: Enoxaparin Sodium 40 MG/0.4 ML SYRINGE SC SCH (08:54)
[2019-10-18] MEDS: Furosemide 20 MG TAB PO SCH ×2 (08:54→13:19)
[2019-10-18] MEDS: Acetaminophen 325 MG TAB PO SCH ×2 (08:54→17:48)
[2019-10-18] MEDS: Aspirin 81 mg Enteric Coated Tablet PO SCH (08:54)
[2019-10-18] MEDS: Lisinopril 10 MG TAB PO SCH (08:54)
[2019-10-18] MEDS: Insulin Glargine 5 UNITS in Pre-Filled Syringe 1 EACH SC SCH (08:55)
--- NOTE | 2019-10-18 09:38 | PRG ---
DATE OF SERVICE: 10/18/2019 SUBJECTIVE: Mr. Soto is doing okay. No chest pain or pressure. No shortness of breath. OBJECTIVE: VITAL SIGNS: Blood pressure 105/60, pulse is 83. LUNGS: Clear. CARDIAC: Normal S1 and normal S2. No new murmur, rub, or gallop. ABDOMEN: Soft and nontender. EXTREMITIES: No edema. ASSESSMENT: 1. Mitral regurgitation, severe. 2. Congestive heart failure, stable. PLAN: 1. The patient is being maintained on furosemide intravenously up until yesterday, now is on oral furosemide. 2. Awaiting transportation to [place] for mitral valve repair. 3. I would stop Naprosyn in view of congestive heart failure with problems of fluid retention. Job ID: [id number]
--- NOTE | 2019-10-18 11:50 | PRG ---
DATE OF SERVICE: 10/18/2019 SUBJECTIVE: The patient is doing reasonably well, has no acute complaints. Not wearing BiPAP. OBJECTIVE: VITAL SIGNS: Temperature is 96.5, pulse 103, blood pressure 118/87, O2 saturation 91%. HEENT: Unremarkable. NECK: No adenopathy or JVD. CHEST: Fairly clear anteriorly. CARDIAC: S1, S2. Regular. ABDOMEN: Soft. EXTREMITIES: No edema. LABORATORY DATA: White blood cell count 12.3, hematocrit 34.7, and platelet count 359. Sodium 132, potassium 3.9, chloride 95, CO2 of 26, BUN 30, creatinine 1.2, and glucose 210. ASSESSMENT: Severe systolic dysfunction with mitral regurgitation. PLAN: The patient is stable for transfer back out to the floor. Eventually, needs to have his mitral valve repaired. No further Pulmonary recommendations. We will sign off. Job ID: [id number]
[2019-10-18] MEDS ORDERED: Lidocaine 1% w/Epinephrine 1:100K 20 ML VIAL ONE (16:54)
--- NOTE | 2019-10-18 19:08 | PDOC.BPN ---
<Maik Cain - Last Filed: 10/18/19 18:57> - Brief Progress Note PRE-OP DIAGNOSIS: Abscess, Cellulitis POST-OP DIAGNOSIS: Same PROCEDURE: incision and drainage of abscess Performing Physician: Dr. Cain Supervising Physician: Dr. Amador PROCEDURE: A timeout protocol was performed prior to initiating the procedure. The area was prepared and cleaned in the usual, sterile manner. The site was anesthetized with 10 cc 1% lidocaine with epinephrine. A linear 2 cm incision along the local skin lines was made and the purulent material expressed. The abcess was explored thoroughly and sequestered pockets were opened. The abscess tracked deep and further posteriorly than visualized on pre-procedure visual exam which was covered by a thick area of induration. Abscess was packed. Bleeding was minimal. Followup: The patient tolerated the procedure well without complications. Standard post-procedure care is explained and will follow closely in the coming days. <Jeff Amador - Last Filed: 10/19/19 08:28> Addendum - Attending - Attending Attestation Date/Time: 10/19/19826 I was present for the entire procedure. Monitor clinically, may need repeat procedure, although drained as much as patient would tolerate. See above discussion.
[2019-10-19] MEDS: Acetaminophen 325 MG TAB PO SCH ×4 (03:32→20:55)
[2019-10-19 03:54] LABS: #Eosinphils 0.3 thou/uL (0.0-0.7); #Lymphocytes 1.3 thou/uL (1.20-3.40); #Monocytes 0.8 thou/uL (0.11-0.59); #Neutrophils 8.6 thou/uL (1.40-6.50); %Basophils 0.3 % (0.0-1.0); %Eosinophils 2.8 % (0.0-10.0); %Lymphocytes 11.9 % (21.0-51.0); %Monocytes 7.6 % (0.0-10.0); %Neutrophils 77.5 % (42.0-75.0); Hemoglobin 11.4 g/dL (14.0-18.0); Mean Corpuscular HGB CONC 32.6 g/dL (32.0-36.0); Mean Corpuscular Hemoglobin 31.4 pg (27.0-31.0); Mean Corpuscular Volume 96.4 fL (78.0-98.0); Mean Platelet Volume 7.2 fL (7.4-10.4); Platelet Count 332 thou/uL (130-400); RBC Distribution Width 14.2 % (11.5-14.5); Red Blood Cell (RBC) Count 3.64 mill/uL (4.70-6.10); White Blood Cell (WBC) Count 11.1 thou/uL (4.8-10.8)
[2019-10-19 04:05] LABS: Anion Gap 16 mmol/L (10-20); BUN (Urea Nitrogen) 25 mg/dL (8.4-25.7); Calc. Creatinine Clearance 97 mL/min (70-130); Carbon Dioxide 25 mmol/L (23-31); Chloride 97 mmol/L (98-107); Estimated GFR-MDRD 72; Glucose 160 mg/dL (83-110); Sodium 134 mmol/L (136-145)
[2019-10-19] MEDS: Clindamycin/D5W 900 MG in Premix Bag 1 BAG IVPB SCH ×3 (04:29→19:49)
--- NOTE | 2019-10-19 05:56 | PDOC.FM ---
- Subjective Subjective: Pt is doing well today. He is unchanged from his previous mentation. His R groin is not painful for him. He denies fever, chills, worsening sob. - Objective Vital Signs & Weight: Vital Signs (12 hours) Temp Pulse Ox 10/19/19 03:23 98.5 F 10/19/19 00:58 94 L 10/18/19 23:14 97.7 F 10/18/19 19:31 99 10/18/19 19:28 97.6 F Weight Weight 109.854 kg Most Recent Monitor Data Heart Rate from ECG 90 NIBP 141/78 NIBP BP-Mean 99 Respiration from ECG 22 SpO2 98 I&O: 10/17/19 10/18/19 10/19/19 06:59 06:59 06:59 Intake Total 690 1830 Output Total 1760 3643 Balance -1070 -1813 Result Diagrams: 10/19/19 03:36 10/19/19 03:36 Phys Exam - Physical Examination Constitutional: NAD HEENT: PERRLA, moist MMs Neck: no JVD, full ROM Respiratory: no wheezing, clear to auscultation bilateral Cardiovascular: RRR, no significant murmur Gastrointestinal: soft, non-tender, no distention, positive bowel sounds Musculoskeletal: no edema, pulses present Neurological: non-focal, moves all 4 limbs Psychiatric: normal affect, A&O x 3 Dx/Plan (1) Hypothyroid Code(s): E03.9 - HYPOTHYROIDISM, UNSPECIFIED Status: Acute (2) Leukocytosis Code(s): D72.829 - ELEVATED WHITE BLOOD CELL COUNT, UNSPECIFIED Status: Acute (3) CHF (congestive heart failure) Code(s): I50.9 - HEART FAILURE, UNSPECIFIED Status: Acute (4) DM II (diabetes mellitus, type II), controlled Code(s): E11.9 - TYPE 2 DIABETES MELLITUS WITHOUT COMPLICATIONS Status: Acute (5) HTN (hypertension) Code(s): I10 - ESSENTIAL (PRIMARY) HYPERTENSION Status: Acute (6) Macrocytic anemia Code(s): D53.9 - NUTRITIONAL ANEMIA, UNSPECIFIED Status: Acute (7) Mitral valve anterior leaflet prolapse Code(s): I34.1 - NONRHEUMATIC MITRAL (VALVE) PROLAPSE Status: Acute - Plan Plan: 74 y/o male admitted for further treatment and workup of acute CHF exacerbation # Acute CHF exacerbation, HFrEF 2/2 mitral valve regurgitation - continue diuresis - FREDDY in 02/2019: ruptured chordae of anterior leaflet MV prolapse with severe MR. biatrial enlargement, RV dilation with decreased RV function. EF 35-40%. - TTE 10/14/19: EF 50-55% - CXR RLL atelectais - CTA chest: R sided pleural effusion, no PE. D-dimer 2.49 - BNP 570 - Fluid restrict <1800 mL daily, daily weights, strict I/O. - IV 40 mg lasix BID - Cardiology consulted - If pt would like to have valve repair will need to be transferred for procedure as we do not do this at our facility, cards does not believe he is a great candidate for procedure due to depressed EF, also believe he is non-compliant complicating exacerbations. - Waiting for [facility] to call for acceptance. - Will hold in IMCU at this time # Abscess/Cellulitis R Groin Large abscess I&D yesterday alleviating 150 cc of fluid, abscess covered by indurated region opened up revealing abscess which extended posteriorly and deep compared to what was seen on visual exam. Region appeared to be healing well until it opened on the surface. Abscess was packed. Region did not appear necrotic and did not appreciate crepitus. Will consult surgery to address if another procedure needs to be performed. Bedside I&D performed as the extent of the abscess was not apparent on visual exam and pt benefit vs risk was weighed when assessing. - continue abx # Urinary Retention - start flomax - garcia in place # Indeterminate troponin levels - stable - Trop 0.058 indeterminate, denies chest pain. - EKG: Sinus, rate 99, no ST elevations or depressions. - Most likely 2/2 volume overload and stretching of myocytes # FABIAN, Cardiorenal Syndrome - stable - d/c lasix as he is likely # R sided Pleural effusion - stable - monitor # hx of DM II - a1c 8.6 - continue metformin 1000 mg BID, SSI, Qachs accuchecks. Add Lantus 5 # Hx of HTN - pt only on lasix Po 20 mg BID at home - will monitor and optimize therapy. # Hx of hypothyroidism Subtherapeutic. - start levothyroxine 50 mcg. Recheck in the outpt setting for appropriate titration. # Macrocytic anemia - Iron, ITBC are low. ferritin WNL. - B12 WNL, folate borderline although this was not an RBC folate. Code status: full code diet: HH, CC, <1800 mL daily fluid restriction dvt ppx: lovenox Dispo: transfer to [facility], pending transfer to [facility]
[2019-10-19] MEDS: Insulin Regular 300 UNITS/3 ML VIAL SC PRN (06:20)
[2019-10-19] MEDS: Levothyroxine Sodium 50 MCG TAB PO SCH (06:22)
--- NOTE | 2019-10-19 09:07 | PRG ---
DATE OF SERVICE: 10/19/2019 SUBJECTIVE: Mr. Soto is doing fine today. No chest pain or pressure. No shortness of breath. OBJECTIVE: VITAL SIGNS: Blood pressure 138/80, pulse 80. LUNGS: Clear. CARDIAC: Normal S1, normal S2. ABDOMEN: Soft, nontender. EXTREMITIES: No edema. ASSESSMENT AND PLAN: Severe mitral regurgitation. Waiting transfer for [place]. No other changes at this time. Naprosyn stopped yesterday. Job ID: [id number]
[2019-10-19] MEDS: Enoxaparin Sodium 40 MG/0.4 ML SYRINGE SC SCH (09:47)
[2019-10-19] MEDS: Lisinopril 10 MG TAB PO SCH (09:47)
[2019-10-19] MEDS: Polyethylene Glycol 3350 17 GM Packet PO SCH (09:47)
[2019-10-19] MEDS: Furosemide 20 MG TAB PO SCH ×2 (09:47→14:58)
[2019-10-19] MEDS: Tamsulosin HCl 0.4 MG CAP PO SCH (09:47)
[2019-10-19] MEDS: Aspirin 81 mg Enteric Coated Tablet PO SCH (09:47)
[2019-10-19] MEDS: metFORMIN 500 MG TAB PO SCH ×2 (09:47→15:59)
[2019-10-19] MEDS: Insulin Glargine 5 UNITS in Pre-Filled Syringe 1 EACH SC SCH (09:48)
--- NOTE | 2019-10-19 17:18 | PRG ---
DATE OF SERVICE: 10/18/2019 ADDENDUM: This as an addendum to the note of Dr. Maik Cain. Mr. Soto is sitting quietly in bed, in no distress. He states that he is not short of breath. He did have an episode of hypotension this morning that was corrected by changing his body position. He is currently hemodynamically stable. We did have to place a Green because of another episode of significant urinary retention. This morning, hemoglobin is 11.3, hematocrit 34.7. Sodium is 132, potassium 3.9, chloride 95, bicarb 26, BUN 30, creatinine 1.17. We are still awaiting bed placement at [facility] for mitral valve repair replacement. Job ID: [id number]
--- NOTE | 2019-10-19 17:53 | PRG ---
DATE OF SERVICE: 10/19/2019 ADDENDUM: Addendum to the note of Dr. Maik Cain. This morning, Mr. Soto is resting in bed quietly, in no distress. He claims he is not short of breath or having any chest discomfort. We are still awaiting input and transfer to [facility] for his mitral valve disease. We will continue to follow with Cardiology. Mr. Soto's cellulitis of his right groin formed into an abscess, which spontaneously drained yesterday. The wound was further I and D'd and a packing was placed. It is in the right upper thigh just beneath the perineum. Right now, he has no evidence of Juan Jose disease, but we will ask Surgery to assess the patient as well as the wound does run quite deep. We will continue on antibiotics as well. Job ID: [id number]
--- NOTE | 2019-10-19 19:50 | CON ---
DATE OF CONSULTATION: 10/19/2019 REASON FOR CONSULTATION: Examination of right 5 incision and drainage site. CHIEF COMPLAINT: "I am feeling okay." HISTORY OF PRESENT ILLNESS: The patient is a 74-year-old gentleman who was admitted to the hospital on October 12. He has a past medical history of type 2 diabetes, hypertension, and mitral valve prolapse. He has been complaining of several weeks of lower extremity pain that is crampy and intermittent. Pain became constant, which led him to be [facility] He denies any chest pain or palpitations. He does have some orthopnea. He is chronically short of breath. ALLERGIES: NONE. MEDICATIONS: 1. Aspirin 81 mg every day. 2. Lasix 20 mg twice a day. 3. Insulin NPH 10 units twice a day. 4. Regular insulin on a sliding scale as needed. 5. Levothyroxine 0.025 mcg every day. 6. Carbamazepine 600 mg every day. 7. Metformin 1 g twice a day. 8. Meclizine 25 mg twice a day. FAMILY HISTORY: Mother from a stroke. Father from a stroke as well. SOCIAL HISTORY: He denies any tobacco or alcohol use. REVIEW OF SYSTEMS: Positive for some weight gain over the last month. Otherwise, 10 systems, two-point per system negative other than HPI. PHYSICAL EXAMINATION: VITAL SIGNS: Blood pressure 119/82, heart rate 90, and temperature 97.2. GENERAL: Elderly gentleman, who is in no acute distress. HEAD: Normocephalic and atraumatic. NECK: Supple with midline trachea. LUNGS: Grossly clear to auscultation bilaterally. HEART: Regularly regular without any rubs. ABDOMEN: Soft, nontender, and nondistended. Normoactive bowel sounds. EXTREMITIES: Full range of motion, although the patient is in restraints. SKIN: Concerning the patient's groin-on the right medial thigh, there is an incision and drainage site. Old dressing and packing was removed. Exploration of the wound revealed an abscess cavity without gross purulence. There is some fat induration in the area. This should not be confused with retained abscess/purulent material. Wound was repacked. ASSESSMENT: Abscess of right groin-this was incised and drained by the primary service. I was asked to evaluate the area. There does not appear to be any indication for additional debridement. I have spoken with the nurses about dressing changes. This should at least be twice a day. Continue with antibiotic therapy. PLAN: Continue dressing changes. Please call if needed. Job ID: [id number]
[2019-10-20] MEDS: Ondansetron PF 4 MG/2 ML Vial IVP PRN (02:05)
[2019-10-20] MEDS ORDERED: Simethicone Chewable 80 MG TAB PO PRN (02:31)
[2019-10-20 03:57] LABS: #Basophils 0.1 thou/uL (0.0-0.2); #Eosinphils 0.3 thou/uL (0.0-0.7); #Lymphocytes 1.7 thou/uL (1.20-3.40); #Monocytes 0.6 thou/uL (0.11-0.59); #Neutrophils 7.1 thou/uL (1.40-6.50); %Basophils 0.7 % (0.0-1.0); %Eosinophils 3.2 % (0.0-10.0); %Lymphocytes 17.2 % (21.0-51.0); %Neutrophils 72.8 % (42.0-75.0); Hemoglobin 11.1 g/dL (14.0-18.0); Mean Corpuscular HGB CONC 32.5 g/dL (32.0-36.0); Mean Corpuscular Hemoglobin 31.7 pg (27.0-31.0); Mean Corpuscular Volume 97.8 fL (78.0-98.0); Mean Platelet Volume 7.6 fL (7.4-10.4); Platelet Count 391 thou/uL (130-400); RBC Distribution Width 14.3 % (11.5-14.5); Red Blood Cell (RBC) Count 3.51 mill/uL (4.70-6.10); White Blood Cell (WBC) Count 9.8 thou/uL (4.8-10.8)
[2019-10-20 04:15] LABS: Anion Gap 15 mmol/L (10-20); BUN (Urea Nitrogen) 24 mg/dL (8.4-25.7); Calc. Creatinine Clearance 77 mL/min (70-130); Calcium 8.8 mg/dL (7.8-10.44); Carbon Dioxide 24 mmol/L (23-31); Chloride 95 mmol/L (98-107); Estimated GFR-MDRD 56; Glucose 249 mg/dL (83-110); Potassium 4.2 mmol/L (3.5-5.1); Sodium 130 mmol/L (136-145)
[2019-10-20] MEDS: Clindamycin/D5W 900 MG in Premix Bag 1 BAG IVPB SCH (04:18)
--- NOTE | 2019-10-20 06:01 | PDOC.FM ---
- Subjective Subjective: Pt is sleepy this morning. Denies complaints. Does not really seem like he wants to talk because he was dozing in and out of sleep. Garcia in place. - Objective MAR Reviewed: Yes Vital Signs & Weight: Vital Signs (12 hours) Temp Pulse Ox 10/20/19 03:17 97.2 F L 10/19/19 23:43 97.3 F L 10/19/19 20:00 96 10/19/19 19:40 98.0 F Weight Weight 109.27 kg Most Recent Monitor Data Heart Rate from ECG 94 NIBP 121/68 NIBP BP-Mean 85 Respiration from ECG 23 SpO2 99 I&O: 10/18/19 10/19/19 10/20/19 06:59 06:59 06:59 Intake Total 1830 270 Output Total 3643 500 600 Balance -1813 -230 -600 Result Diagrams: 10/20/19 03:13 10/20/19 03:13 Phys Exam - Physical Examination Constitutional: NAD HEENT: sclera anicteric Respiratory: no wheezing, clear to auscultation bilateral Cardiovascular: RRR, no significant murmur Gastrointestinal: soft, non-tender Musculoskeletal: no edema, pulses present Dx/Plan (1) CHF (congestive heart failure) Code(s): I50.9 - HEART FAILURE, UNSPECIFIED Status: Acute (2) DM II (diabetes mellitus, type II), controlled Code(s): E11.9 - TYPE 2 DIABETES MELLITUS WITHOUT COMPLICATIONS Status: Acute (3) HTN (hypertension) Code(s): I10 - ESSENTIAL (PRIMARY) HYPERTENSION Status: Acute (4) Hypothyroid Code(s): E03.9 - HYPOTHYROIDISM, UNSPECIFIED Status: Acute (5) Leukocytosis Code(s): D72.829 - ELEVATED WHITE BLOOD CELL COUNT, UNSPECIFIED Status: Acute (6) Macrocytic anemia Code(s): D53.9 - NUTRITIONAL ANEMIA, UNSPECIFIED Status: Acute (7) Mitral valve anterior leaflet prolapse Code(s): I34.1 - NONRHEUMATIC MITRAL (VALVE) PROLAPSE Status: Acute - Plan Plan: 74 y/o male admitted for further treatment and workup of acute CHF exacerbation : # Acute CHF exacerbation, HFrEF 2/2 mitral valve regurgitation - continue diuresis - FREDDY in 02/2019: ruptured chordae of anterior leaflet MV prolapse with severe MR. biatrial enlargement, RV dilation with decreased RV function. EF 35-40%. - TTE 10/14/19: EF 50-55% - CXR RLL atelectais - CTA chest: R sided pleural effusion, no PE. D-dimer 2.49 - BNP 570 - Fluid restrict <1800 mL daily, daily weights, strict I/O. - Lasix 20mg BID PO, home dose - Cardiology consulted - If pt would like to have valve repair will need to be transferred for procedure as we do not do this at our facility, cards does not believe he is a great candidate for procedure due to depressed EF, also believe he is non-compliant complicating exacerbations. - Waiting for [facility] to call for acceptance. - Will hold in IMCU at this time # Abscess/Cellulitis R Groin - Large abscess I&D 10/18, 150 cc of fluid. - gen surg consult: no additional I&D recommended. - continue abx, transition to PO - dressing changes BID, wound care consulted. # Urinary Retention - on flomax - garcia in place - urine culture: beta hemolytic strep < 10,000 cfu # Indeterminate troponin levels - stable - Trop 0.058 indeterminate, denies chest pain. - EKG: Sinus, rate 99, no ST elevations or depressions. - Most likely 2/2 volume overload and stretching of myocytes # FABIAN, Cardiorenal Syndrome - stable - monitor diuresis. # R sided Pleural effusion - stable - monitor # hx of DM II - a1c 8.6 - continue metformin 1000 mg BID, SSI, Qachs accuchecks. Add Lantus 5 # Hx of HTN - will monitor and optimize therapy. # Hx of hypothyroidism Subtherapeutic. - start levothyroxine 50 mcg. Recheck in the outpt setting for appropriate titration. # Macrocytic anemia with iron deficiency - Iron, ITBC are low. ferritin WNL. - B12 WNL, folate borderline although this was not an RBC folate. Code status: full code diet: HH, CC, <1800 mL daily fluid restriction dvt ppx: lovenox Dispo: [facility], pending transfer to [facility] Addendum - Attending - Attending Attestation Date/Time: 10/20/19 0842 I personally evaluated the patient and discussed the management with Dr. Miranda I agree with the History, Examination, Assessment and Plan documented above with any addition or exceptions noted below.Patient stable awaiting placement to [facility] for further mitral valve surgery evaluation. Patient is stable will convert po antibiotics continue wound dressing changes bid . Patient appears to have reached maximum inpatient benefit and [facility] definitive care per [facility].
[2019-10-20] MEDS: Levothyroxine Sodium 50 MCG TAB PO SCH (06:06)
[2019-10-20] MEDS: Insulin Regular 300 UNITS/3 ML VIAL SC PRN ×2 (06:07→13:09)
[2019-10-20] MEDS ORDERED: Senokot S 8.6-50 MG TAB PO SCH (09:00)
[2019-10-20] MEDS ORDERED: Clindamycin 150 MG CAP PO SCH (09:00)
[2019-10-20] MEDS: Aspirin 81 mg Enteric Coated Tablet PO SCH (09:27)
[2019-10-20] MEDS: Lisinopril 10 MG TAB PO SCH (09:28)
[2019-10-20] MEDS: Acetaminophen 325 MG TAB PO SCH ×2 (09:28→15:35)
[2019-10-20] MEDS: Tamsulosin HCl 0.4 MG CAP PO SCH (09:28)
[2019-10-20] MEDS: Polyethylene Glycol 3350 17 GM Packet PO SCH (09:28)
[2019-10-20] MEDS: Enoxaparin Sodium 40 MG/0.4 ML SYRINGE SC SCH (09:28)
[2019-10-20] MEDS: metFORMIN 500 MG TAB PO SCH ×2 (09:28→17:23)
[2019-10-20] MEDS: Furosemide 20 MG TAB PO SCH ×2 (09:28→13:08)
[2019-10-20] MEDS: Insulin Glargine 5 UNITS in Pre-Filled Syringe 1 EACH SC SCH (09:29)
[2019-10-20] MEDS ORDERED: Insulin Glargine 5 UNITS in Pre-Filled Syringe 1 EACH SC SCH (09:45)
--- NOTE | 2019-10-20 12:44 | PDOC.CPN ---
- Subjective Date: 10/20/19 Time: 12:42 Interval history: No angina. Breathing at baseline. - Review of Systems General: denies: fever/chills, weight/appetite/sleep changes, night sweats, fatigue Respiratory: denies: cough, congestion, shortness of breath, exercise intolerance Cardiovascular: denies: chest pain, palpitation, edema, paroxysmal nocturnal dyspnea, orthopnea Gastrointestinal: denies: nausea, vomiting, diarrhea, constipation, abd pain, GI bleeding Musculoskeletal: denies: pain, tenderness, stiffness, swelling, arthritis/ arthralgias Neurological: denies: numbness, syncope, seizure, weakness - Objective Allergies/Adverse Reactions: Allergies Allergy/AdvReac Type Severity Reaction Status Date / Time No Known Allergies Allergy Verified 10/12/19 22:31 Visit Medications: Current Medications Acetaminophen (Tylenol) 650 mg PO TID [facility] Last Admin: 10/20/19 09:28 Dose: 650 mg Aspirin (Ecotrin) 81 mg PO DAILY [facility] Last Admin: 10/20/19 09:27 Dose: 81 mg Carbamazepine (Tegretol Xr) 600 mg PO DAILY [facility] Last Admin: 10/20/19 09:27 Dose: 600 mg Cephalexin (Keflex) 500 mg PO Q6HR [facility] Dextrose/Water (Dextrose 50%) 25 gm SLOW IVP PRN PRN PRN Reason: Hypoglycemia Diphenhydramine HCl (Benadryl) 25 mg PO TIDPRN PRN PRN Reason: ALLERGIES/ITCHING Enoxaparin Sodium (Lovenox) 40 mg SC 0900 [facility] Last Admin: 10/20/19 09:28 Dose: 40 mg Furosemide (Lasix) 20 mg PO 0900,1400 [facility] Last Admin: 10/20/19 09:28 Dose: 20 mg Glucagon (Glucagon) 1 mg IM PRN PRN PRN Reason: Hypoglycemia Dextrose/Water (D5w) 1,000 mls @ 0 mls/hr IV .Q0M PRN PRN Reason: Hypoglycemia Insulin Glargine 10 units/ (Miscellaneous Medication) 0.1 mls @ 0 mls/hr SC QAM [facility] Insulin Human Regular (Humulin R) 0 units SC .MILD SLIDING SCALE PRN PRN Reason: Mild Correctional Scale Last Admin: 10/20/19 06:07 Dose: 3 unit Insulin Human Regular (Humulin R) 0 units SC .BEDTIME SLIDING SC PRN PRN Reason: Bedtime Correctional Scale Last Admin: 10/18/19 20:32 Dose: 2 unit Levothyroxine Sodium (Synthroid) 50 mcg PO 0600 [facility] Last Admin: 10/20/19 06:06 Dose: 50 mcg Lisinopril (Zestril) 10 mg PO DAILY [facility] Last Admin: 10/20/19 09:28 Dose: 10 mg Loratadine (Claritin) 10 mg PO DAILYPRN PRN PRN Reason: Allergies Meclizine HCl (Antivert) 25 mg PO BIDPRN PRN PRN Reason: Dizziness Last Admin: 10/18/19 06:19 Dose: 25 mg Metformin HCl (Glucophage) 1,000 mg PO BID-[facility] Last Admin: 10/20/19 09:28 Dose: 1,000 mg Nystatin (Mycostatin Powder) 0 gm TOP BID PRN PRN Reason: Topical Irritations Ondansetron HCl (Zofran Odt) 4 mg PO Q6H PRN PRN Reason: Nausea/Vomiting Ondansetron HCl (Zofran) 4 mg IVP Q6H PRN PRN Reason: Nausea/Vomiting Last Admin: 10/20/19 02:05 Dose: 4 mg Polyethylene Glycol (Miralax) 17 gm PO DAILY [facility] Last Admin: 10/20/19 09:28 Dose: 17 gm Senna/Docusate Sodium (Senokot S) 1 tab PO BID [facility] Last Admin: 10/20/19 06:06 Dose: 1 tab Simethicone (Mylicon Chewable) 80 mg PO ONE PRN PRN Reason: Gas Pain Stop: 10/23/19 02:32 Last Admin: 10/20/19 06:06 Dose: 80 mg Sodium Chloride (Flush - Normal Saline) 10 ml IVF Q12HR [facility] Last Admin: 10/20/19 09:29 Dose: 10 ml Sodium Chloride (Flush - Normal Saline) 10 ml IVF PRN PRN PRN Reason: Saline Flush Last Admin: 10/20/19 04:19 Dose: 10 ml Tamsulosin HCl (Flomax) 0.4 mg PO DAILY [facility] Last Admin: 10/20/19 09:28 Dose: 0.4 mg Vital Signs & Weight: Vital Signs Temp Pulse Ox 10/20/19 11:18 96.3 F L 10/20/19 07:33 97.0 F L 10/20/19 07:27 98 10/20/19 03:17 97.2 F L Weight 240 lb 14.4 oz - Physical Exam General: appears well HEENT: mucus membranes moist Neck: supple neck Cardiac: regular rate and rhythm Lungs: normal breath sounds Neuro: grossly intact Abdomen: unremarkable Extremities: no edema Skin: clear Musculoskeletal: no pain - Labs Result Diagrams: 10/20/19 03:13 10/20/19 03:13 Troponin/CKMB CK-MB (CK-2) 8.7 ng/mL (0-6.6) H* 10/12/19 15:44 Troponin I 0.056 ng/mL (< 0.028) H 10/17/19 15:04 - Telemetry Sinus rhythms and dysrhythmias: sinus rhythm - Assessment/Plan Assessment/Plan: 1. Acute on chronic systolic and diastolic heart failure. Resolved. 2. Severe MR 3. Flail posterior mitral valve leaflet 4. EF at 50-55%. PLAN: - PO lasix. - Will need Mitral valve repair. This may be done as an outpatient. - Continue other meds. - May discharge back to [facility] from [facility] at any point. - Will sign off, please call with any questions.
[2019-10-20 12:58] VITALS: BMI 33.5
[2019-10-20] MEDS: Cephalexin 250 MG CAP PO SCH ×2 (13:08→17:25)
--- NOTE | 2019-10-20 15:12 | PRG ---
DATE OF SERVICE: 10/20/2019 Transition of care note. RESIDENT: Maik Cain DO. DATE OF CARE: 10/12/2019 to 10/19/2019. HPI/HOSPITAL COURSE: Jaime Soto is a 74-year-old male with past medical history significant for hypothyroidism, congestive heart failure secondary to mitral valve prolapse/regurgitation, macrocytic anemia, hypertension, diabetes, who presented to our service in an acute heart failure exacerbation. The patient's most previous transesophageal echocardiogram was in 02/2019, which revealed a ruptured chordae of anterior leaflet mitral valve causing severe mitral valve regurgitation. There was biatrial enlargement, right ventricular dilation with decreased right ventricular function as well. He had an EF of 35% to 40% at that time. A repeat echocardiogram revealed ejection fraction of 50% to 55%, which revealed much improvement. This echocardiogram was taken after the patient was diuresed with Lasix 40 mg IV b.i.d. for majority of the time I had him. He was also started on fluid restriction less than 1800 mL daily. His BNP was 570 on initial presentation. He did not trend the BNP. He was also noted to have a right-sided pleural effusion on his CTA chest, but no evidence of a PE, D-dimer was 2.49. His chest x-ray revealed right lower lobe atelectasis. The patient diuresed decently well. He was fairly stable for most of the time that I had him, but he could tell he would become lethargic, and at baseline, he was AAO x1 to 2. Unsure if this is secondary to the mitral valve regurgitation or if this is just his baseline. When he worked with Physical Therapy, he had difficulty ambulating without assistance. Cardiology was consulted, who recommended that he be transferred to [facility] for mitral valve replacement. For most of his stay, we were waiting on acceptance at the facility due to no bed availability at the facility. On admission, the patient had an elevated white cell count around 20. We initially felt there was a pneumonia within his right pleural effusion, atelectasis, so we started him on ceftriaxone and azithromycin. On the third day of stay, we noticed that he had a right groin cellulitis, so we discontinued those antibiotics and started him on clindamycin and one day's worth of fluconazole. With this treatment, his white blood cell came down to 12-13 level and then maintained there. On 10/18/2019, he was noted to have a large abscess underneath the vague area of induration. None of it was necrotic, and there was no crepitus, but we decided to perform a bedside I and D. This alleviated about 150 mL of fluid. The abscess was much larger than what was able to be visually seen on inspection and it totalled posteriorly and deep. This region was initially packed. On 10/19/2019, we consulted General Surgery, who finished breaking up the loculations and packed the wound. Surgery was going to stay on board for the case, but was not concerned for necrotizing fasciitis or fistula with bowel. The patient also began experiencing urinary retention. He had a straight catheter placed twice. On the third episode, a Green catheter was placed and he remained with Green catheter in. He was started on Flomax as well. The patient on presentation had an FABIAN with creatinine at 1.41. When starting Lasix, his creatinine began to downward trend as low as 1.01. Just of note, the patient did have an episode of altered mentation and decreased alert and orientedness and difficulty answering questions. So, we moved him to the IMCU for further monitoring and wanted him to be on BiPAP, but through the whole day, he was not placed on BiPAP, but mentation returned, but we kept him in ICU just for further monitoring. He also had an episode in the IMCU of blood pressures dropping to systolic 60s. He was placed in Trendelenburg and given 500 mL of bolus, which subsequently elevated the patient's blood pressures. Since that event, he has not had any more episodes of hypotension. Throughout that whole event, he remained alert and intact. Blood draws were within normal limit. Ultimately, the patient is waiting for transfer to [facility] for procedure. Job ID: [id number]
[2019-10-20 15:38] VITALS: TEMP 96
[2019-10-21] MEDS ORDERED: Insulin Glargine 10 UNITS in Pre-Filled Syringe 1 EACH SC SCH (09:00)
--- NOTE | 2019-10-21 23:57 | PQF ---
DEEPAK GAVIRIA BRANDON [id number] CLINICAL DOCUMENTATION CLARIFICATION FORM: POST DISCHARGE Addendum to original discharge summary date: ____ Late entry note date: __ DATE: 10/21/2019 ATTN: Jeff Del Rio Please exercise your independent, professional judgment in responding to the clarification form. Clinical indicators are provided on the bottom of this form for your review Please check appropriate box(s): Incision and Drainage only (No Debridement): Depth:[ x ] Skin [x ] Subcutaneous [ ] Fascia [ ] Muscle [ ] Tendon [ ] Bone Approach:[ x ] Open [ ] Percutaneous [ ] Other procedure diagnosis [ ] Unable to determine For continuity of documentation, please document condition throughout progress notes and discharge summary. Thank You. CLINICAL INDICATORS - SIGNS / SYMPTOMS / LABS Operative report p1 10/18 Dr Amador A linear 2cm incision along the local skin lines was made and the purulent material expressed Operative report p1 10/18 Dr Amador The abscess was explored thoroughly and sequestered pocket were opened. The abscess tracked deep and further posteriorly than visualized on pre-procedure visual exam which was covered by thick area of induration Operative report 10/18 Dr Amador Abscess was packed. Bleeding was minimal RISK FACTORS PN 10/15 74 year-old male Operative report 10/18 Abscess, Cellulitis HP p1 10/12 DM type 2 HP p2 10/12 Former Smoker TREATMENTS: Operative report 10/18 Incision and Drainage of abscess OCT 26 IV Clindamycin 50mls OCT 26 Diflucan 150mg OCT 26 - IVF (This form is maintained as a part of the permanent medical record) 2014 [employer] All Rights Reserved [email or web address]
--- NOTE | 2019-10-22 | PQF ---
DEEPAK GAVIRIA GRADY *r [id number] CLINICAL DOCUMENTATION CLARIFICATION FORM: POST DISCHARGE Addendum to original discharge summary date: ____ Late entry note date: __ DATE: 10/21/2019 ATTN: Champ Solomon Please exercise your independent, professional judgment in responding to the clarification form. Clinical indicators are provided on the bottom of this form for your review Please check appropriate box(s): [ x ] Encephalopathy: Etiology: [ ] Hypertensive [ ] Metabolic [ ] Toxic [ x ] Unspecified ___multifactorial resolved____HF NELSON hypoxia [ ] Other (please specify) [ ] Transient Alteration of Awareness [ ] Other diagnosis [ ] Unable to determine In addition, please specify: Present on Admission (POA): [ x ] Yes [ ] No [ ] Unable to determine For continuity of documentation, please document condition throughout progress notes and discharge summary. Thank You. CLINICAL INDICATORS - SIGNS / SYMPTOMS / LABS: Family Medicine PN p1 10/16 Dr Cain Pt is short of breath, slightly altered this am. HE has slow recollection and difficulty comprehending quertion. He has slight upper airway wheezing, tachypnea Family Medicine PN p4 10/16 Dr Cain Decreased mentation Family Medicine PN p4 10/17 Dr Phillips Undiagnosed NELSON, preferred for pt to be on Cpap overnight, likely contributed to his AMS yesterday RISK FACTORS Family Medicine H&P p1 2 74 year old male Family Medicine H&P p1 2 DM type 2 Family Medicine H&P p1 2 HTN Family Medicine H&P p1 2 Laury valve prolapse Family Medicine H&P p1 2 Acute CHF exacerbation Family Medicine H&P p5 2 FABIAN Family Medicine H&P p6 2 Hypothyroidism Family Medicine H&P p6 2 Macrocytic Anemia Family Medicine PN p1 10/16 - Cellulitis Family Medicine PN p4 10/17 - NELSON TREATMENTS: OCT 26 IV Lasix 40mg OCT 26 Insulin 2 Unit SC OCT 26 IVF 1L OCT 26 Azithromycin 500mg OCT 26 Carbatrol 6500mg OCT 26 Tegretol Xr 600mg OCT 26 IV Ceftriaxone 1gm OCT 26 Keflex 500mg OCT 26 Lactulose 15mg Oral (This form is maintained as a part of the permanent medical record) 2014 [employer] All Rights Reserved [email or web address]
== END 2019-10-20 19:12 | DRG 988 ==
LOC: ERS 15:00 → EEVIPCON 15:00 → 2NO 18:49 → IMCU/EMU 10-16 13:34
PROVIDERS: ADMIT Family Medicine; ATTEND Family Medicine
PROC: 5A09357 Assistance with Respiratory Ventilation, Less than 24 Consecutive Hours, Continuous Positive Airway Pressure (ICD-10-PCS; principal; 2019-10-16)
PROC: 0T9B70Z Drainage of Bladder with Drainage Device, Via Natural or Artificial Opening (ICD-10-PCS; 2019-10-17)
PROC: 0J9C0ZZ Drainage of Pelvic Region Subcutaneous Tissue and Fascia, Open Approach (ICD-10-PCS; 2019-10-18)
DX: I50.43 Acute on chronic combined systolic (congestive) and diastolic (congestive) heart failure (principal); N17.9 Acute kidney failure, unspecified; J98.11 Atelectasis; L03.314 Cellulitis of groin; L02.214 Cutaneous abscess of groin; G93.40 Encephalopathy, unspecified; I34.1 Nonrheumatic mitral (valve) prolapse; E11.9 Type 2 diabetes mellitus without complications; E03.9 Hypothyroidism, unspecified; I25.10 Atherosclerotic heart disease of native coronary artery without angina pectoris; M19.90 Unspecified osteoarthritis, unspecified site; N62 Hypertrophy of breast; K21.9 Gastro-esophageal reflux disease without esophagitis; I50.810 Right heart failure, unspecified; G47.33 Obstructive sleep apnea (adult) (pediatric); E53.8 Deficiency of other specified B group vitamins; D50.9 Iron deficiency anemia, unspecified; I10 Essential (primary) hypertension; R33.9 Retention of urine, unspecified; I95.9 Hypotension, unspecified; Z90.49 Acquired absence of other specified parts of digestive tract; Z79.890 Hormone replacement therapy; Z91.14 Patient's other noncompliance with medication regimen; Z91.19 Patient's noncompliance with other medical treatment and regimen; Z79.1 Long term (current) use of non-steroidal anti-inflammatories (NSAID)
CPT/HCPCS: 36415; 36416; 71045; 71046; 71275; 80048; 80053; 80306; 81001; 82550; 82553; 82607; 82728; 82746; 82805; 83036; 83540; 83550; 83735; 83880; 84145; 84439; 84443; 84481; 84484; 85025; 85379; 87040; 87070; 87077; 87086; 87186; 87205; 93005; 93306; 93798; 93970; 94640; 94660; 96374; J0696; J1650; J1815; J1940; J2405; J3490; J7620; J8597; Q9967